=== PATIENT | female | born 1970 | race Caucasian/White ===

== ENCOUNTER 2022-02-01 21:33 | Emergency (ER) | payer BC ==
--- NOTE | 2022-02-01 22:30 | ER ---
Nurse's Notes [facility] Name: Sue Haley Age: 51 yrs Sex: Female : 1970 Arrival Date: 02/01/2022 Time: 21:36 Bed Waiting Private MD: Diagnosis: Presentation: 02/01 21:46 Chief complaint: Patient states: "nauseated for a month, but a really long time". harjinder Coronavirus screen: Vaccine status: Patient reports being unvaccinated. Ebola Screen: Patient negative for fever greater than or equal to 101.5 degrees Fahrenheit, and additional compatible Ebola Virus Disease symptoms Patient denies exposure to infectious person. Patient denies travel to an Ebola-affected area in the 21 days before illness onset. Initial Sepsis Screen: Does the patient meet any 2 criteria? No. Patient's initial sepsis screen is negative. Does the patient have a suspected source of infection? No. Patient's initial sepsis screen is negative. Risk Assessment: Do you want to hurt yourself or someone else? Patient reports no desire to harm self or others. Onset of symptoms is unknown. 21:46 Method Of Arrival: Ambulatory harjinder 21:46 Acuity: ELSY 4 harjinder Triage Assessment: 21:50 General: Appears in no apparent distress. comfortable, Behavior is calm, cooperative. harjinder Pain: Denies pain. GI: Reports nausea. 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 N/A - Post-menopause harjinder Historical: - Allergies: 21:49 Codeine; harjinder - Home Meds: 21:49 aspirin 325 mg Oral tab 1 tab once daily for Prevention of Transient Ischemic Attacks harjinder [Active]; atorvastatin 20 mg Oral tab 1 tab once daily for Prevention of Transient Ischemic Attacks [Active]; Celexa 40 mg Oral tab for Anxiety with Depression [Active]; clonazepam 0.5 mg Oral tab 1 tab 3 times per day for Panic Disorder [Active]; omeprazole 20 mg Oral cpDR 1 cap once daily [Active]; Plavix 75 mg Oral tab 1 tab once daily [Active]; - PMHx: 21:49 Depression; TIA; harjinder - Immunization history:: Client reports having NOT received the Covid vaccine. - Social history:: Smoking status: Reported history of juuling and/or vaping. Patient uses alcohol. Vital Signs: 21:46 BP 103 / 77; Pulse 102; Resp 18; Temp 98.4; Pulse Ox 99% on R/A; Weight 30.84 kg; harjinder Height 5 ft. 0 in. (152.40 cm); Pain 0/10; 21:50 BP 103 / 77; Pulse 102; Resp 18; Temp 98.4; Pulse Ox 98% on R/A; Pain 0/10; harjinder 21:46 Body Mass Index 13.28 (30.84 kg, 152.40 cm) harjinder ED Course: 21:36 Patient arrived in ED. kc5 21:49 Triage completed. harjinder 21:51 Arm band placed on right wrist. harjinder 22:06 Pieter Adames DO is Attending Physician. ms3 22:29 Patient's name was called from ER lobby. No response. Unable to locate patient. Will bb disposition as left without being seen by a provider. Administered Medications: No medications were administered Outcome: 22:30 Patient left the ED. bb Signatures: Addie Chan RN RN bb Pieter Adames DO DO ms3 Georgina Zapata kc5 Addie Gavin RN RN harjinder
[2022-02-01 23:50] VITALS: BP 103/77; TEMP 98.4
[2022-02-01 23:52] VITALS: O2SAT 98
--- NOTE | 2022-02-02 22:30 | EDPHYS ---
Physician Documentation [facility] Name: Sue Haley Age: 51 yrs Sex: Female : 1970 Arrival Date: 02/01/2022 Time: 21:36 Bed Waiting Private MD: ED Physician Pieter Adames HPI: 02/02 04:35 Patient left ED prior to being seen.. 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 N/A - Post-menopause harjinder Historical: - Allergies: 21:49 Codeine; harjinder - Home Meds: 21:49 aspirin 325 mg Oral tab 1 tab once daily for Prevention of Transient Ischemic Attacks harjinder [Active]; atorvastatin 20 mg Oral tab 1 tab once daily for Prevention of Transient Ischemic Attacks [Active]; Celexa 40 mg Oral tab for Anxiety with Depression [Active]; clonazepam 0.5 mg Oral tab 1 tab 3 times per day for Panic Disorder [Active]; omeprazole 20 mg Oral cpDR 1 cap once daily [Active]; Plavix 75 mg Oral tab 1 tab once daily [Active]; - PMHx: 21:49 Depression; TIA; harjinder - Immunization history:: Client reports having NOT received the Covid vaccine. - Social history:: Smoking status: Reported history of juuling and/or vaping. Patient uses alcohol. Vital Signs: 21:46 BP 103 / 77; Pulse 102; Resp 18; Temp 98.4; Pulse Ox 99% on R/A; Weight 30.84 kg; harjinder Height 5 ft. 0 in. (152.40 cm); Pain 0/10; 21:50 BP 103 / 77; Pulse 102; Resp 18; Temp 98.4; Pulse Ox 98% on R/A; Pain 0/10; harjinder 21:46 Body Mass Index 13.28 (30.84 kg, 152.40 cm) harjinder Administered Medications: No medications were administered Disposition Summary: 02/01/22 22:30 Eloped Disposition: before being seen by provider winston Reason: unknown bb Signatures: Addie Chan RN RN Pieter Rodriguez DO DO ms3 Addie Gavin RN RN bo
== END 2022-02-01 22:30 | disposition left against medical advice (07) ==
LOC: ER 21:33
DX: R11.0 Nausea (principal); Z53.21 Procedure and treatment not carried out due to patient leaving prior to being seen by health care provider
CPT/HCPCS: 99281

== ENCOUNTER 2024-06-25 19:55 | Emergency (ER) | payer BC ==
[2024-06-25] MEDS ORDERED: ONDANSETRON 4 MG/2 ML VIAL ONE (22:37)
[2024-06-25] MEDS ORDERED: FAMOTIDINE 20 MG/2 ML VIAL IV ONE (22:37)
[2024-06-25] MEDS ORDERED: NA CHLORIDE 0.9% 1,000 ML ONE (22:37)
[2024-06-25] MEDS ORDERED: MORPHINE 2 MG/ML SYR ONE (22:52)
[2024-06-25 23:06] LABS: Absolute Monocytes 0.6 K/uL (0.1-1.3); Absolute Neutrophil 4.4 K/uL (1.8-8.0); Basophils % 0.3 % (0-1.3); Eosinophils % 0.7 % (0-4.4); Hematocrit 46.3 % (36.0-45.0); Hemoglobin 15.8 g/dL (12.0-15.0); Lymphocytes % 27.6 % (15.3-44.8); MCHC 34.2 g/dL (32.0-36.0); MCV 93.7 fL (80-100); MPV 7.1 fL (7.6-11.3); Monocytes % 9.1 % (3.3-12.3); Neutrophils % 62.3 % (41.7-73.7); Nucleated Red Blood Cells % 0.1 % (0-0); Platelets 373 thou/uL (152-406); RBC Red Blood Cell Count 4.94 M/uL (3.86-4.86); Red Cell Distribution Width 13.3 % (12.1-15.2)
[2024-06-25 23:20] LABS: Albumin 4.2 g/dL (3.4-5.0); Albumin/Globulin Ratio 0.9 (1.1-1.8); Anion Gap 9.1 mEq/L (5.0-15.0); Bilirubin Total 0.4 mg/dL (0.2-1.0); Globulin 4.6 g/dL (2.3-3.5); Potassium 3.1 mEq/L (3.5-5.1); Protein, Total 8.8 g/dL (6.4-8.2)
[2024-06-25 23:54] LABS: Specific Gravity 1.023 (1.005-1.030); Sqamous Epithelial None Seen /HPF (None Seen); Urine Bacteria None Seen /HPF (<20); Urine Bilirubin NEGATIVE (Negative); Urine Blood Trace (Negative); Urine Clarity Clear (Clear); Urine Color Light-Yellow (Yellow); Urine Culture Reflex Order NOT NEEDED; Urine Glucose NEGATIVE (Negative); Urine Ketones 1+ (Negative); Urine Microscopic Reflex YN ORDER UMIC; Urine Mucus Slight /HPF (None Seen); Urine Nitrite NEGATIVE (Negative); Urine Protein TRACE (Negative); Urine RBC <5 /HPF (None Seen); Urine Urobilinogen Normal (Normal); Urine WBC <5 /HPF (<5)
--- NOTE | 2024-06-26 01:00 | EDPHYS ---
Physician Documentation [facility] Name: Sue Haley Age: 54 yrs Sex: Female : 1970 Arrival Date: 06/25/2024 Time: 19:55 Bed 8 Private MD: ED Physician Johann Loco HPI: 06/25 22:30 This 54 yrs old Female presents to ER via Ambulatory with complaints of Abdominal Pain, cp Diarrhea. 22:30 The patient complains of pain in the left flank. Onset: The symptoms/episode cp began/occurred 3 day(s) ago. 22:30 Associated signs and symptoms: Pertinent positives: diarrhea, Pertinent negatives: cp fever, hematuria, vomiting. The patient has experienced similar episodes in the past, today's symptoms are similar, to when the patient was apparently diagnosed with colitis. Historical: - Allergies: 20:22 No Known Allergies; tl4 - Home Meds: 20:22 Celexa 40 mg Oral tab for Anxiety with Depression [Active]; mirtazapine 15 mg Oral tl4 tablet 1 tab every day at bedtime [Active]; omeprazole 20 mg Oral cpDR 1 cap once daily [Active]; - PMHx: 20:22 Depression; Gastroesophageal reflux disease; PTSD; TIA; tl4 - PSHx: 20:23 perforated ulcer; tl4 - Immunization history:: Adult Immunizations unknown. - Infectious Disease History:: Denies. - Social history:: Smoking status: Patient reports the use of cigarette tobacco products, smokes one pack cigarettes per day. ROS: 22:35 Constitutional: Negative for body aches, chills, fever, poor PO intake, cp 22:35 Eyes: Negative for injury, pain, redness, and discharge, cp 22:35 ENT: Negative for drainage from ear(s), ear pain, sore throat, difficulty swallowing, difficulty handling secretions, 22:35 Cardiovascular: Negative for chest pain, palpitations, 22:35 Respiratory: Negative for cough, shortness of breath, wheezing, 22:35 Abdomen/GI: Positive for abdominal pain, diarrhea, Negative for vomiting, constipation, 22:35 Back: Positive for flank pain, on the left, 22:35 Skin: Negative for rash, 22:35 All other systems are negative, Exam: 22:40 Constitutional: The patient appears in no acute distress, alert, awake, cp non-diaphoretic, non-toxic, well developed, well nourished, uncomfortable, 22:40 Head/Face: Normocephalic, atraumatic. cp 22:40 Eyes: Periorbital structures: appear normal, Conjunctiva: normal, no exudate, no injection, Sclera: no appreciated abnormality, Lids and lashes: appear normal, bilaterally, 22:40 ENT: External ear(s): are unremarkable, Nose: is normal, Mouth: Lips: moist, Oral mucosa: pink and intact, moist, Posterior pharynx: Airway: no evidence of obstruction, patent, 22:40 Chest/axilla: Inspection: normal, 22:40 Cardiovascular: Rate: tachycardic, Rhythm: regular, Edema: is not appreciated, JVD: is not appreciated, 22:40 Respiratory: the patient does not display signs of respiratory distress, Respirations: normal, no use of accessory muscles, no retractions, labored breathing, is not present, Breath sounds: are clear throughout, no decreased breath sounds, no stridor, no wheezing, 22:40 Abdomen/GI: Inspection: abdomen appears normal, Bowel sounds: active, all quadrants, Palpation: soft, in all quadrants, moderate abdominal tenderness, in the posterior aspect of left lateral abdomen and anterior aspect of left lateral abdomen, rebound tenderness, is not appreciated, involuntary guarding, is not appreciated, 22:40 Skin: cellulitis, is not appreciated, no rash present. 22:40 Neuro: Orientation: to person, place \T\ time. Mentation: is normal, Motor: moves all fours, Vital Signs: 20:16 BP 187 / 115; Pulse 119; Resp 20; Temp 98.5(O); Pulse Ox 98% on R/A; Weight 38.56 kg; tl4 Height 5 ft. 0 in. ; Pain 8/10; 23:02 BP 165 / 112; Pulse 93; Pulse Ox 97% on R/A; Pain 8/10; tm6 23:31 Pain 2/10; tm6 08/17 00:30 BP 164 / 98; Pulse 95; Pulse Ox 96% on R/A; Pain 2/10; tm6 01:24 BP 154 / 110; Pulse 105; Resp 19; Temp 98.7; Pulse Ox 99% on R/A; Pain 0/10; tm6 08/16 20:16 Body Mass Index 16.60 (38.56 kg, 152.4 cm) tl4 06/25 20:16 Pain Scale: Adult tl4 23:02 Pain Scale: Adult tm6 23:31 Pain Scale: Adult tm6 06/26 00:30 Pain Scale: Adult tm6 01:24 Pain Scale: Adult tm6 MDM: 06/25 20:29 Patient medically screened. cp 06/26 00:58 Data reviewed: vital signs, nurses notes, lab test result(s), radiologic studies, CT cp scan, and as a result, I will discharge patient. 00:58 Differential diagnosis: nephrolithiasis, pyelonephritis, UTI, diverticulitis, colitis. cp I considered the following discharge prescriptions or medication management in the emergency department Medications were administered in the Emergency Department. See MAR. Counseling: I had a detailed discussion with the patient and/or guardian regarding the historical points, exam findings, and any diagnostic results supporting the discharge/admit diagnosis, lab results, radiology results, to return to the emergency department if symptoms worsen or persist or if there are any questions or concerns that arise at home. Response to treatment: the patient's symptoms have markedly improved after treatment, and as a result, I will discharge patient. Special discussion: Based on the patient's Hx, exam, and Dx evaluation, there is no indication for emergent surgery or inpatient Tx. It is understood by the patient/guardian that if the Sx's persist or worsen they need to return immediately for re-evaluation. 06/25 20:34 Order name: CBC with Diff; Complete Time: 00:55 cp 06/26 00:55 Interpretation: Normal except: RBC 4.94; HGB 15.8; HCT 46.3; MPV 7.1. cp 06/25 20:34 Order name: CMP; Complete Time: 00:55 cp 06/26 00:55 Interpretation: Normal except: NA 135; K 3.1; GLUC 132; GFR 85; TP 8.8; GLOB 4.6; A/G cp 0.9. 06/25 20:34 Order name: Lipase; Complete Time: 00:55 cp 06/26 00:56 Interpretation: LIP 198; Reviewed. cp 06/25 20:34 Order name: Urinalysis w/ reflexes; Complete Time: 00:55 cp 06/26 00:56 Interpretation: Normal except: UKET 1+; UBLD Trace; UPROT TRACE. cp 06/25 20:34 Order name: CT Abd/Pelvis - IV Contrast Only cp 06/25 20:34 Order name: IV Saline Lock; Complete Time: 22:59 cp 06/25 20:34 Order name: Labs collected and sent; Complete Time: 22:59 cp Administered Medications: 06/25 22:59 Drug: Ondansetron IVP 4 mg IVP once; over 2 minutes Route: IVP; Site: right antecubital;tm6 23:30 Follow up: Response: No adverse reaction tm6 23:00 Drug: NS 0.9% IV 1000 ml IV at 1 bolus Per protocol; 1000 mL bolus Route: IV; Rate: 1 tm6 bolus; Site: right antecubital; 23:30 Follow up: Response: No adverse reaction; IV Status: Completed infusion; IV Intake: tm6 1000ml 23:00 Drug: Famotidine IVP 20 mg IVP once; dilute with 10 mL 0.9% NaCl; give over 2 minutes tm6 Route: IVP; Site: right antecubital; 23:30 Follow up: Response: No adverse reaction tm6 23:00 Drug: morphine IVP or IV 4 mg IVP once over 4 mins Route: IVP; Infused Over: 4 mins; tm6 Site: right antecubital; 23:31 Follow up: Pain 2/10 Adult; Response: No adverse reaction; Pain is decreased tm6 06/26 01:24 Drug: Potassium PO Effervescent Tablet 50 mEq PO once; dissolve in 4 ounces of water or tm6 juice Route: PO; 01:24 Follow up: Response: Medication administered at discharge. tm6 01:24 Drug: Dicyclomine IM 20 mg IM once Route: IM; Site: right gluteus; tm6 01:24 Follow up: Response: Medication administered at discharge. tm6 01:24 Drug: Loperamide PO 2 mg PO once Route: PO; tm6 01:24 Follow up: Response: Medication Administered at Departure tm6 Disposition Summary: 06/26/24 00:59 Discharge Ordered Notes: Location: Home cp Problem: new cp Symptoms: have improved cp Condition: Stable cp Diagnosis - Diarrhea, unspecified cp - Abdominal pain, unspecified cp Followup: cp - With: Private Physician - When: 2 - 3 days - Reason: Recheck today's complaints Discharge Instructions: - Discharge Summary Sheet cp - Abdominal Pain, Adult cp - Food Choices to Help Relieve Diarrhea, Adult cp - Diarrhea, Adult cp Forms: - Medication Reconciliation Form cp - Antibiotic Education cp - Prescription Opioid Use cp - Patient Portal Instructions cp - Leadership Thank You Letter cp Prescriptions: - Lomotil 2.5-0.025 mg Oral Tablet - take 1 tablet ORAL route every 6 hours As needed; 20 tablet; Refills: 0, cp Product Selection Permitted Signatures: Dispatcher [employer] EDMS Chrsitian Mckeon PA PA cp Bashir Turpin RN RN tm6 Hair Cesar RN RN tl4 Corrections: (The following items were deleted from the chart) 06/25 20:23 20:22 PSHx: perforated ulcer (TIA); tl4 tl4 20:34 20:34 Abdomen Pelvis W Con+CT.RAD.BRZ ordered. EDMS EDMS
--- NOTE | 2024-06-26 01:00 | ER ---
Nurse's Notes [facility] Name: Sue Haley Age: 54 yrs Sex: Female : 1970 Arrival Date: 06/25/2024 Time: 19:55 Bed 8 Private MD: Diagnosis: Diarrhea, unspecified;Abdominal pain, unspecified Presentation: 06/25 20:16 Chief complaint: Patient states: Pt c/o left side abdominal pain, left flank pain, tl4 diarrhea, nausea, and chills x 3 days. Pt has history of colitis and this feels similar. Pt denies urinary sxs, vomiting. Coronavirus screen: diarrhea, nausea. Ebola Screen: No symptoms or risks identified at this time. Initial Sepsis Screen: Does the patient meet any 2 criteria? No. Patient's initial sepsis screen is negative. Does the patient have a suspected source of infection? No. Patient's initial sepsis screen is negative. Risk Assessment: Do you want to hurt yourself or someone else? Patient reports no desire to harm self or others. Onset of symptoms was June 22, 2024. 20:16 Method Of Arrival: Ambulatory tl4 20:16 Acuity: ELSY 3 tl4 Triage Assessment: 20:23 General: Appears uncomfortable, Behavior is calm, cooperative. Pain: Complains of pain tl4 in back and abdomen. EENT: No signs and/or symptoms were reported regarding the EENT system. Neuro: Level of Consciousness is awake, alert, obeys commands, Oriented to person, place, time, situation. Cardiovascular: Capillary refill < 3 seconds Patient's skin is warm and dry. Respiratory: Airway is patent Respiratory effort is even, unlabored, Respiratory pattern is regular, symmetrical. GI: Reports lower abdominal pain, upper abdominal pain, diarrhea, nausea. : No signs and/or symptoms were reported regarding the genitourinary system. Derm: No signs and/or symptoms reported regarding the dermatologic system. Musculoskeletal: No signs and/or symptoms reported regarding the musculoskeletal system. Historical: - Allergies: 20:22 No Known Allergies; tl4 - Home Meds: 20:22 Celexa 40 mg Oral tab for Anxiety with Depression [Active]; mirtazapine 15 mg Oral tl4 tablet 1 tab every day at bedtime [Active]; omeprazole 20 mg Oral cpDR 1 cap once daily [Active]; - PMHx: 20:22 Depression; Gastroesophageal reflux disease; PTSD; TIA; tl4 - PSHx: 20:23 perforated ulcer; tl4 - Immunization history:: Adult Immunizations unknown. - Infectious Disease History:: Denies. - Social history:: Smoking status: Patient reports the use of cigarette tobacco products, smokes one pack cigarettes per day. Screenin:00 [facility] ED Fall Risk Assessment (Adult) History of falling in the last 3 months, tm6 including since admission No falls in past 3 months (0 pts) Confusion or Disorientation No (0 pts) Intoxicated or Sedated No (0 pts) Impaired Gait No (0 pts) Mobility Assist Device Used No (0 pt) Altered Elimination No (0 pt) Score/Fall Risk Level 0 - 2 = Low Risk Oriented to surroundings, Maintained a safe environment, Educated pt \T\ family on fall prevention, incl call for assistance when getting out of bed. Abuse screen: Denies threats or abuse. Denies injuries from another. Nutritional screening: No deficits noted. Tuberculosis screening: No symptoms or risk factors identified. Assessment: 23:00 General: Appears in no apparent distress. Behavior is calm, cooperative. Pain: tm6 Complains of pain in left upper quadrant and left lower quadrant Pain does not radiate. Pain currently is 8 out of 10 on a pain scale. Quality of pain is described as sharp. Neuro: Level of Consciousness is awake, alert, obeys commands, Oriented to person, place, time, situation. Cardiovascular: Patient's skin is warm and dry. Respiratory: Airway is patent Respiratory effort is even, unlabored, Respiratory pattern is regular, symmetrical. GI: Abdomen is flat, non-distended, Bowel sounds present X 4 quads. Abd is soft and non tender X 4 quads. Reports lower abdominal pain, upper abdominal pain, diarrhea, nausea. : No signs and/or symptoms were reported regarding the genitourinary system. EENT: No signs and/or symptoms were reported regarding the EENT system. Derm: No signs and/or symptoms reported regarding the dermatologic system. Musculoskeletal: No signs and/or symptoms reported regarding the musculoskeletal system. 06/26 00:31 Reassessment: Patient appears in no apparent distress at this time. Patient and/or tm6 family updated on plan of care and expected duration. Pain level reassessed. Patient is alert, oriented x 3, equal unlabored respirations, skin warm/dry/pink. Vital Signs: 06/25 20:16 BP 187 / 115; Pulse 119; Resp 20; Temp 98.5(O); Pulse Ox 98% on R/A; Weight 38.56 kg; tl4 Height 5 ft. 0 in. ; Pain 8/10; 23:02 BP 165 / 112; Pulse 93; Pulse Ox 97% on R/A; Pain 8/10; tm6 23:31 Pain 2/10; tm6 06/26 00:30 BP 164 / 98; Pulse 95; Pulse Ox 96% on R/A; Pain 2/10; tm6 01:24 BP 154 / 110; Pulse 105; Resp 19; Temp 98.7; Pulse Ox 99% on R/A; Pain 0/10; tm6 06/25 20:16 Body Mass Index 16.60 (38.56 kg, 152.4 cm) tl4 06/25 20:16 Pain Scale: Adult tl4 23:02 Pain Scale: Adult tm6 23:31 Pain Scale: Adult tm6 06/26 00:30 Pain Scale: Adult tm6 01:24 Pain Scale: Adult tm6 ED Course: 06/25 19:58 Patient arrived in ED. jj6 20:10 Christian Mckeon PA is PHCP. cp 20:10 Johann Loco MD is Attending Physician. cp 20:22 Triage completed. tl4 20:24 Arm band placed on left wrist. tl4 22:35 Bashir Turpin, MORRO is Primary Nurse. tm6 22:59 Inserted saline lock: 22 gauge in right antecubital area, using aseptic technique. tm6 Blood collected. Flushed with 10 mL NS. 22:59 CBC with Diff Sent. tm6 22:59 CMP Sent. tm6 22:59 Lipase Sent. tm6 23:00 Patient has correct armband on for positive identification. Bed in low position. Call tm6 light in reach. Side rails up X 1. Provided Education on: use of call alvarez. Client placed on continuous cardiac and pulse oximetry monitoring. NIBP monitoring applied. Pulse ox on. NIBP on. Door closed. Noise minimized. Lights dimmed. Warm blanket given. Pillow given. 23:35 Urinalysis w/ reflexes Sent. tm6 23:40 CT Abd/Pelvis - IV Contrast Only In Process Unspecified. EDMS 06/26 01:25 No provider procedures requiring assistance completed. IV discontinued, intact, tm6 bleeding controlled, No redness/swelling at site. Pressure dressing applied. Administered Medications: 06/25 22:59 Drug: Ondansetron IVP 4 mg IVP once; over 2 minutes Route: IVP; Site: right antecubital;tm6 23:30 Follow up: Response: No adverse reaction tm6 23:00 Drug: NS 0.9% IV 1000 ml IV at 1 bolus Per protocol; 1000 mL bolus Route: IV; Rate: 1 tm6 bolus; Site: right antecubital; 23:30 Follow up: Response: No adverse reaction; IV Status: Completed infusion; IV Intake: tm6 1000ml 23:00 Drug: Famotidine IVP 20 mg IVP once; dilute with 10 mL 0.9% NaCl; give over 2 minutes tm6 Route: IVP; Site: right antecubital; 23:30 Follow up: Response: No adverse reaction tm6 23:00 Drug: morphine IVP or IV 4 mg IVP once over 4 mins Route: IVP; Infused Over: 4 mins; tm6 Site: right antecubital; 23:31 Follow up: Pain 2/10 Adult; Response: No adverse reaction; Pain is decreased tm6 06/26 01:24 Drug: Potassium PO Effervescent Tablet 50 mEq PO once; dissolve in 4 ounces of water or tm6 juice Route: PO; 01:24 Follow up: Response: Medication administered at discharge. tm6 01:24 Drug: Dicyclomine IM 20 mg IM once Route: IM; Site: right gluteus; tm6 01:24 Follow up: Response: Medication administered at discharge. tm6 01:24 Drug: Loperamide PO 2 mg PO once Route: PO; tm6 01:24 Follow up: Response: Medication Administered at Departure tm6 Medication: 06/25 23:00 VIS not applicable for this client. tm6 Intake: 23:30 IV: 1000ml; Total: 1000ml. tm6 Outcome: 06/26 00:59 Discharge ordered by . cp 01:25 Discharged to home ambulatory, with family, tm6 01:25 Condition: stable 01:25 Discharge instructions given to patient, family, Instructed on discharge instructions, follow up and referral plans. medication usage, Demonstrated understanding of instructions, follow-up care, medications, Prescriptions given X 1, 01:26 Patient left the ED. tm6 Signatures: Dispatcher [employer] EDMS Christian Mckeon PA PA cp Jeffries, Jennifer jj6 Bashir Turpin RN RN tm6 Hair Cesar RN RN tl4 Corrections: (The following items were deleted from the chart) 06/25 20:23 20:22 PSHx: perforated ulcer (TIA); tl4 tl4
[2024-06-26] MEDS ORDERED: POTASSIUM 25 MEQ EFFERV TAB ONE (01:12)
[2024-06-26] MEDS ORDERED: DICYCLOMINE HCL 20 MG/2 ML AMP IM ONE (01:12)
[2024-06-26] MEDS ORDERED: LOPERAMIDE HCL 2 MG CAPSULE ONE (01:12)
[2024-06-26 02:11] VITALS: BP 154/110; TEMP 98.7; O2SAT 99
--- NOTE | 2024-06-26 15:19 | RAD REPORT ---
EXAM DESCRIPTION: CT - Abdomen Pelvis W Contrast - 06/25/2024 11:39 pm DATE: 06/25/2024 8:34 PM CDT CLINICAL HISTORY: 54-year-old female with abdominal pain. ADDITIONAL INFORMATION: None. COMPARISON: CT of the abdomen and pelvis 05/27/2024 TECHNIQUE: Volumetric CT of the abdomen and pelvis acquired following the intravenous administration of contrast. Axial, coronal and sagittal images are provided. The study was performed using dose red uction techniques including automated exposure control and/or adjustment of the MA and/or KV accordin g to patient size, and/or iterative reconstruction techniques. FINDINGS: Lower thorax: Mild bibasilar subsegmental atelectasis and/or fibrosis. No consolidation or pleural effusion. Pulmonary emphysema. Partially visualized heart is normal in size. Liver: Mild diffuse hepatic hypoattenuation, most suggestive of diffuse steatosis Biliary tree: No intra- or extrahepatic bile duct dilation. Gallbladder: No calcified cholelithiasis or pericholecystic inflammation. All bladder is distended an d measures 4.3 cm in transverse dimension. Pancreas: No pancreatic lesion.. Spleen: No splenic lesion. Adrenals: No adrenal gland lesion. Kidneys and ureters: 5 mm nonobstructing right lower pole renal calculus. 1.8 cm left lower pole rita l cyst. No follow-up imaging is recommended. Bladder/reproductive organs: No urinary bladder lesion. Uterus in situ. Gastrointestinal tract: Lower esophagus/stomach: Mild circumferential esophagogastric mural thickening, which can be seen wit h esophagogastritis. Small bowel: 2.5 cm air-containing jejunal diverticulum. Colon: Sigmoid diverticulosis. No diverticulitis. Scattered fluid within portions of the colon which can be seen with diarrhea. Appendix: Normal caliber gas filled appendix. Peritoneum, mesentery and retroperitoneum: No free air, ascites or loculated fluid. Lymph nodes: No pathologic adenopathy based on size criteria. Vasculature: Aorta and branches: Atherosclerotic vascular calcifications, including aortobiiliac calcifications. A brenden has a normal diameter. IVC and veins: Subcentimeter calcified pelvic phleboliths. Bones: Very mild degenerative changes, including multilevel spondylosis. Soft tissues: Minimal subcutaneous tissue stranding which can be seen with edema. IMPRESSION: 1. Mild nonspecific circumferential esophagogastric mural thickening, which can be see n with esophagogastritis. 2. Colonic diverticulosis. 3. Nonobstructing right nephrolithiasis. 4. Mild diffuse hepatic steatosis. 5. Atherosclerotic vascular disease. 6. Additional incidental findings as discussed. Electronically signed by: Db Trujillo MD 06/26/2024 12:44 AM CDT RP Due to temporary technical issues with the PACS/Fluency reporting system, reports are being signed by the in house radiologists without review as a courtesy to insure prompt reporting. The interpreting radiologist is fully responsible for the content of the report.
--- OUTSIDE RECORDS SUMMARY | 2024-06-28 08:57 | XMS REPORT | Continuity of Care Document ---
Author Name Unknown Address [address] [facility] [address] [place] [address] [facility] thconnect Address [address] [facility] 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 Phone Walker_Heather Attending Clinician Unavailable Walker_Heather Admitting Clinician Unavailable Payers Payer Name Policy Type Policy Number Effective Date Expirati on Date Source [place] [employer] [place] [id number] 2021 00:00:00 Allergies, Adverse Reactions, Alerts Allergy Name Allergy Type Status Severity Reaction(s) Onset Date Inactive Date Treating Clinician Comments Source No Known Drug Allergie s DA Active U 03-24 00:00: 00 [facility] Vital Signs Vital Name Observation Time Observation Value Comments S ource Recent Weight Loss/Gain 2021-03-24 13:27:29 Y\S\10 lbs 02 Sat by Pulse Oximetry 2021-03-24 13:27:29 100 /min Body Mass Index 2021-03-24 13:27:29 16.0 Height 2021-03-24 13:27:29 152.4\S\60 Pulse Rate 2021-03-24 13:27:29 99 /min Respiratory Rate 2021-03-24 13:27:29 18 /min Temperature 2021-03-24 13:27:29 36.6\S\97.9 Weight 2021-03-24 13:27:29 15928.574\S\1312 Recent Weight Loss/Gain 2021-03-24 13:14:43 Y\S\10 lbs 02 Sat by Pulse Oximetry 2021-03-24 13:14:43 100 /min Body Mass Index 2021-03-24 13:14:43 16.0 Height 2021-03-24 13:14:43 152.4\S\60 Pulse Rate 2021-03-24 13:14:43 99 /min Respiratory Rate 2021-03-24 13:14:43 18 /min Temperature 2021-03-24 13:14:43 36.6\S\97.9 Weight 2021-03-24 13:14:43 83334.574\S\1312 Recent Weight Loss/Gain 2021-03-24 13:14:12 Y\S\10 lbs 02 Sat by Pulse Oximetry 2021-03-24 13:14:12 100 /min Body Mass Index 2021-03-24 13:14:12 16.0 Height 2021-03-24 13:14:12 152.4\S\60 Pulse Rate 2021-03-24 13:14:12 99 /min Respiratory Rate 2021-03-24 13:14:12 18 /min Temperature 2021-03-24 13:14:12 36.6\S\97.9 Weight 2021-03-24 13:14:12 02010.574\S\1312 Recent Weight Loss/Gain 2021-03-24 13:13:41 Y\S\10 lbs 02 Sat by Pulse Oximetry 2021-03-24 13:13:41 100 /min Body Mass Index 2021-03-24 13:13:41 16.0 Height 2021-03-24 13:13:41 152.4\S\60 Pulse Rate 2021-03-24 13:13:41 99 /min Respiratory Rate 2021-03-24 13:13:41 18 /min Temperature 2021-03-24 13:13:41 36.6\S\97.9 Weight 2021-03-24 13:13:41 82775.574\S\1312 02 Sat by Pulse Oximetry 2021-03-24 11:42:43 100 /min Body Mass Index 2021-03-24 11:42:43 16.0 Height 2021-03-24 11:42:43 152.4\S\60 Pulse Rate 2021-03-24 11:42:43 99 /min Respiratory Rate 2021-03-24 11:42:43 18 /min Temperature 2021-03-24 11:42:43 36.6\S\97.9 Weight 2021-03-24 11:42:43 80030.574\S\1312 02 Sat by Pulse Oximetry 2021-03-24 11:21:44 100 /min Body Mass Index 2021-03-24 11:21:44 16.0 Height 2021-03-24 11:21:44 152.4\S\60 Pulse Rate 2021-03-24 11:21:44 92 /min Respiratory Rate 2021-03-24 11:21:44 18 /min Temperature 2021-03-24 11:21:44 36.7\S\98.1 Weight 2021-03-24 11:21:44 31752.574\S\1312 02 Sat by Pulse Oximetry 2021-03-24 07:01:45 100 /min Body Mass Index 2021-03-24 07:01:45 16.0 Height 2021-03-24 07:01:45 152.4\S\60 Pulse Rate 2021-03-24 07:01:45 92 /min Respiratory Rate 2021-03-24 07:01:45 18 /min Temperature 2021-03-24 07:01:45 36.7\S\98.1 Weight 2021-03-24 07:01:45 13715.574\S\1312 02 Sat by Pulse Oximetry 2021-03-24 06:49:24 100 /min Body Mass Index 2021-03-24 06:49:24 16.0 Height 2021-03-24 06:49:24 152.4\S\60 Pulse Rate 2021-03-24 06:49:24 92 /min Respiratory Rate 2021-03-24 06:49:24 18 /min Temperature 2021-03-24 06:49:24 36.7\S\98.1 Weight 2021-03-24 06:49:24 54432.574\S\1312 02 Sat by Pulse Oximetry 2021-03-24 06:44:49 100 /min Body Mass Index 2021-03-24 06:44:49 16.0 Height 2021-03-24 06:44:49 152.4\S\60 Pulse Rate 2021-03-24 06:44:49 92 /min Respiratory Rate 2021-03-24 06:44:49 18 /min Temperature 2021-03-24 06:44:49 36.7\S\98.1 Weight 2021-03-24 06:44:49 29142.574\S\1312 02 Sat by Pulse Oximetry 2021-03-24 06:41:45 100 /min Body Mass Index 2021-03-24 06:41:45 16.0 Height 2021-03-24 06:41:45 152.4\S\60 Pulse Rate 2021-03-24 06:41:45 92 /min Respiratory Rate 2021-03-24 06:41:45 18 /min Temperature 2021-03-24 06:41:45 36.7\S\98.1 Weight 2021-03-24 06:41:45 26859.574\S\1312 02 Sat by Pulse Oximetry 2021-03-24 06:14:34 100 /min Body Mass Index 2021-03-24 06:14:34 16.0 Height 2021-03-24 06:14:34 152.4\S\60 Pulse Rate 2021-03-24 06:14:34 92 /min Respiratory Rate 2021-03-24 06:14:34 18 /min Temperature 2021-03-24 06:14:34 36.7\S\98.1 Weight 2021-03-24 06:14:34 23878.574\S\1312 02 Sat by Pulse Oximetry 2021-03-24 06:13:02 100 /min Body Mass Index 2021-03-24 06:13:02 16.0 Height 2021-03-24 06:13:02 152.4\S\60 Pulse Rate 2021-03-24 06:13:02 92 /min Respiratory Rate 2021-03-24 06:13:02 18 /min Temperature 2021-03-24 06:13:02 36.7\S\98.1 Weight 2021-03-24 06:13:02 69232.574\S\1312 WEIGHT 2021-03-24 06:07:00 37.976682 kg HEIGHT 2021-03-24 06:07:00 152.4 cm Encounters Start Date/Time End Date/Time Encounter Type Admission Type Attending Clinicians Care Facility Care Department Encounter ID Source 2021-03-24 05:56:00 Inpatient [facility] [id number] [facility] 2022-06-07 00:00:00 2022-06-07 00:00:00 Outpatient Walker_Heat her [facility] [id number] [facility] 2022-04-25 03:47:00 2022-04-25 03:47:00 Outpatient Walker_Heat her [facility] [id number] [facility] 2021-03-24 05:56:00 2021-03-24 05:56:00 Emergency [facility] [id number] 89 [facility] Results Test Description Test Time Test Comments Results Result Co mments Source COVID-19 Status: AsymptomaticComprehensive Metabolic [id number] 06:44:00* Test Item Value Reference Range Interpretation Comme nts SODIUM (test code = NA) 146.0 mmol/L 136.0-145.0 H Potassium,K (test code = K) 3.9 mmol/L 3.0-5.1 N Chloride (test code = CL) 114 mmol/L 98-107 H Carbon Dioxide (test code = CO2) 28 mmol/L 20-31 N Anion Gap (test code = GAP) 4 mmol/L 5-15 L Blood Urea Nitrogen (test co de = BUN) 6 mg/dL 9-23 L Creatinine (test code = CREATT) 0.84 mg/dL 0.55-1.02 N Creatinine Clr Calc Pharmacy (test code = CRCLPHA) 47.57 mL/min Estimated GFR ( [place] (test code = EGFRAA) > 60 mL/min/1.73m2 Estimated GFR (Non Afr [place] (test code = EGFRNAA) > 60 mL/min/1.73m2 BUN/Creatinine Ratio (test c ode = BCRATIO) 7 ratio 10-20 L Glucose (test code = GLU) 89 mg/dL 74-106 N Osmolality,Calculated (test code = OSMOC) 298.1 Calcium (test code = CA) 9.8 mg/dL 8.3-10.6 N Bilirubin,Total (test code = BILIT) 0.4 mg/dL 0.2-1.1 N Aspartate Amino Transferase (test code = AST) 28 U/L 0-34 N Alanine Aminotransferase (te st code = ALT) 14 U/L 10-49 N Total Protein (test code = TP) 8.1 g/dL 5.7-8.2 N Albumin Level (test code = ALB) 5.0 g/dL 3.2-4.8 H Globulin (test code = GLOB) 3.1 mg/dL 2.3-3.5 N Albumin/Globulin Ratio (test code = AGRATIO) 1.6 ratio 0.8-2.0 N Alkaline Phosphatase (test c ode = ALP) 80 U/L 46-116 N Ethanol [id number] 06:44:00* Test Item Value Reference Range Interpretation Comme nts Ethanol (test code = ETOH) 8 mg/dL Complete Blood Count Auto [id number] 06:44:00* Test Item Value Reference Range Interpretation Comme nts White Blood Count (test code = WBCT) 10.6 x10 3/uL 4.4-10.5 H Red Blood Count (test code = RBC) 5.26 x10 6/uL 3.75-5.20 H Hemoglobin (test code = HGBT) 16.0 g/dL 12.2-14.8 H Hematocrit (test code = HCTT) 49.6 % 36.5-44.4 H Mean Corpuscular Volume (delon t code = MCV) 94.30 fL 80.00-100.00 N Mean Corpuscular Hemoglobin (test code = MCH) 30.4 pg 27.0-32.5 N Mean Corpuscular HGB Conc (test code = MCHC) 32.30 g/dL 32.00-37.50 N RDW Coefficient of Variation (test code = RDWCV) 13.4 % 11.5-14.5 N Platelet Count (test code = PLTT) 439.0 x10 3/uL 140.0-440.0 N Mean Platelet Volume (test code = MPV) 9.1 fL Immature Granulocytes % (Aut o) (test code = IMMGRAN%) 0.3 % 0.0-5.0 N Neutrophils % (Auto) (test code = NE%) 75.0 % 36.0-70.0 H Lymphocytes % (Auto) (test code = LY%) 19.3 % 12.0-44.0 N Monocytes % (Auto) (test cod e = MO%) 4.4 % 0.0-11.0 N Eosinophils % (Auto) (test code = EO%) 0.5 % 0.0-7.0 N Basophils % (Auto) (test cod e = BA%) 0.5 % 0.0-2.0 N Immature Granulocytes # (Aut o) (test code = IMMGRAN#) 0.03 x10 3/uL Neutrophils # (Auto) (test code = NE#) 7.9 x10 3/uL 1.6-7.4 H Lymphocytes # (Auto) (test code = LY#) 2.04 x10 3/uL 0.50-4.60 N Monocytes # (Auto) (test cod e = MO#) 0.46 x10 3/uL 0.00-1.20 N Eosinophils # (Auto) (test code = EO#) 0.05 x10 3/uL 0.00-0.74 N Basophils # (Auto) (test cod e = BA#) 0.05 x10 3/uL 0.00-0.21 N nRBC Abs (test code = NRBCA) 0 nRBC Pct (test code = NRBCP) 0 % UA, Urinalysis w [id number] 06:39:00* Test Item Value Reference Range Interpretation Comme nts Color,Urine (test code = UCOL) Yellow Yellow Clarity,Urine (test code = UCLAR) Clear Clear Ph, Urine (test code = UPH) 6.0 5.0-8.0 N Specific [place],Urine (test code = USG) 1.005 1.005-1.030 N Blood,Urine (test code = UBLD) Small cells/uL Negative A Protein,Urine (test code = UPRO) Negative mg/dL Negative Glucose,Urine (UA) (test cod e = UGLU) Negative mg/dL Negative Ketones,Urine (test code = UKET) Negative mg/dL Negative Nitrate,Urine (test code = UNIT) Negative Negative Bilirubin,Urine (test code = UBIL) Negative mg/dL Negative Urobilinogen,Urine (test cod e = UURO) 0.2 mg/dL Negative Leukocyte Esterase,Urine (te st code = ULEU) Small cells/uL Negative A RBC,Urine (test code = URBC.XX) 5-10 /HPF None Seen A WBC,Urine (test code = UWBC.XX) 2-5 /HPF None Seen Squamous Epithelial Cell,Uri ne (test code = USQEPI.XX) 0-5 /HPF None Seen Drug Screen,[id number] 06:39:00* Test Item Value Reference Range Interpretation Comme nts PCP Phencyclidine Screen,Uri ne (test code = PCPU) Negative Negative Amphetamine Screen,Urine (te st code = AMPU) Negative Negative Methadone Screen,Urine (test code = METHU) Negative Negative Opiate Screen,Urine (test co de = UOPIS) Negative Negative Barbituates Screen,Urine (te st code = BARBU) Negative Negative Benzodiazepines Screen,Urine (test code = UBENZS) Positive Negative A Cocaine Screen,Urine (test c ode = UCOCS) Negative Negative Cannabinoid Screen,Urine (te st code = UTHCS) Positive Negative A Propoxyphene Screen, Urine ( test code = UPROP) Negative Negative
== END 2024-06-26 01:26 | disposition home or self-care (01) ==
LOC: ER 19:55
DX: R19.7 Diarrhea, unspecified (principal); R10.9 Unspecified abdominal pain
CPT/HCPCS: 85025; 81001; 36415; 83690; 80053; 74177; 96375; 96372; 96374; 99284; Q9967; J0500; J2270; J2405; J7030

== ENCOUNTER 2024-07-12 15:38 | Emergency (ER) | payer BC ==
--- OUTSIDE RECORDS SUMMARY | 2024-07-12 15:41 | XMS REPORT | Continuity of Care Document ---
Author Name Unknown Address [address] [facility] [address] [place] [address] [facility] thconnect Address [address] [facility] 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 Vital Signs Vital Name Observation Time Observation Value Comments S ource Recent Weight Loss/Gain 2021-03-24 13:27:29 Y\S\10 lbs 02 Sat by Pulse Oximetry 2021-03-24 13:27:29 100 /min Body Mass Index 2021-03-24 13:27:29 16.0 Height 2021-03-24 13:27:29 152.4\S\60 Pulse Rate 2021-03-24 13:27:29 99 /min Respiratory Rate 2021-03-24 13:27:29 18 /min Temperature 2021-03-24 13:27:29 36.6\S\97.9 Weight 2021-03-24 13:27:29 56447.574\S\1312 Recent Weight Loss/Gain 2021-03-24 13:14:43 Y\S\10 lbs 02 Sat by Pulse Oximetry 2021-03-24 13:14:43 100 /min Body Mass Index 2021-03-24 13:14:43 16.0 Height 2021-03-24 13:14:43 152.4\S\60 Pulse Rate 2021-03-24 13:14:43 99 /min Respiratory Rate 2021-03-24 13:14:43 18 /min Temperature 2021-03-24 13:14:43 36.6\S\97.9 Weight 2021-03-24 13:14:43 77312.574\S\1312 Recent Weight Loss/Gain 2021-03-24 13:14:12 Y\S\10 lbs 02 Sat by Pulse Oximetry 2021-03-24 13:14:12 100 /min Body Mass Index 2021-03-24 13:14:12 16.0 Height 2021-03-24 13:14:12 152.4\S\60 Pulse Rate 2021-03-24 13:14:12 99 /min Respiratory Rate 2021-03-24 13:14:12 18 /min Temperature 2021-03-24 13:14:12 36.6\S\97.9 Weight 2021-03-24 13:14:12 52849.574\S\1312 Recent Weight Loss/Gain 2021-03-24 13:13:41 Y\S\10 lbs 02 Sat by Pulse Oximetry 2021-03-24 13:13:41 100 /min Body Mass Index 2021-03-24 13:13:41 16.0 Height 2021-03-24 13:13:41 152.4\S\60 Pulse Rate 2021-03-24 13:13:41 99 /min Respiratory Rate 2021-03-24 13:13:41 18 /min Temperature 2021-03-24 13:13:41 36.6\S\97.9 Weight 2021-03-24 13:13:41 38948.574\S\1312 02 Sat by Pulse Oximetry 2021-03-24 11:42:43 100 /min Body Mass Index 2021-03-24 11:42:43 16.0 Height 2021-03-24 11:42:43 152.4\S\60 Pulse Rate 2021-03-24 11:42:43 99 /min Respiratory Rate 2021-03-24 11:42:43 18 /min Temperature 2021-03-24 11:42:43 36.6\S\97.9 Weight 2021-03-24 11:42:43 11874.574\S\1312 02 Sat by Pulse Oximetry 2021-03-24 11:21:44 100 /min Body Mass Index 2021-03-24 11:21:44 16.0 Height 2021-03-24 11:21:44 152.4\S\60 Pulse Rate 2021-03-24 11:21:44 92 /min Respiratory Rate 2021-03-24 11:21:44 18 /min Temperature 2021-03-24 11:21:44 36.7\S\98.1 Weight 2021-03-24 11:21:44 73319.574\S\1312 02 Sat by Pulse Oximetry 2021-03-24 07:01:45 100 /min Body Mass Index 2021-03-24 07:01:45 16.0 Height 2021-03-24 07:01:45 152.4\S\60 Pulse Rate 2021-03-24 07:01:45 92 /min Respiratory Rate 2021-03-24 07:01:45 18 /min Temperature 2021-03-24 07:01:45 36.7\S\98.1 Weight 2021-03-24 07:01:45 76969.574\S\1312 02 Sat by Pulse Oximetry 2021-03-24 06:49:24 100 /min Body Mass Index 2021-03-24 06:49:24 16.0 Height 2021-03-24 06:49:24 152.4\S\60 Pulse Rate 2021-03-24 06:49:24 92 /min Respiratory Rate 2021-03-24 06:49:24 18 /min Temperature 2021-03-24 06:49:24 36.7\S\98.1 Weight 2021-03-24 06:49:24 62415.574\S\1312 02 Sat by Pulse Oximetry 2021-03-24 06:44:49 100 /min Body Mass Index 2021-03-24 06:44:49 16.0 Height 2021-03-24 06:44:49 152.4\S\60 Pulse Rate 2021-03-24 06:44:49 92 /min Respiratory Rate 2021-03-24 06:44:49 18 /min Temperature 2021-03-24 06:44:49 36.7\S\98.1 Weight 2021-03-24 06:44:49 25723.574\S\1312 02 Sat by Pulse Oximetry 2021-03-24 06:41:45 100 /min Body Mass Index 2021-03-24 06:41:45 16.0 Height 2021-03-24 06:41:45 152.4\S\60 Pulse Rate 2021-03-24 06:41:45 92 /min Respiratory Rate 2021-03-24 06:41:45 18 /min Temperature 2021-03-24 06:41:45 36.7\S\98.1 Weight 2021-03-24 06:41:45 13408.574\S\1312 02 Sat by Pulse Oximetry 2021-03-24 06:14:34 100 /min Body Mass Index 2021-03-24 06:14:34 16.0 Height 2021-03-24 06:14:34 152.4\S\60 Pulse Rate 2021-03-24 06:14:34 92 /min Respiratory Rate 2021-03-24 06:14:34 18 /min Temperature 2021-03-24 06:14:34 36.7\S\98.1 Weight 2021-03-24 06:14:34 95555.574\S\1312 02 Sat by Pulse Oximetry 2021-03-24 06:13:02 100 /min Body Mass Index 2021-03-24 06:13:02 16.0 Height 2021-03-24 06:13:02 152.4\S\60 Pulse Rate 2021-03-24 06:13:02 92 /min Respiratory Rate 2021-03-24 06:13:02 18 /min Temperature 2021-03-24 06:13:02 36.7\S\98.1 Weight 2021-03-24 06:13:02 91698.574\S\1312 WEIGHT 2021-03-24 06:07:00 37.866149 kg HEIGHT 2021-03-24 06:07:00 152.4 cm Encounters Start Date/Time End Date/Time Encounter Type Admission Type Attending Clinicians Care Facility Care Department Encounter ID Source 2021-03-24 05:56:00 Inpatient [facility] [id number] 89 [facility] 2022-06-07 00:00:00 2022-06-07 00:00:00 Outpatient Walker_Heat her [facility] [id number] [facility] 2022-04-25 03:47:00 2022-04-25 03:47:00 Outpatient Walker_Heat her [facility] [id number] [facility] 2021-03-24 05:56:00 2021-03-24 05:56:00 Emergency [facility] [id number] 89 [facility] Results Test Description Test Time Test Comments Results Result Co mments Source COVID-19 Status: AsymptomaticComprehensive Metabolic [id number] 06:44:00* Test Item Value Reference Range Interpretation [...] = ALP) 80 U/L 46-116 N Ethanol [id number] 06:44:00* Test Item Value Reference Range Interpretation Comme nts Ethanol (test code = ETOH) 8 mg/dL Complete Blood Count Auto [id number] 06:44:00* Test Item Value Reference Range Interpretation [...] = NRBCP) 0 % UA, Urinalysis w [id number] 06:39:00* Test Item Value Reference Range Interpretation Comme nts Color,Urine (test code = UCOL) Yellow Yellow Clarity,Urine (test code = UCLAR) Clear Clear Ph, Urine (test code = UPH) 6.0 5.0-8.0 N Specific [place],Urine (test code = USG) 1.005 1.005-1.030 N [...] = USQEPI.XX) 0-5 /HPF None Seen Drug Screen,[id number] 06:39:00* Test Item Value Reference Range Interpretation [...]
[2024-07-12] MEDS ORDERED: MORPHINE 2 MG/ML SYR ONE ×2 (16:38→19:21)
[2024-07-12] MEDS ORDERED: ONDANSETRON 4 MG/2 ML VIAL ONE (16:38)
[2024-07-12] MEDS ORDERED: NA CHLORIDE 0.9% 0 ML ONE (16:38)
[2024-07-12 16:48] LABS: Absolute Lymphocytes (CBC) 1.3 K/uL (0.7-4.9); Absolute Monocytes 0.6 K/uL (0.1-1.3); Absolute Neutrophil 7.1 K/uL (1.8-8.0); Basophils % 0.3 % (0-1.3); Eosinophils % 0.4 % (0-4.4); Hematocrit 44.6 % (36.0-45.0); Hemoglobin 14.9 g/dL (12.0-15.0); Lymphocytes % 14.7 % (15.3-44.8); MCH 31.7 pg (27.0-35.0); MCHC 33.4 g/dL (32.0-36.0); MCV 94.8 fL (80-100); MPV 6.7 fL (7.6-11.3); Monocytes % 6.3 % (3.3-12.3); Neutrophils % 78.3 % (41.7-73.7); Nucleated Red Blood Cells % 0.1 % (0-0); Platelets 420 thou/uL (152-406); RBC Red Blood Cell Count 4.71 M/uL (3.86-4.86); Red Cell Distribution Width 14.2 % (12.1-15.2)
[2024-07-12 16:52] LABS: PT Prothrombin Time 11.9 SECONDS (9.4-12.5); PTT, Activated Partial Thromb 41.4 SECONDS (24.3-36.9); Protime INR 1.06
[2024-07-12 17:01] LABS: Albumin 3.7 g/dL (3.4-5.0); Albumin/Globulin Ratio 0.9 (1.1-1.8); Anion Gap 10.2 mEq/L (5.0-15.0); Bilirubin Total 0.4 mg/dL (0.2-1.0); Potassium 3.2 mEq/L (3.5-5.1); Protein, Total 7.7 g/dL (6.4-8.2)
[2024-07-12 17:53] LABS: Specific Gravity 1.014 (1.005-1.030); Sqamous Epithelial <5 /HPF (None Seen); Urine Bacteria None Seen /HPF (<20); Urine Bilirubin NEGATIVE (Negative); Urine Blood Trace (Negative); Urine Clarity Clear (Clear); Urine Color Light-Yellow (Yellow); Urine Crystals Unidentified Few /HPF (None Seen); Urine Culture Reflex Order NOT NEEDED; Urine Glucose NEGATIVE (Negative); Urine Ketones 1+ (Negative); Urine Microscopic Reflex YN ORDER UMIC; Urine Nitrite NEGATIVE (Negative); Urine Protein NEGATIVE (Negative); Urine RBC <5 /HPF (None Seen); Urine Urobilinogen Normal (Normal); Urine WBC <5 /HPF (<5); Urine pH 6.5 (5.0-7.0)
[2024-07-12] MEDS ORDERED: NA CHLORIDE 0.9% 1,000 ML ONE (18:03)
--- NOTE | 2024-07-12 18:21 | RAD REPORT ---
EXAM DESCRIPTION: CTAbdomen Angio - 07/12/2024 6:07 pm CLINICAL HISTORY: r/o ischemic colitis;Abd pain COMPARISON: Abdomen Pelvis W Contrast dated 06/25/2024 TECHNIQUE: CTA of the abdomen was performed with IV contrast . 3D maximum intensity pixel (MIP) [place] nstructions were created All CT scans are performed using dose optimization technique as appropriate and may include automated exposure control or mA/KV adjustment according to patient size. FINDINGS: NONVASCULAR: Lower chest: Mild circumferential thickened distal esophagus. Liver: No acute abnormality or suspicious lesions. Biliary: Nonspecific distended gallbladder. No pericholecystic inflammatory changes though the gallbl adder is only partially imaged. Stomach: Wall thickening present at the gastric antrum. Suspected surgical staple at the antrum. Duodenum: No significant focal abnormality. Pancreas: No significant abnormality. Spleen: No significant abnormality. Adrenal: No suspicious lesions. Kidney/ureter: No hydronephrosis. 5 mm stone in lower pole right kidney. Too small to characterize an d/or benign appearing renal lesions are noted. Retroperitoneum: No retroperitoneal adenopathy. Bowel: No significant focal abnormality. Peritoneum: No ascites or free air. Bones: No acute fracture. VASCULAR: Aortic atherosclerosis. No aneurysm. No dissection. The celiac trunk is widely patent. The SMA is widely patent. Both renal arteries are widely patent. Mild narrowing present at the visualized portions of the common iliac arteries. IMPRESSION: 1. No aortic aneurysm or aortic dissection. No hemodynamically significant stenosis invo lving the major branches of the abdominal aorta. 2. Moderate thickening at the gastric antrum could reflect gastritis. The distal esophagus is also mi ldly thickened. Endoscopy could further evaluate these findings.
[2024-07-12] MEDS ORDERED: CEFTRIAXONE 1000 MG/VIAL ONE (18:54)
[2024-07-12] MEDS ORDERED: METRONIDAZOLE 500mg IVPB 500 MG/100 ML BAG IV ONE (18:55)
[2024-07-12] MEDS ORDERED: POTASSIUM 25 MEQ EFFERV TAB ONE (18:55)
[2024-07-12] MEDS ORDERED: FAMOTIDINE 20 MG/2 ML VIAL IV ONE (18:55)
[2024-07-12] MEDS ORDERED: METOCLOPRAMIDE 10 MG/2mL INJ ONE (19:21)
--- NOTE | 2024-07-12 19:44 | EDPHYS ---
Physician Documentation [facility] Name: Sue Haley Age: 54 yrs Sex: Female : 1970 Arrival Date: 07/12/2024 Time: 15:38 Bed 19 Private MD: ED Physician Reinier Mendiola HPI: 07/12 16:16 This 54 yrs old Female presents to ER via Ambulatory with complaints of Abdominal Pain. sb4 16:16 Patient reports diffuse abdominal pain, nausea, vomiting, and diarrhea that began 4 sb4 days ago. She states that the symptoms are similar to when she was diagnosed with colitis back in May. States that she was seen at [facility] ED 2 days ago, had blood work and CT done. Was told she had low potassium but her CT scan was normal. She was discharged with antiemetics. She states that her symptoms have not improved, she is still having pain, nausea, vomiting, and diarrhea. She denies any blood in her stool or vomit. She does have a history of peptic ulcer disease and states she is compliant with her omeprazole. 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 - Infectious Disease History:: Denies. - Social history:: Smoking status: Patient reports the use of cigarette tobacco products, smokes one-half pack cigarettes per day, Reported history of juuling and/or vaping. ROS: 16:16 Constitutional: Negative for fever, chills, and weight loss, sb4 16:16 Abdomen/GI: Positive for abdominal pain, nausea, vomiting, and diarrhea, 16:16 All other systems are negative, Exam: 16:16 Head/Face: Normocephalic, atraumatic. Eyes: Extra-ocular motions intact. Periorbital sb4 areas with no swelling, redness, or edema. Respiratory: Lungs have equal breath sounds bilaterally, clear to auscultation and percussion. No rales, rhonchi or wheezes noted. No increased work of breathing, no retractions or nasal flaring. Skin: Warm, dry with normal turgor. Normal color with no rashes, no lesions, and no evidence of cellulitis. 16:16 Constitutional: The patient appears alert, awake, frail, 16:16 Cardiovascular: Rate: tachycardic, Rhythm: regular, 16:16 Abdomen/GI: Inspection: abdomen appears normal, Bowel sounds: normal, Palpation: soft, mild abdominal tenderness, in the right upper quadrant, left upper quadrant, right lower quadrant and left lower quadrant, Vital Signs: 16:01 BP 158 / 116; Pulse 120; Resp 18; Temp 98.4; Pulse Ox 98% ; Weight 36.29 kg; Height 5 db ft. 0 in. ; Pain 8/10; 16:56 BP 160 / 107; Pulse 103; Resp 17; Pulse Ox 99% on R/A; rs5 18:06 BP 174 / 102; Pulse 101; Resp 17; Pulse Ox 99% ; rs5 19:10 BP 181 / 111; Pulse 106; Resp 17; Pulse Ox 98% on R/A; pc2 20:20 Pulse 99; Resp 16; Pulse Ox 100% ; pc2 16:01 Body Mass Index 15.62 (36.29 kg, 152.4 cm) db 16:01 Pain Scale: Adult db MDM: 15:52 Patient medically screened. sb4 19:42 Data reviewed: vital signs, nurses notes, lab test result(s), radiologic studies, and sb4 as a result, I will discharge patient. Counseling: I had a detailed discussion with the patient and/or guardian regarding the historical points, exam findings, and any diagnostic results supporting the discharge/admit diagnosis, lab results, radiology results, the need for outpatient follow up, for definitive care, a manager card, to return to the emergency department if symptoms worsen or persist or if there are any questions or concerns that arise at home. 07/12 16:15 Order name: Blood Culture Adult (2) sb4 07/12 16:15 Order name: CBC with Diff; Complete Time: 16:55 sb4 07/12 16:15 Order name: CMP; Complete Time: 17:02 sb4 07/12 16:15 Order name: Lactate w/ 2H reflex if indic.; Complete Time: 17:04 sb4 07/12 16:15 Order name: Protime (+inr); Complete Time: 16:54 sb4 07/12 16:15 Order name: Ptt, Activated; Complete Time: 16:54 sb4 07/12 16:15 Order name: Urinalysis w/ reflexes; Complete Time: 17:53 sb4 07/12 16:15 Order name: CT Abdomen - Angio; Complete Time: 18:23 sb4 07/12 16:15 Order name: Cardiac monitoring; Complete Time: 16:47 sb4 07/12 16:15 Order name: IV Saline Lock - Large Bore; Complete Time: 16:47 sb4 07/12 16:15 Order name: Labs collected and sent; Complete Time: 16:47 sb4 07/12 16:15 Order name: O2 Per Protocol; Complete Time: 16:47 sb4 07/12 16:15 Order name: O2 Sat Monitoring; Complete Time: 16:47 sb4 07/12 16:15 Order name: Vital Signs; Complete Time: 16:47 sb4 07/12 18:31 Order name: PO challenge; Complete Time: 20:19 sb4 Administered Medications: 16:46 Drug: Ondansetron IVP 4 mg IVP once; over 2 minutes Route: IVP; Infused Over: 2 mins; tl4 Site: right antecubital; 17:01 Follow up: Response: No adverse reaction rs5 16:47 Drug: NS 0.9% IV 1000 ml IV at 1 bolus Per protocol; 1000 mL bolus Route: IV; Rate: 1 tl4 bolus; Site: right antecubital; Delivery: Primary tubing; 18:01 Follow up: IV Status: Completed infusion rs5 16:47 Drug: morphine IVP or IV 2 mg IVP once over 4 mins Route: IVP; Infused Over: 4 mins; tl4 Site: right antecubital; 17:05 Follow up: Response: No adverse reaction; Pain is decreased rs5 18:06 Drug: NS 0.9% IV 1000 ml IV at 1 bolus Per protocol; 1000 mL bolus Route: IV; Rate: 1 rs5 bolus; Site: left antecubital; 19:00 Follow up: Response: No adverse reaction; IV Status: Completed infusion; IV Intake: pc2 1000ml 18:30 Drug: Potassium PO Effervescent Tablet 50 mEq PO once; dissolve in 4 ounces of water or rs5 juice Route: PO; 19:00 Follow up: Response: No adverse reaction pc2 18:30 Drug: Rocephin IV 1 grams IV at calculated rate once; Given slow IV push per pharmacy rs5 instructions Route: IV; Rate: calculated rate; Site: right antecubital; 19:00 Follow up: Response: No adverse reaction; IV Status: Completed infusion; IV Intake: [id number] 18:30 Drug: metroNIDAZOLE IVPB 500 mg 100 ml IVPB at 200 ml/hr once over 30 mins Volume: 100 rs5 ml; Route: IVPB; Rate: 200 ml/hr; Infused Over: 30 mins; Site: right antecubital; 19:30 Follow up: Response: No adverse reaction; IV Status: Completed infusion; IV Intake: pc2 100ml 18:30 Drug: Famotidine IVP 20 mg IVP once; dilute with 10 mL 0.9% NaCl; give over 2 minutes rs5 Route: IVP; Site: right antecubital; 19:00 Follow up: Response: No adverse reaction pc2 19:35 Drug: morphine IVP or IV 2 mg IVP once over 4 mins Route: IVP; Infused Over: 4 mins; pc2 Site: right antecubital; 20:00 Follow up: Response: No adverse reaction pc2 19:35 Drug: metoCLOPramide IVP 10 mg IVP once; over 1 to 2 minutes Route: IVP; Site: right pc2 antecubital; 20:00 Follow up: Response: No adverse reaction pc2 Disposition: 07/13 13:28 Co-signature as Attending Physician, Reinier Mendiola MD I reviewed the patient's care rt provided by the Advanced Practice Provider and agree with the diagnosis and treatment plan. Disposition Summary: 07/12/24 19:44 Discharge Ordered Notes: Location: Home sb4 Problem: new sb4 Symptoms: have improved sb4 Condition: Stable sb4 Diagnosis - Acute gastritis without bleeding sb4 - Esophagitis, unspecified sb4 - Hypokalemia sb4 - Elevated blood-pressure reading, without diagnosis of hypertension sb4 Followup: sb4 - With: Kevin Morales MD - When: 1 week - Reason: Further diagnostic work-up, Recheck today's complaints, Re-evaluation by your physician Discharge Instructions: - Discharge Summary Sheet sb4 - Food Choices to Help Relieve Diarrhea, Adult sb4 - Gastritis, Adult, [id number] sb4 - How to Take Your Blood Pressure, [id number] sb4 Forms: - Antibiotic Education sb4 - Patient Portal Instructions sb4 - Leadership Thank You Letter sb4 Prescriptions: - promethazine 50 mg Rectal suppository - insert 0.5 suppository RECTAL route every 4 to 6 hours; 10 suppository; sb4 Refills: 0, Product Selection Permitted - Flagyl 500 mg Oral Tablet - take 1 tablet ORAL route every 12 hours for 7 days; 14 tablet; Refills: 0, sb4 Product Selection Permitted - Pepcid 20 mg Oral Tablet - take 1 tablet ORAL route every 12 hours for 5 days; 10 tablet; Refills: 0, sb4 Product Selection Permitted - Cipro 500 mg Oral Tablet - take 1 tablet ORAL route every 12 hours for 7 days; 14 tablet; Refills: 0, sb4 Product Selection Permitted - dicyclomine 20 mg Oral tablet - take 1 tablet ORAL route 3 times per day; 20 tablet; Refills: 0, Product sb4 Selection Permitted Signatures: Dispatcher [employer] Delores Bustillos, RN RN db Naya Aparicio PA-C PAEzequiel sb4 Reinier Mendiola MD MD rt Toño Bray RN RN rs5 Hair Cesar RN RN tl4 Kasia Valle, RN RN pc2 Corrections: (The following items were deleted from the chart) 07/12 16:48 16:16 LACTATE+C.LAB.BRZ ordered. EDMS EDMS
--- NOTE | 2024-07-12 19:44 | ER ---
Nurse's Notes [facility] Name: Sue Haley Age: 54 yrs Sex: Female : 1970 Arrival Date: 07/12/2024 Time: 15:38 Bed 19 Private MD: Diagnosis: Acute gastritis without bleeding;Esophagitis, unspecified;Hypokalemia;Elevated blood-pressure reading, without diagnosis of hypertension Presentation: 07/12 16:01 Chief complaint: Patient states: ABD PAIN STARTED FRIDAY SEEN AT [place] ON FRIDAY. db STATES RECENTLY DIAGNOSED WITH COLITIS IN MAY. YESTERDAY DIAGNOSED WITH LOW POTASSIUM AND POTASSIUM WAS TREATED . PAIN IS STILL PRESENT. Coronavirus screen: Client denies travel out of the [place] in the last 14 days. At this time, the client does not indicate any symptoms associated with coronavirus-19. Ebola Screen: Patient negative for fever greater than or equal to 101.5 degrees Fahrenheit, and additional compatible Ebola Virus Disease symptoms Patient denies exposure to infectious person. Patient denies travel to an Ebola-affected area in the 21 days before illness onset. No symptoms or risks identified at this time. Initial Sepsis Screen: Does the patient meet any 2 criteria? No. Patient's initial sepsis screen is negative. Does the patient have a suspected source of infection? No. Patient's initial sepsis screen is negative. Risk Assessment: Do you want to hurt yourself or someone else? Patient reports no desire to harm self or others. Onset of symptoms was July 12, 2024. 16:01 Method Of Arrival: Ambulatory db 16:01 Acuity: ELSY 3 db Triage Assessment: 16:03 General: Appears in no apparent distress. comfortable, slender, Behavior is calm, db cooperative. Pain: Complains of pain in abdomen. Neuro: Level of Consciousness is awake, alert, obeys commands, Oriented to person, place, time, situation. Respiratory: Airway is patent Respiratory effort is even, unlabored, Respiratory pattern is regular, symmetrical. GI: Abdomen is tender to palpation in left upper quadrant and left lower quadrant Reports lower abdominal pain, upper abdominal pain, nausea, vomiting. 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 - Infectious Disease History:: Denies. - Social history:: Smoking status: Patient reports the use of cigarette tobacco products, smokes one-half pack cigarettes per day, Reported history of juuling and/or vaping. Screenin:04 [facility] ED Fall Risk Assessment (Adult) History of falling in the last 3 months, rs5 including since admission No falls in past 3 months (0 pts) Confusion or Disorientation No (0 pts) Intoxicated or Sedated No (0 pts) Impaired Gait No (0 pts) Mobility Assist Device Used No (0 pt) Altered Elimination No (0 pt) Score/Fall Risk Level 0 - 2 = Low Risk Oriented to surroundings, Maintained a safe environment. Abuse screen: Denies threats or abuse. Nutritional screening: No deficits noted. Tuberculosis screening: No symptoms or risk factors identified. Assessment: 16:02 General: Appears in no apparent distress. uncomfortable, Behavior is calm, cooperative. rs5 Pain: Complains of pain in abdomen Pain currently is 8 out of 10 on a pain scale. Quality of pain is described as aching, Is continuous. Neuro: Level of Consciousness is awake, alert, obeys commands, Oriented to person, place, time, situation. Cardiovascular: Patient's skin is warm and dry. Respiratory: Airway is patent Respiratory effort is even, unlabored, Respiratory pattern is regular, symmetrical. GI: Abdomen is round non-distended, Bowel sounds present X 4 quads. : No signs and/or symptoms were reported regarding the genitourinary system. EENT: No signs and/or symptoms were reported regarding the EENT system. Derm: Skin is intact, Skin is pink, warm \T\ dry. Musculoskeletal: Range of motion: intact in all extremities. 16:59 Reassessment: Patient and/or family updated on plan of care and expected duration. Pain rs5 level reassessed. Patient is alert, oriented x 3, equal unlabored respirations, skin warm/dry/pink. Patient denies pain at this time. Patient states feeling better. 17:51 Reassessment:. Pain: Complains of pain in abdomen Pain currently is 8 out of 10 on a rs5 pain scale. Quality of pain is described as aching, Is continuous. GI: Reports nausea. 17:51 Reassessment: provider notified pt is experiencing nausea and pain. rs5 18:01 Reassessment: Patient and/or family updated on plan of care and expected duration. Pain rs5 level reassessed. Patient is alert, oriented x 3, equal unlabored respirations, skin warm/dry/pink. Patient states feeling better. Patient states symptoms have improved. 20:29 Reassessment: Patient appears in no apparent distress at this time. Patient and/or pc2 family updated on plan of care and expected duration. Pain level reassessed. Patient is alert, oriented x 3, equal unlabored respirations, skin warm/dry/pink. Patient states symptoms have improved. Vital Signs: 16:01 BP 158 / 116; Pulse 120; Resp 18; Temp 98.4; Pulse Ox 98% ; Weight 36.29 kg; Height 5 db ft. 0 in. ; Pain 8/10; 16:56 BP 160 / 107; Pulse 103; Resp 17; Pulse Ox 99% on R/A; rs5 18:06 BP 174 / 102; Pulse 101; Resp 17; Pulse Ox 99% ; rs5 19:10 BP 181 / 111; Pulse 106; Resp 17; Pulse Ox 98% on R/A; pc2 20:20 Pulse 99; Resp 16; Pulse Ox 100% ; pc2 16:01 Body Mass Index 15.62 (36.29 kg, 152.4 cm) db 16:01 Pain Scale: Adult db ED Course: 15:41 Patient arrived in ED. mr 15:48 Naya Aparicio [facility]C [facility] sb4 15:48 Reinier Mendiola MD is Attending Physician. sb4 16:03 Triage completed. db 16:03 Arm band placed on Patient placed in an exam room. db 16:17 Toño Bray, MORRO is Primary Nurse. rs5 16:40 No provider procedures requiring assistance completed. Initial lab(s) drawn, by me, tl4 sent to lab. First set of blood cultures drawn by me, Second set of blood cultures drawn by me. 16:47 Blood Culture Adult (2) Sent. tl4 16:47 CBC with Diff Sent. tl4 16:48 Protime (+inr) Sent. tl4 16:48 Ptt, Activated Sent. tl4 16:48 Protime (+inr) Sent. tl4 16:48 CMP Sent. tl4 16:48 CBC with Diff Sent. tl4 16:48 Blood Culture Adult (2) Sent. tl4 16:48 Inserted saline lock: 22 gauge in left antecubital area, using aseptic technique. Blood tl4 collected. Flushed with 10 mL NS. 16:50 Patient has correct armband on for positive identification. Bed in low position. Call tl4 light in reach. Side rails up X 1. Adult w/ patient. Provided Education on: call alvarez. Client placed on continuous cardiac and pulse oximetry monitoring. NIBP monitoring applied. nurse monitoring on. 18:09 CT Abdomen - Angio In Process Unspecified. EDMS 19:44 Kevin Morales MD is Referral Physician. sb4 20:30 IV discontinued, intact, bleeding controlled, No redness/swelling at site. Pressure pc2 dressing applied. Administered Medications: 16:46 Drug: Ondansetron IVP 4 mg IVP once; over 2 minutes Route: IVP; Infused Over: 2 mins; tl4 Site: right antecubital; 17:01 Follow up: Response: No adverse reaction rs5 16:47 Drug: NS 0.9% IV 1000 ml IV at 1 bolus Per protocol; 1000 mL bolus Route: IV; Rate: 1 tl4 bolus; Site: right antecubital; Delivery: Primary tubing; 18:01 Follow up: IV Status: Completed infusion rs5 16:47 Drug: morphine IVP or IV 2 mg IVP once over 4 mins Route: IVP; Infused Over: 4 mins; tl4 Site: right antecubital; 17:05 Follow up: Response: No adverse reaction; Pain is decreased rs5 18:06 Drug: NS 0.9% IV 1000 ml IV at 1 bolus Per protocol; 1000 mL bolus Route: IV; Rate: 1 rs5 bolus; Site: left antecubital; 19:00 Follow up: Response: No adverse reaction; IV Status: Completed infusion; IV Intake: pc2 1000ml 18:30 Drug: Potassium PO Effervescent Tablet 50 mEq PO once; dissolve in 4 ounces of water or rs5 juice Route: PO; 19:00 Follow up: Response: No adverse reaction pc2 18:30 Drug: Rocephin IV 1 grams IV at calculated rate once; Given slow IV push per pharmacy rs5 instructions Route: IV; Rate: calculated rate; Site: right antecubital; 19:00 Follow up: Response: No adverse reaction; IV Status: Completed infusion; IV Intake: [id number] 18:30 Drug: metroNIDAZOLE IVPB 500 mg 100 ml IVPB at 200 ml/hr once over 30 mins Volume: 100 rs5 ml; Route: IVPB; Rate: 200 ml/hr; Infused Over: 30 mins; Site: right antecubital; 19:30 Follow up: Response: No adverse reaction; IV Status: Completed infusion; IV Intake: pc2 100ml 18:30 Drug: Famotidine IVP 20 mg IVP once; dilute with 10 mL 0.9% NaCl; give over 2 minutes rs5 Route: IVP; Site: right antecubital; 19:00 Follow up: Response: No adverse reaction pc2 19:35 Drug: morphine IVP or IV 2 mg IVP once over 4 mins Route: IVP; Infused Over: 4 mins; pc2 Site: right antecubital; 20:00 Follow up: Response: No adverse reaction pc2 19:35 Drug: metoCLOPramide IVP 10 mg IVP once; over 1 to 2 minutes Route: IVP; Site: right pc2 antecubital; 20:00 Follow up: Response: No adverse reaction pc2 Medication: 16:57 VIS not applicable for this client. rs5 Intake: 19:00 IV: 1000ml; Total: 1000ml. pc2 19:00 IV: 10ml; Total: 1010ml. pc2 19:30 IV: 100ml; Total: 1110ml. pc2 Outcome: 19:44 Discharge ordered by . sb4 20:29 Discharged to home ambulatory, with family, pc2 20:29 Condition: stable 20:29 Discharge instructions given to patient, Instructed on discharge instructions, follow up and referral plans. medication usage, Demonstrated understanding of instructions, follow-up care, medications, Prescriptions given X 5 20:32 Patient left the ED. pc2 Signatures: Dispatcher [employer] EDMS Kecia Gardner, Reg Reg mr Delores Kligore, RN RN Naya Parrish PA-C PA-C sb4 Toño Bray RN RN rs5 Hair Cesar RN RN tl4 Kasia Valle, RN RN pc2 Corrections: (The following items were deleted from the chart) 16:48 16:47 LACTATE+C.LAB.BRZ drawn and sent. 4 ALEXEIND
[2024-07-12 21:01] VITALS: TEMP 98.4
[2024-07-12 21:04] VITALS: BP 181/111
[2024-07-12 21:05] VITALS: O2SAT 100
== END 2024-07-12 20:32 | disposition home or self-care (01) ==
LOC: ER 15:38
DX: K29.00 Acute gastritis without bleeding (principal); K20.90 Esophagitis, unspecified without bleeding; E87.6 Hypokalemia; R03.0 Elevated blood-pressure reading, without diagnosis of hypertension; F17.210 Nicotine dependence, cigarettes, uncomplicated
CPT/HCPCS: 96361; 96365; 96368; 96375; 99285

== ENCOUNTER 2024-09-16 16:58 | Emergency (ER) | payer BC ==
--- OUTSIDE RECORDS SUMMARY | 2024-09-16 17:01 | XMS REPORT | Continuity of Care Document ---
Author Name Unknown Address [address] [facility] [address] [place], [place] [id number] [place] [address] thconnect Address [address] [facility] [address] [place] [address] Care Team Providers Care Shoveler Name Role Phone Walker_Heather Attending Clinician Unavailable Walker_Heather Admitting Clinician Unavailable Payers Payer Name Policy Type Policy Number Effective Date Expirati on Date Source [place] [employer] [place] [id number] 2021 00:00:00 Problems Condition Name Condition Details Condition Category Status Onset Date Resolution Date Last Treatment Date Treating Clinician Comments Source Stomach cramps Stomach Cramps Problem Active 2023-11 00:00: 00 [facility] Essential hypertensi on Essential Hypertensi on Problem Active 07-15 00:00: 00 [facility] Chronic obstructiv e pulmonary disease Chronic Obstructiv e Pulmonary Disease Problem Active 07-15 00:00: 00 [facility] Gastric ulcer Gastric Ulcer Problem Active 07-15 00:00: 00 [facility] Gastric ulcer with perforatio n Gastric Ulcer with Perforatio n Problem Active 07-15 00:00: 00 [facility] Low back pain Low Back Pain Problem Active 07-15 00:00: 00 [facility] Fatigue Fatigue Problem Active 07-15 00:00: 00 [facility] Hyperchole sterolemia Hyperchole sterolemia Problem Active 07-15 00:00: 00 [facility] Anxiety Anxiety Problem Active 07-15 00:00: 00 [facility] Posttrauma tic stress disorder Posttrauma tic Stress Disorder Problem Active 07-15 00:00: 00 [facility] Depressive disorder Depressive Disorder Problem Active 07-15 00:00: 00 [facility] Migraine Migraine Problem Active 07-15 00:00: 00 [facility] Lesion of brain Lesion of Brain Problem Active 07-15 00:00: 00 [facility] Allergies, Adverse Reactions, Alerts Allergy Name Allergy Type Status Severity Reaction(s) Onset Date Inactive Date Treating Clinician Comments Source No Known Drug Allergie s DA Active U 03-24 00:00: 00 [facility] Social History Smoking Status Start Date Stop Date Source Heavy Tobacco Smoker [facility] Medications Ordered Medication Name Filled Medication Name Start Date Stop Date Current Medication? Ordering Clinician Indication Dosage Frequency Signature (SIG) Comments Components Source albuterol sulfate 2.5 mg/3 mL (0.083 %) solution for nebulizatio n albuterol sulfate 2.5 mg/3 mL (0.083 %) solution for nebulizatio n No albuterol sulfate 2.5 mg/3 mL (0.083 %) solution for nebulizati on [facility] albuterol sulfate HFA 90 mcg/actuati on aerosol inhaler Inhale 2 puffs every 4 hours by inhalation route as needed, for cough/wheez ing. albuterol sulfate HFA 90 mcg/actuati on aerosol inhaler Inhale 2 puffs every 4 hours by inhalation route as needed, for cough/wheez ing. No 2puff(s ) Q4H albuterol sulfate HFA 90 mcg/actuat ion aerosol inhaler Inhale 2 puffs every 4 hours by inhalation route as needed, for cough/whee zing. [facility] amlodipine 5 mg tablet Take 1 tablet every day by oral route for 90 days. amlodipine 5 mg tablet Take 1 tablet every day by oral route for 90 days. No 1 Q1D amlodipine 5 mg tablet Take 1 tablet every day by oral route for 90 days. [facility] citalopram 40 mg tablet citalopram 40 mg tablet No citalopram 40 mg tablet [facility] dicyclomine 20 mg tablet Take 1 tablet 4 times a day by oral route as needed, for abdominal cramping. dicyclomine 20 mg tablet Take 1 tablet 4 times a day by oral route as needed, for abdominal cramping. No 1 QID dicyclomin e 20 mg tablet Take 1 tablet 4 times a day by oral route as needed, for abdominal cramping. [facility] mirtazapine 30 mg tablet mirtazapine 30 mg tablet No mirtazapin e 30 mg tablet [facility] omeprazole 40 mg capsule,del ayed release Take 1 capsule every day by oral route for 90 days. omeprazole 40 mg capsule,del ayed release Take 1 capsule every day by oral route for 90 days. No 1capsul e(s) Q1D omeprazole 40 mg capsule,de layed release Take 1 capsule every day by oral route for 90 days. [facility] ondansetron 4 mg disintegrat ing tablet TAKE 1 TABLET BY MOUTH EVERY 6 HOURS NEEDED FOR NAUSEA/VOMI TING ondansetron 4 mg disintegrat ing tablet TAKE 1 TABLET BY MOUTH EVERY 6 HOURS NEEDED FOR NAUSEA/VOMI TING No ondansetro n 4 mg disintegra ting tablet TAKE 1 TABLET BY MOUTH EVERY 6 HOURS NEEDED FOR NAUSEA/VOM ITING [facility] tramadol 50 mg tablet Take 1 tablet every 8 hours by oral route as needed, for pain. tramadol 50 mg tablet Take 1 tablet every 8 hours by oral route as needed, for pain. No 1 Q8H tramadol 50 mg tablet Take 1 tablet every 8 hours by oral route as needed, for pain. [facility] Promethegan 50 mg rectal suppository Promethegan 50 mg rectal suppository No Promethega n 50 mg rectal suppositor y [facility] Vital Signs Vital Name Observation Time Observation Value Comments S ource BMI (Body Mass Index) 2024-08-19 00:00:00 15.6 kg/m2 [facility] BP Diastolic 2024-08-19 00:00:00 92 mm[Hg] [facility] Body Weight 2024-08-19 00:00:00 1232 [oz_av] [facility] Height 2024-08-19 00:00:00 59 [in_i] [facility] BP Systolic 2024-08-19 00:00:00 130 mm[Hg] [facility] BP Systolic 2024-07-15 00:00:00 142 mm[Hg] [facility] BP Diastolic 2024-07-15 00:00:00 92 mm[Hg] [facility] Height 2024-07-15 00:00:00 59 [in_i] [facility] Body Weight 2024-07-15 00:00:00 1296 [oz_av] [facility] BMI (Body Mass Index) 2024-07-15 00:00:00 16.4 kg/m2 [facility] Recent Weight Loss/Gain 2021-03-24 13:27:29 Y\S\10 lbs 02 Sat by Pulse Oximetry 2021-03-24 13:27:29 100 /min Body Mass Index 2021-03-24 13:27:29 16.0 Height 2021-03-24 13:27:29 152.4\S\60 Pulse Rate 2021-03-24 13:27:29 99 /min Respiratory Rate 2021-03-24 13:27:29 18 /min Temperature 2021-03-24 13:27:29 36.6\S\97.9 Weight 2021-03-24 13:27:29 00776.574\S\1312 Recent Weight Loss/Gain 2021-03-24 13:14:43 Y\S\10 lbs 02 Sat by Pulse Oximetry 2021-03-24 13:14:43 100 /min Body Mass Index 2021-03-24 13:14:43 16.0 Height 2021-03-24 13:14:43 152.4\S\60 Pulse Rate 2021-03-24 13:14:43 99 /min Respiratory Rate 2021-03-24 13:14:43 18 /min Temperature 2021-03-24 13:14:43 36.6\S\97.9 Weight 2021-03-24 13:14:43 72966.574\S\1312 Recent Weight Loss/Gain 2021-03-24 13:14:12 Y\S\10 lbs 02 Sat by Pulse Oximetry 2021-03-24 13:14:12 100 /min Body Mass Index 2021-03-24 13:14:12 16.0 Height 2021-03-24 13:14:12 152.4\S\60 Pulse Rate 2021-03-24 13:14:12 99 /min Respiratory Rate 2021-03-24 13:14:12 18 /min Temperature 2021-03-24 13:14:12 36.6\S\97.9 Weight 2021-03-24 13:14:12 27883.574\S\1312 Recent Weight Loss/Gain 2021-03-24 13:13:41 Y\S\10 lbs 02 Sat by Pulse Oximetry 2021-03-24 13:13:41 100 /min Body Mass Index 2021-03-24 13:13:41 16.0 Height 2021-03-24 13:13:41 152.4\S\60 Pulse Rate 2021-03-24 13:13:41 99 /min Respiratory Rate 2021-03-24 13:13:41 18 /min Temperature 2021-03-24 13:13:41 36.6\S\97.9 Weight 2021-03-24 13:13:41 16416.574\S\1312 02 Sat by Pulse Oximetry 2021-03-24 11:42:43 100 /min Body Mass Index 2021-03-24 11:42:43 16.0 Height 2021-03-24 11:42:43 152.4\S\60 Pulse Rate 2021-03-24 11:42:43 99 /min Respiratory Rate 2021-03-24 11:42:43 18 /min Temperature 2021-03-24 11:42:43 36.6\S\97.9 Weight 2021-03-24 11:42:43 34903.574\S\1312 02 Sat by Pulse Oximetry 2021-03-24 11:21:44 100 /min Body Mass Index 2021-03-24 11:21:44 16.0 Height 2021-03-24 11:21:44 152.4\S\60 Pulse Rate 2021-03-24 11:21:44 92 /min Respiratory Rate 2021-03-24 11:21:44 18 /min Temperature 2021-03-24 11:21:44 36.7\S\98.1 Weight 2021-03-24 11:21:44 27187.574\S\1312 02 Sat by Pulse Oximetry 2021-03-24 07:01:45 100 /min Body Mass Index 2021-03-24 07:01:45 16.0 Height 2021-03-24 07:01:45 152.4\S\60 Pulse Rate 2021-03-24 07:01:45 92 /min Respiratory Rate 2021-03-24 07:01:45 18 /min Temperature 2021-03-24 07:01:45 36.7\S\98.1 Weight 2021-03-24 07:01:45 57965.574\S\1312 02 Sat by Pulse Oximetry 2021-03-24 06:49:24 100 /min Body Mass Index 2021-03-24 06:49:24 16.0 Height 2021-03-24 06:49:24 152.4\S\60 Pulse Rate 2021-03-24 06:49:24 92 /min Respiratory Rate 2021-03-24 06:49:24 18 /min Temperature 2021-03-24 06:49:24 36.7\S\98.1 Weight 2021-03-24 06:49:24 32972.574\S\1312 02 Sat by Pulse Oximetry 2021-03-24 06:44:49 100 /min Body Mass Index 2021-03-24 06:44:49 16.0 Height 2021-03-24 06:44:49 152.4\S\60 Pulse Rate 2021-03-24 06:44:49 92 /min Respiratory Rate 2021-03-24 06:44:49 18 /min Temperature 2021-03-24 06:44:49 36.7\S\98.1 Weight 2021-03-24 06:44:49 82264.574\S\1312 02 Sat by Pulse Oximetry 2021-03-24 06:41:45 100 /min Body Mass Index 2021-03-24 06:41:45 16.0 Height 2021-03-24 06:41:45 152.4\S\60 Pulse Rate 2021-03-24 06:41:45 92 /min Respiratory Rate 2021-03-24 06:41:45 18 /min Temperature 2021-03-24 06:41:45 36.7\S\98.1 Weight 2021-03-24 06:41:45 91653.574\S\1312 02 Sat by Pulse Oximetry 2021-03-24 06:14:34 100 /min Body Mass Index 2021-03-24 06:14:34 16.0 Height 2021-03-24 06:14:34 152.4\S\60 Pulse Rate 2021-03-24 06:14:34 92 /min Respiratory Rate 2021-03-24 06:14:34 18 /min Temperature 2021-03-24 06:14:34 36.7\S\98.1 Weight 2021-03-24 06:14:34 07800.574\S\1312 02 Sat by Pulse Oximetry 2021-03-24 06:13:02 100 /min Body Mass Index 2021-03-24 06:13:02 16.0 Height 2021-03-24 06:13:02 152.4\S\60 Pulse Rate 2021-03-24 06:13:02 92 /min Respiratory Rate 2021-03-24 06:13:02 18 /min Temperature 2021-03-24 06:13:02 36.7\S\98.1 Weight 2021-03-24 06:13:02 38381.574\S\1312 WEIGHT 2021-03-24 06:07:00 37.809245 kg HEIGHT 2021-03-24 06:07:00 152.4 cm Encounters Start Date/Time End Date/Time Encounter Type Admission Type Attending Clinicians Care Facility Care Department Encounter ID Source 2021-03-24 05:56:00 Inpatient [facility] [id number] 89 [facility] 2024-08-19 00:00:00 2024-08-19 00:00:00 Grace GoncalvespreetgaldinoERNIE-EVAPORATOR SUPERVISOR-B C: [address] [place] [address] , Ph. [facility] [address] [facility] 2024-07-15 00:00:00 2024-07-15 00:00:00 Grace GoncalvespreetgaldinoERNIE-EVAPORATOR SUPERVISOR-B C: [address] [place] [address] , Ph. [facility] [address] [facility] 2022-06-07 00:00:00 2022-06-07 00:00:00 Outpatient Walker_Heat her [facility] [id number] [facility] 2022-04-25 03:47:00 2022-04-25 03:47:00 Outpatient Walker_Heat her [facility] [id number] [facility] 2021-03-24 05:56:00 2021-03-24 05:56:00 Emergency [facility] [id number] [facility] Results Test Description Test Time Test Comments Results Result Co mments Source COVID-19 Status: AsymptomaticComprehensive Metabolic [id number] 06:44:00* Test Item Value Reference Range Interpretation [...] = ALP) 80 U/L 46-116 N Ethanol [id number] 06:44:00* Test Item Value Reference Range Interpretation Comme nts Ethanol (test code = ETOH) 8 mg/dL Complete Blood Count Auto [id number] 06:44:00* Test Item Value Reference Range Interpretation [...] = NRBCP) 0 % UA, Urinalysis w [id number] 06:39:00* Test Item Value Reference Range Interpretation Comme nts Color,Urine (test code = UCOL) Yellow Yellow Clarity,Urine (test code = UCLAR) Clear Clear Ph, Urine (test code = UPH) 6.0 5.0-8.0 N Specific [place],Urine (test code = USG) 1.005 1.005-1.030 N [...] = USQEPI.XX) 0-5 /HPF None Seen Drug Screen,[id number] 06:39:00* Test Item Value Reference Range Interpretation [...]
[2024-09-16] MEDS ORDERED: MORPHINE 4 MG/ML SYR ONE (17:52)
[2024-09-16] MEDS ORDERED: ONDANSETRON 4 MG/2 ML VIAL ONE ×2 (17:52→20:13)
[2024-09-16] MEDS ORDERED: NA CHLORIDE 0.9% 1,000 ML ONE (17:53)
[2024-09-16] MEDS ORDERED: FAMOTIDINE 20 MG/2 ML VIAL IV ONE (17:53)
[2024-09-16 18:03] LABS: Absolute Basophils 0.1 K/uL (0-0.5); Absolute Lymphocytes (CBC) 0.9 K/uL (0.7-4.9); Absolute Monocytes 0.6 K/uL (0.1-1.3); Absolute Neutrophil 9.1 K/uL (1.8-8.0); Basophils % 0.6 % (0-1.3); Hematocrit 43.9 % (36.0-45.0); Hemoglobin 14.9 g/dL (12.0-15.0); Lymphocytes % 8.7 % (15.3-44.8); MCH 32.4 pg (27.0-35.0); MCHC 33.9 g/dL (32.0-36.0); MCV 95.5 fL (80-100); MPV 6.5 fL (7.6-11.3); Monocytes % 5.6 % (3.3-12.3); Neutrophils % 85.1 % (41.7-73.7); Platelets 585 thou/uL (152-406); Red Cell Distribution Width 16.4 % (12.1-15.2)
[2024-09-16 18:20] LABS: Albumin 3.9 g/dL (3.4-5.0); Albumin/Globulin Ratio 0.9 (1.1-1.8); Anion Gap 10.5 mEq/L (5.0-15.0); Bilirubin Total 0.6 mg/dL (0.2-1.0); Globulin 4.4 g/dL (2.3-3.5); Protein, Total 8.3 g/dL (6.4-8.2)
[2024-09-16 18:24] LABS: Potassium 3.5 mEq/L (3.5-5.1)
--- NOTE | 2024-09-16 19:56 | RAD REPORT ---
EXAMINATION: CT Abdomen Pelvis W Contrast CLINICAL INDICATION: Female, 54 years old. Abd pain;Nausea / vomiting TECHNIQUE: CT abdomen and pelvis was performed, after the administration of IV contrast, as per [facility] protocol. Axial, sagittal and coronal reconstructions were obtained. One or more of the following dose reduction techniques were used: Automated exposure control, adjustment of the mA and k V according to patient size, and iterative reconstruction. Unless otherwise specified, incidental findings do not require dedicated imaging follow-up. COMPARISON: 06/25/2024 FINDINGS: LOWER CHEST: The visualized lung bases are clear. LIVER: Normal in size and contour. No focal lesion. BILIARY SYSTEM: No suspicious abnormalities. SPLEEN: Normal size. No focal lesion. PANCREAS: No mass, ductal dilation, or shahla-pancreatic fluid. ADRENALS: Normal; no mass. KIDNEYS: Normal size and contour. No hydronephrosis. Right lower renal pole 4 mm calculus. Left lower pole 1.9 cm cyst. URINARY BLADDER: Unremarkable. GASTROINTESTINAL TRACT: Gastric wall thickening along the distal body and antrum. No evidence of free air, significant intra-abdominal free fluid, bowel obstruction or abscess. APPENDIX: Normal appendix. LYMPH NODES: No lymphadenopathy. MUSCULOSKELETAL: No acute or suspicious osseous abnormality. ADDITIONAL FINDINGS: None. IMPRESSION: Gastric wall thickening along the distal body and antrum, may suggest gastritis. Right lower renal pole nonobstructing 4 mm calculus.
[2024-09-16 20:08] LABS: Blood Morphology Comment NOT SEEN (NOT SEEN); Platelet Estimate INCR; White Blood Cell Scan OK (OK)
--- NOTE | 2024-09-16 20:09 | ER ---
Nurse's Notes [facility] Name: Sue Haley Age: 54 yrs Sex: Female : 1970 Arrival Date: 09/16/2024 Time: 16:58 Bed 16 Private MD: Diagnosis: Acute gastritis without bleeding;Nausea with vomiting, unspecified Presentation: 09/16 18:02 Chief complaint: Patient states: N/V/D x 2 days. Coronavirus screen: Vaccine status: ph Patient reports receiving the 2nd dose of the covid vaccine. Ebola Screen: No symptoms or risks identified at this time. Initial Sepsis Screen: Does the patient meet any 2 criteria? No. Patient's initial sepsis screen is negative. Does the patient have a suspected source of infection? No. Patient's initial sepsis screen is negative. Risk Assessment: Do you want to hurt yourself or someone else? Patient reports no desire to harm self or others. Onset of symptoms was September 16, 2024. 18:02 Method Of Arrival: Ambulatory 18:02 Acuity: ELSY 3 Triage Assessment: 18:03 General: Appears in no apparent distress. comfortable, slender, Behavior is calm, ph cooperative, appropriate for age, Denies fever. Pain: Complains of pain in back. Neuro: Level of Consciousness is awake, alert, obeys commands, Oriented to person, place, time, situation. Cardiovascular: Capillary refill < 3 seconds in bilateral fingers Patient's skin is warm and dry. Respiratory: Airway is patent Respiratory effort is even, unlabored, Respiratory pattern is regular, symmetrical. GI: Abdomen is flat, non-distended, Reports diarrhea, nausea, vomiting. Derm: Skin is pink, warm \T\ dry. Musculoskeletal: Circulation, motion, and sensation intact. Range of motion: intact in all extremities. Historical: - Allergies: 18:10 No Known Allergies; ph - PMHx: 18:10 Depression; Gastroesophageal reflux disease; PTSD; TIA; ph - PSHx: 18:10 perforated ulcer; ph - Immunization history:: Adult Immunizations unknown. - Infectious Disease History:: Denies. - Family history:: not pertinent. - Social history:: Smoking status: unknown. - Hospitalizations: : No recent hospitalization is reported. Screenin:10 [facility] ED Fall Risk Assessment (Adult) History of falling in the last 3 months, ph including since admission No falls in past 3 months (0 pts) Confusion or Disorientation No (0 pts) Intoxicated or Sedated No (0 pts) Impaired Gait No (0 pts) Mobility Assist Device Used No (0 pt) Altered Elimination No (0 pt) Score/Fall Risk Level 0 - 2 = Low Risk Oriented to surroundings, Maintained a safe environment, Hourly rounding (assess needs \T\ fall precautionary measures) done. Abuse screen: Denies threats or abuse. Denies injuries from another. Nutritional screening: No deficits noted. Tuberculosis screening: No symptoms or risk factors identified. Assessment: 18:09 General: SEE TRIAGE ASSESSMENT. ph Vital Signs: 18:02 BP 143 / 108; Pulse 18; Resp 18; Temp 97.8; Pulse Ox 99% on R/A; Weight 36.29 kg; ph Height 4 ft. 11 in. ; 19:20 BP 128 / 84; Pulse 88; Resp 17; Temp 98; Pulse Ox 99% on R/A; Pain 5/10; rg5 20:15 BP 131 / 86; Pulse 99; Resp 17; Pulse Ox 98% on R/A; Pain 5/10; rg5 18:02 Body Mass Index 16.16 (36.29 kg, 149.86 cm) ph 19:20 Pain Scale: Adult rg5 20:15 Pain Scale: Adult rg5 ED Course: 17:00 Patient arrived in ED. im 17:05 Ken Garcia MD is Attending Physician. rn 17:09 Arm band placed on Patient placed in an exam room, on a stretcher. ll1 17:22 Radiology exam delayed due to lab results not completed at this time. (BUN/Creatinine). nj 17:22 Radiology exam delayed due to IV insertion attempt and/or patient not having nj appropriate IV at this time. 17:32 Petra Juarez, RN is Primary Nurse. ph 18:03 Triage completed. ph 18:10 Patient has correct armband on for positive identification. Bed in low position. Call light in reach. Side rails up X 1. Pulse ox on. NIBP on. Door closed. Noise minimized. Warm blanket given. Pillow given. 18:10 Initial lab(s) drawn, by me, sent to lab. Inserted saline lock: 22 gauge in left ph forearm, using aseptic technique. Blood collected. Flushed with 10 mL NS. 18:46 CT Abd/Pelvis - IV Contrast Only In Process Unspecified. EDMS 19:10 No provider procedures requiring assistance completed. rg5 20:20 IV discontinued, bleeding controlled, No redness/swelling at site. Pressure dressing rg5 applied. Administered Medications: 18:02 Drug: Famotidine IVP 20 mg IVP once; dilute with 10 mL 0.9% NaCl; give over 2 minutes ph Route: IVP; Site: left forearm; 19:02 Follow up: Response: No adverse reaction ph 18:02 Drug: Ondansetron IVP 4 mg IVP once; over 2 minutes Route: IVP; Site: left forearm; ph 19:02 Follow up: Response: No adverse reaction ph 18:02 Drug: morphine IVP or IV 4 mg IVP once over 4 mins Route: IVP; Infused Over: 4 mins; ph Site: left forearm; 20:25 Follow up: Response: No adverse reaction; Pain is decreased rg5 18:02 Drug: NS 0.9% IV 1000 ml IV at 1 bolus Per protocol; to be given as a bolus over 60 ph minutes Route: IV; Rate: 1 bolus; Site: left forearm; 19:30 Follow up: IV Status: Completed infusion; IV Intake: 1000ml rg5 20:11 Drug: Ondansetron IVP 4 mg IVP once; over 2 minutes Route: IVP; Site: left antecubital; rg5 20:25 Follow up: Response: No adverse reaction rg5 20:11 Drug: traMADol PO 50 mg PO once Route: PO; rg5 20:25 Follow up: Response: No adverse reaction; Pain is decreased rg5 20:11 Drug: GI Cocktail without - (Maalox PO 30 ml, Lidocaine Mucous Membrane 2 % 15 rg5 ml) PO once Route: PO; 20:24 Follow up: Response: No adverse reaction rg5 Medication: 18:10 VIS not applicable for this client. ph Intake: 19:30 IV: 1000ml; Total: 1000ml. rg5 Outcome: 20:08 Discharge ordered by MD. ortega 20:20 Discharged to home ambulatory, rg5 20:20 Condition: stable 20:20 Discharge instructions given to patient, Instructed on discharge instructions, Demonstrated understanding of instructions, Prescriptions given X 2, 20:30 Patient left the ED. rg5 Signatures: Dispatcher [employer] EDMS Jose, Ken, MD MD rn Larry, Petra RN RN [facility], Shantell Garcia RN RN ll1 Yue Sanchez Rommel RN RN rg5
--- NOTE | 2024-09-16 20:09 | EDPHYS ---
Physician Documentation [facility] Name: Sue Haley Age: 54 yrs Sex: Female : 1970 Arrival Date: 09/16/2024 Time: 16:58 Bed 16 Private MD: ED Physician Ken Garcia HPI: 09/16 17:25 This 54 yrs old Female presents to ER via Unassigned with complaints of rn Nausea/Vomiting/Diarrhea, Back Pain. 17:25 The patient presents to the emergency department with nausea, vomiting, diarrhea. rn Onset: The symptoms/episode began/occurred 2 day(s) ago. Possible causes: unknown. The symptoms are aggravated by food , The symptoms are alleviated by nothing. Severity of symptoms: At their worst the symptoms were moderate in the emergency department the symptoms are unchanged. The patient has experienced similar episodes in the past. The patient has not recently seen a physician. Patient reports nausea/vomiting/diarrhea, no blood in emesis, also having mid back pain. Has history of gastritis and gastric ulcers with gastric ulcer perforation. Does not take blood thinners. No trauma. No chest pain.. Historical: - Allergies: 18:10 No Known Allergies; ph - PMHx: 18:10 Depression; Gastroesophageal reflux disease; PTSD; TIA; ph - PSHx: 18:10 perforated ulcer; ph - Immunization history:: Adult Immunizations unknown. - Infectious Disease History:: Denies. - Family history:: not pertinent. - Social history:: Smoking status: unknown. - Hospitalizations: : No recent hospitalization is reported. ROS: 17:25 Constitutional: Negative for fever, chills, and weight loss, Cardiovascular: Negative rn for chest pain, palpitations, and edema, Respiratory: Negative for shortness of breath, cough, wheezing, and pleuritic chest pain, Abdomen/GI: Positive for nausea/vomiting/diarrhea Back: Positive for mid back pain : Negative for injury, bleeding, discharge, and swelling, MS/Extremity: Negative for injury and deformity, Skin: Negative for injury, rash, and discoloration, Neuro: Negative for headache, numbness, tingling, and seizure, Exam: 17:25 Constitutional: This is a well developed, well nourished patient who is awake, alert, rn and in no acute distress. Holding emesis bag with brown contents. Nonbloody Cardiovascular: Regular rate and rhythm. No pulse deficits. Respiratory: No increased work of breathing, no retractions or nasal flaring. Abdomen/GI: Soft, mild epigastric tenderness. No rebound or guarding Back: No spinal tenderness. No costovertebral tenderness. Neuro: Awake and alert, GCS 15 Vital Signs: 18:02 BP 143 / 108; Pulse 18; Resp 18; Temp 97.8; Pulse Ox 99% on R/A; Weight 36.29 kg; ph Height 4 ft. 11 in. ; 19:20 BP 128 / 84; Pulse 88; Resp 17; Temp 98; Pulse Ox 99% on R/A; Pain 5/10; rg5 20:15 BP 131 / 86; Pulse 99; Resp 17; Pulse Ox 98% on R/A; Pain 5/10; rg5 18:02 Body Mass Index 16.16 (36.29 kg, 149.86 cm) ph 19:20 Pain Scale: Adult rg5 20:15 Pain Scale: Adult rg5 MDM: 17:05 Medical Screening Exam initiated rn 20:06 Differential diagnosis: Nonspecific abd pain, gastritis, pancreatitis, appendicitis, rn viral gastroenteritis, gastroenteritis. Data reviewed: vital signs, nurses notes, lab test result(s), radiologic studies, CT scan, and as a result, I will discharge patient. Counseling: I had a detailed discussion with the patient and/or guardian regarding the historical points, exam findings, and any diagnostic results supporting the discharge/admit diagnosis, lab results, radiology results, the need for outpatient follow up, to return to the emergency department if symptoms worsen or persist or if there are any questions or concerns that arise at home. Response to treatment: the patient's symptoms have markedly improved after treatment, and as a result, I will discharge patient. Special discussion: I discussed with the patient/guardian in detail that at this point there is no indication for admission to the hospital. It is understood, however, that if the symptoms persist or worsen the patient needs to return immediately for re-evaluation. Based on the history and exam findings, there is no indication for further emergent testing or inpatient evaluation. I discussed with the patient/guardian the need to see the aeronautical engineering teacher for further evaluation of the symptoms. ED course: Patient markedly improved, no longer vomiting, normal H\T\H and CT shows gastritis. Patient feels much better, no indication for emergent admission at this time. Will discharge home with continuation of her antacid medication, dietary changes and as needed Zofran. Patient has appointment with her GI for scope. 09/16 17:18 Order name: CBC with Diff; Complete Time: 20:10 rn 09/16 17:18 Order name: CMP; Complete Time: 18:36 rn 09/16 17:18 Order name: Lipase; Complete Time: 18:36 rn 09/16 20:09 Order name: CBC Smear Scan; Complete Time: 20:10 EDMS 09/16 17:18 Order name: CT Abd/Pelvis - IV Contrast Only; Complete Time: 20:01 rn 09/16 17:18 Order name: IV Saline Lock; Complete Time: 18:02 rn 09/16 17:18 Order name: Labs collected and sent; Complete Time: 18:02 rn Administered Medications: 18:02 Drug: Famotidine IVP 20 mg IVP once; dilute with 10 mL 0.9% NaCl; give over 2 minutes ph Route: IVP; Site: left forearm; 19:02 Follow up: Response: No adverse reaction ph 18:02 Drug: Ondansetron IVP 4 mg IVP once; over 2 minutes Route: IVP; Site: left forearm; ph 19:02 Follow up: Response: No adverse reaction ph 18:02 Drug: morphine IVP or IV 4 mg IVP once over 4 mins Route: IVP; Infused Over: 4 mins; ph Site: left forearm; 20:25 Follow up: Response: No adverse reaction; Pain is decreased rg5 18:02 Drug: NS 0.9% IV 1000 ml IV at 1 bolus Per protocol; to be given as a bolus over 60 ph minutes Route: IV; Rate: 1 bolus; Site: left forearm; 19:30 Follow up: IV Status: Completed infusion; IV Intake: 1000ml rg5 20:11 Drug: Ondansetron IVP 4 mg IVP once; over 2 minutes Route: IVP; Site: left antecubital; rg5 20:25 Follow up: Response: No adverse reaction rg5 20:11 Drug: traMADol PO 50 mg PO once Route: PO; rg5 20:25 Follow up: Response: No adverse reaction; Pain is decreased rg5 20:11 Drug: GI Cocktail without - (Maalox PO 30 ml, Lidocaine Mucous Membrane 2 % 15 rg5 ml) PO once Route: PO; 20:24 Follow up: Response: No adverse reaction rg5 Disposition Summary: 09/16/24 20:08 Discharge Ordered Notes: Location: Home rn Problem: new rn Symptoms: have improved rn Condition: Stable rn Diagnosis - Acute gastritis without bleeding rn - Nausea with vomiting, unspecified rn Followup: rn - With: Private Physician - When: As needed - Reason: Recheck today's complaints, Re-evaluation by your physician Discharge Instructions: - Discharge Summary Sheet rn - Gastritis, Adult rn - Nausea and Vomiting, Adult rn Forms: - Medication Reconciliation Form rn - Antibiotic director internal audit - Prescription Opioid Use rn - Patient Portal Instructions rn - Leadership Thank You Letter rn Prescriptions: - ondansetron 4 mg Oral Tablet,disintegrating - take 1 tablet ORAL route every 8 hours As needed; 14 tablet; Refills: 0, rn Product Selection Permitted - Tramadol 50 mg Oral Tablet - take 1 tablet ORAL route every 8 hours as needed; 12 tablet; Refills: 0, rn Product Selection Permitted Signatures: Dispatcher [employer] EDMS Ken Garcia MD MD rn Hall, Patricia, RN RN ph Gallardo, Rommel, RN RN rg5 Corrections: (The following items were deleted from the chart) 17:26 17:25 Constitutional: Negative for fever, chills, and weight loss, Cardiovascular: rn Negative for chest pain, palpitations, and edema, Respiratory: Negative for shortness of breath, cough, wheezing, and pleuritic chest pain, Abdomen/GI: Positive for nausea/vomiting/diarrhea Back: Positive for mid back pain MS/Extremity: Negative for injury and deformity, Skin: Negative for injury, rash, and discoloration, Neuro: Negative for headache, numbness, tingling, and seizure, rn
[2024-09-16] MEDS ORDERED: MAGNES/ALUMIN/SIMET 30ML UCUP ONE (20:14)
[2024-09-16] MEDS ORDERED: LIDOCAINE VISCOUS 2% 10ML ORAL SOLN ONE (20:14)
[2024-09-16] MEDS ORDERED: TRAMADOL HCL 50 MG TAB ONE (20:14)
[2024-09-16 21:13] VITALS: TEMP 98
[2024-09-16 21:14] VITALS: BP 131/86; O2SAT 98
== END 2024-09-16 20:30 | disposition home or self-care (01) ==
LOC: ER 16:58
DX: K29.00 Acute gastritis without bleeding (principal)
CPT/HCPCS: 85025; 36415; 83690; 80053; 74177; 99284; Q9967; J2405 ×2; J7030

== ENCOUNTER 2024-09-17 22:28 | Emergency (ER) | payer BC ==
--- OUTSIDE RECORDS SUMMARY | 2024-09-17 22:32 | XMS REPORT | Continuity of Care Document ---
Author Name Unknown Address [address] [facility] [address] [place], [place] [id number] [place] [address] thconnect Address [address] [facility] [address] [place] [address] Care Team Providers Care Marketing Operations Assistant Name Role Phone Walker_Heather Attending Clinician Unavailable Walker_Heather Admitting Clinician Unavailable Payers Payer Name Policy Type Policy Number Effective Date Expirati on Date Source [place] [employer] [place] [id number] 2021 00:00:00 Problems Condition Name Condition Details Condition Category Status Onset Date Resolution Date Last Treatment Date Treating Clinician Comments Source Stomach cramps Stomach Cramps Problem Active 2023-11 00:00: 00 [facility] Essential hypertensi on Essential Hypertensi on Problem Active 07-15 00:00: 00 [facility] Chronic obstructiv e pulmonary disease Chronic Obstructiv e Pulmonary Disease Problem Active 07-15 00:00: 00 [facility] Gastric ulcer Gastric Ulcer Problem Active 07-15 00:00: 00 [facility] Gastric ulcer with perforatio n Gastric Ulcer with Perforatio n Problem Active 07-15 00:00: 00 [facility] Low back pain Low Back Pain Problem Active 07-15 00:00: 00 [facility] Fatigue Fatigue Problem Active 07-15 00:00: 00 [facility] Hyperchole sterolemia Hyperchole sterolemia Problem Active 07-15 00:00: 00 [facility] Anxiety Anxiety Problem Active 07-15 00:00: 00 [facility] Posttrauma tic stress disorder Posttrauma tic Stress Disorder Problem Active 07-15 00:00: 00 [facility] Depressive disorder Depressive Disorder Problem Active 07-15 00:00: 00 [facility] Migraine Migraine Problem Active 07-15 00:00: 00 [facility] Lesion of brain Lesion of Brain Problem Active 07-15 00:00: 00 [facility] Allergies, Adverse Reactions, Alerts Allergy Name Allergy Type Status Severity Reaction(s) Onset Date Inactive Date Treating Clinician Comments Source No Known Drug Allergie s DA Active U 03-24 00:00: 00 [facility] Social History Smoking Status Start Date Stop Date Source Heavy Tobacco Smoker [facility] Medications Ordered Medication Name Filled Medication Name Start Date Stop Date Current Medication? Ordering Clinician Indication Dosage Frequency Signature (SIG) Comments Components Source albuterol sulfate 2.5 mg/3 mL (0.083 %) solution for nebulizatio n albuterol sulfate 2.5 mg/3 mL (0.083 %) solution for nebulizatio n No albuterol sulfate 2.5 mg/3 mL (0.083 %) solution for nebulizati on [facility] albuterol sulfate HFA 90 mcg/actuati on aerosol [...] inhalation route as needed, for cough/whee zing. [facility] amlodipine 5 mg tablet Take 1 tablet every day by oral route for 90 days. amlodipine 5 mg tablet Take 1 tablet every day by oral route for 90 days. No 1 Q1D amlodipine 5 mg tablet Take 1 tablet every day by oral route for 90 days. [facility] citalopram 40 mg tablet citalopram 40 mg tablet No citalopram 40 mg tablet [facility] dicyclomine 20 mg tablet Take 1 tablet 4 times a day by oral route as needed, for abdominal cramping. dicyclomine 20 mg tablet Take 1 tablet 4 times a day by oral route as needed, for abdominal cramping. No 1 QID dicyclomin e 20 mg tablet Take 1 tablet 4 times a day by oral route as needed, for abdominal cramping. [facility] mirtazapine 30 mg tablet mirtazapine 30 mg tablet No mirtazapin e 30 mg tablet [facility] omeprazole 40 mg capsule,del ayed release Take 1 capsule every day by oral route for 90 days. omeprazole 40 mg capsule,del ayed release Take 1 capsule every day by oral route for 90 days. No 1capsul e(s) Q1D omeprazole 40 mg capsule,de layed release Take 1 capsule every day by oral route for 90 days. [facility] ondansetron 4 mg disintegrat ing tablet TAKE 1 TABLET BY MOUTH EVERY 6 HOURS NEEDED FOR NAUSEA/VOMI TING ondansetron 4 mg disintegrat ing tablet TAKE 1 TABLET BY MOUTH EVERY 6 HOURS NEEDED FOR NAUSEA/VOMI TING No ondansetro n 4 mg disintegra ting tablet TAKE 1 TABLET BY MOUTH EVERY 6 HOURS NEEDED FOR NAUSEA/VOM ITING [facility] tramadol 50 mg tablet Take 1 tablet every 8 hours by oral route as needed, for pain. tramadol 50 mg tablet Take 1 tablet every 8 hours by oral route as needed, for pain. No 1 Q8H tramadol 50 mg tablet Take 1 tablet every 8 hours by oral route as needed, for pain. [facility] Promethegan 50 mg rectal suppository Promethegan 50 mg rectal suppository No Promethega n 50 mg rectal suppositor y [facility] Vital Signs Vital Name Observation Time Observation Value Comments S ource BMI (Body Mass Index) 2024-08-19 00:00:00 15.6 kg/m2 [facility] BP Diastolic 2024-08-19 00:00:00 92 mm[Hg] [facility] Body Weight 2024-08-19 00:00:00 1232 [oz_av] [facility] Height 2024-08-19 00:00:00 59 [in_i] [facility] BP Systolic 2024-08-19 00:00:00 130 mm[Hg] [facility] BP Systolic 2024-07-15 00:00:00 142 mm[Hg] [facility] BP Diastolic 2024-07-15 00:00:00 92 mm[Hg] [facility] Height 2024-07-15 00:00:00 59 [in_i] [facility] Body Weight 2024-07-15 00:00:00 1296 [oz_av] [facility] BMI (Body Mass Index) 2024-07-15 00:00:00 16.4 kg/m2 [facility] Recent Weight Loss/Gain 2021-03-24 13:27:29 Y\S\10 lbs 02 Sat by Pulse Oximetry 2021-03-24 13:27:29 100 /min Body Mass Index 2021-03-24 13:27:29 16.0 Height 2021-03-24 13:27:29 152.4\S\60 Pulse Rate 2021-03-24 13:27:29 99 /min Respiratory Rate 2021-03-24 13:27:29 18 /min Temperature 2021-03-24 13:27:29 36.6\S\97.9 Weight 2021-03-24 13:27:29 52693.574\S\1312 Recent Weight Loss/Gain 2021-03-24 13:14:43 Y\S\10 lbs 02 Sat by Pulse Oximetry 2021-03-24 13:14:43 100 /min Body Mass Index 2021-03-24 13:14:43 16.0 Height 2021-03-24 13:14:43 152.4\S\60 Pulse Rate 2021-03-24 13:14:43 99 /min Respiratory Rate 2021-03-24 13:14:43 18 /min Temperature 2021-03-24 13:14:43 36.6\S\97.9 Weight 2021-03-24 13:14:43 57307.574\S\1312 Recent Weight Loss/Gain 2021-03-24 13:14:12 Y\S\10 lbs 02 Sat by Pulse Oximetry 2021-03-24 13:14:12 100 /min Body Mass Index 2021-03-24 13:14:12 16.0 Height 2021-03-24 13:14:12 152.4\S\60 Pulse Rate 2021-03-24 13:14:12 99 /min Respiratory Rate 2021-03-24 13:14:12 18 /min Temperature 2021-03-24 13:14:12 36.6\S\97.9 Weight 2021-03-24 13:14:12 11768.574\S\1312 Recent Weight Loss/Gain 2021-03-24 13:13:41 Y\S\10 lbs 02 Sat by Pulse Oximetry 2021-03-24 13:13:41 100 /min Body Mass Index 2021-03-24 13:13:41 16.0 Height 2021-03-24 13:13:41 152.4\S\60 Pulse Rate 2021-03-24 13:13:41 99 /min Respiratory Rate 2021-03-24 13:13:41 18 /min Temperature 2021-03-24 13:13:41 36.6\S\97.9 Weight 2021-03-24 13:13:41 98530.574\S\1312 02 Sat by Pulse Oximetry 2021-03-24 11:42:43 100 /min Body Mass Index 2021-03-24 11:42:43 16.0 Height 2021-03-24 11:42:43 152.4\S\60 Pulse Rate 2021-03-24 11:42:43 99 /min Respiratory Rate 2021-03-24 11:42:43 18 /min Temperature 2021-03-24 11:42:43 36.6\S\97.9 Weight 2021-03-24 11:42:43 96265.574\S\1312 02 Sat by Pulse Oximetry 2021-03-24 11:21:44 100 /min Body Mass Index 2021-03-24 11:21:44 16.0 Height 2021-03-24 11:21:44 152.4\S\60 Pulse Rate 2021-03-24 11:21:44 92 /min Respiratory Rate 2021-03-24 11:21:44 18 /min Temperature 2021-03-24 11:21:44 36.7\S\98.1 Weight 2021-03-24 11:21:44 76692.574\S\1312 02 Sat by Pulse Oximetry 2021-03-24 07:01:45 100 /min Body Mass Index 2021-03-24 07:01:45 16.0 Height 2021-03-24 07:01:45 152.4\S\60 Pulse Rate 2021-03-24 07:01:45 92 /min Respiratory Rate 2021-03-24 07:01:45 18 /min Temperature 2021-03-24 07:01:45 36.7\S\98.1 Weight 2021-03-24 07:01:45 98150.574\S\1312 02 Sat by Pulse Oximetry 2021-03-24 06:49:24 100 /min Body Mass Index 2021-03-24 06:49:24 16.0 Height 2021-03-24 06:49:24 152.4\S\60 Pulse Rate 2021-03-24 06:49:24 92 /min Respiratory Rate 2021-03-24 06:49:24 18 /min Temperature 2021-03-24 06:49:24 36.7\S\98.1 Weight 2021-03-24 06:49:24 41385.574\S\1312 02 Sat by Pulse Oximetry 2021-03-24 06:44:49 100 /min Body Mass Index 2021-03-24 06:44:49 16.0 Height 2021-03-24 06:44:49 152.4\S\60 Pulse Rate 2021-03-24 06:44:49 92 /min Respiratory Rate 2021-03-24 06:44:49 18 /min Temperature 2021-03-24 06:44:49 36.7\S\98.1 Weight 2021-03-24 06:44:49 17506.574\S\1312 02 Sat by Pulse Oximetry 2021-03-24 06:41:45 100 /min Body Mass Index 2021-03-24 06:41:45 16.0 Height 2021-03-24 06:41:45 152.4\S\60 Pulse Rate 2021-03-24 06:41:45 92 /min Respiratory Rate 2021-03-24 06:41:45 18 /min Temperature 2021-03-24 06:41:45 36.7\S\98.1 Weight 2021-03-24 06:41:45 93163.574\S\1312 02 Sat by Pulse Oximetry 2021-03-24 06:14:34 100 /min Body Mass Index 2021-03-24 06:14:34 16.0 Height 2021-03-24 06:14:34 152.4\S\60 Pulse Rate 2021-03-24 06:14:34 92 /min Respiratory Rate 2021-03-24 06:14:34 18 /min Temperature 2021-03-24 06:14:34 36.7\S\98.1 Weight 2021-03-24 06:14:34 99121.574\S\1312 02 Sat by Pulse Oximetry 2021-03-24 06:13:02 100 /min Body Mass Index 2021-03-24 06:13:02 16.0 Height 2021-03-24 06:13:02 152.4\S\60 Pulse Rate 2021-03-24 06:13:02 92 /min Respiratory Rate 2021-03-24 06:13:02 18 /min Temperature 2021-03-24 06:13:02 36.7\S\98.1 Weight 2021-03-24 06:13:02 51319.574\S\1312 WEIGHT 2021-03-24 06:07:00 37.339753 kg HEIGHT 2021-03-24 06:07:00 152.4 cm Encounters Start Date/Time End Date/Time Encounter Type Admission Type Attending Clinicians Care Facility Care Department Encounter ID Source 2021-03-24 05:56:00 Inpatient [facility] [id number] [address] [facility] 2024-08-19 00:00:00 2024-08-19 00:00:00 Grace GoncalvespreetgaldinoERNIE-PLUSH FINISHER-B C: [address] [place] [address] , Ph. [facility] [address] [facility] 2024-07-15 00:00:00 2024-07-15 00:00:00 Grace GoncalvespreetgaldinoERNIE-PLUSH FINISHER-B C: [address] [place] [address] , Ph. [facility] 0905 [facility] 2022-06-07 00:00:00 2022-06-07 00:00:00 Outpatient Walker_Heat her [facility] [id number] [facility] 2022-04-25 03:47:00 2022-04-25 03:47:00 Outpatient Walker_Heat her [facility] [id number] [facility] 2021-03-24 05:56:00 2021-03-24 05:56:00 Emergency [facility] [id number] [address] [facility] Results Test Description Test Time Test Comments Results Result Co mments Source COVID-19 Status: AsymptomaticComprehensive Metabolic [id number] 06:44:00* Test Item Value Reference Range Interpretation [...] = ALP) 80 U/L 46-116 N Ethanol [id number] 06:44:00* Test Item Value Reference Range Interpretation Comme nts Ethanol (test code = ETOH) 8 mg/dL Complete Blood Count Auto [id number] 06:44:00* Test Item Value Reference Range Interpretation [...] Pct (test code = NRBCP) 0 % Drug Screen,[id number] 06:39:00* Test Item Value Reference Range Interpretation [...] ( test code = UPROP) Negative Negative UA, Urinalysis w [id number] 06:39:00* Test Item Value Reference Range Interpretation Comme nts Color,Urine (test code = UCOL) Yellow Yellow Clarity,Urine (test code = UCLAR) Clear Clear Ph, Urine (test code = UPH) 6.0 5.0-8.0 N Specific [place],Urine (test code = USG) 1.005 1.005-1.030 N [...]
[2024-09-17] MEDS ORDERED: ONDANSETRON 4 MG/2 ML VIAL ONE (23:17)
[2024-09-17] MEDS ORDERED: PANTOPRAZOLE 40 MG INJ ONE (23:18)
[2024-09-17 23:20] LABS: Absolute Basophils 0.1 K/uL (0-0.5); Absolute Lymphocytes (CBC) 1.8 K/uL (0.7-4.9); Absolute Monocytes 0.9 K/uL (0.1-1.3); Absolute Neutrophil 13.4 K/uL (1.8-8.0); Basophils % 0.3 % (0-1.3); Eosinophils % 0.1 % (0-4.4); Hematocrit 33.6 % (36.0-45.0); Hemoglobin 11.5 g/dL (12.0-15.0); MCH 33.2 pg (27.0-35.0); MCHC 34.2 g/dL (32.0-36.0); MCV 96.9 fL (80-100); MPV 6.6 fL (7.6-11.3); Monocytes % 5.4 % (3.3-12.3); Neutrophils % 83.2 % (41.7-73.7); Platelets 522 thou/uL (152-406); RBC Red Blood Cell Count 3.46 M/uL (3.86-4.86); Red Cell Distribution Width 16.3 % (12.1-15.2)
[2024-09-17 23:26] LABS: PT Prothrombin Time 12.7 SECONDS (9.4-12.5); PTT, Activated Partial Thromb 31.3 SECONDS (24.3-36.9); Protime INR 1.14
[2024-09-17 23:41] LABS: Albumin 3.2 g/dL (3.4-5.0); Albumin/Globulin Ratio 0.8 (1.1-1.8); Bilirubin Direct 0.2 mg/dL (0-0.2); Bilirubin Indirect, Calculated 0.5 mg/dL (0.2-0.8); Bilirubin Total 0.7 mg/dL (0.2-1.0); Magnesium 2.3 mg/dL (1.6-2.4); Protein, Total 7.2 g/dL (6.4-8.2); Troponin High Sensitivity 11.6 pg/mL (<58.9)
--- NOTE | 2024-09-17 23:59 | RAD REPORT ---
CLINICAL HISTORY: Vomiting. COMPARISON: None. TECHNIQUE: XR CHEST 1 VIEW 09/17/2024 10:58 PM [facility] ST[facility]ER FINDINGS: Cardiac silhouette is normal in size. Lungs are clear without consolidation, atelectasis, mass or ugo ma. There is no pleural effusion. There is no pneumothorax. There are no acute osseous findings. IMPRESSION: Clear lungs. Electronically signed by: Diallo Dowd MD 09/17/2024 11:54 PM [facility] ST[facility]ER RP Due to temporary technical issues with the PACS/[employer] reporting system, reports are being bishnu d by the in-house radiologist without review as a courtesy to ensure prompt reporting the interpreting radiologist is fully responsible for the content of the report. Transcribed Date/Time: 09/17/2024 11:59 PM
--- NOTE | 2024-09-18 01:32 | ER ---
Nurse's Notes [facility] Name: Sue Haley Age: 54 yrs Sex: Female : 1970 Arrival Date: 09/17/2024 Time: 22:28 Bed 5 Private MD: Diagnosis: Anemia, unspecified;GI Bleed/ Gastrointestinal hemorrhage, unspecified Presentation: 09/17 22:37 Chief complaint: Patient states: nausea and vomiting red secretions. ha1 22:37 Coronavirus screen: Vaccine status: Patient reports being unvaccinated. Ebola Screen: ha1 No symptoms or risks identified at this time. Initial Sepsis Screen: Does the patient meet any 2 criteria? No. Patient's initial sepsis screen is negative. Does the patient have a suspected source of infection? No. Patient's initial sepsis screen is negative. Risk Assessment: Do you want to hurt yourself or someone else? Patient reports no desire to harm self or others. Onset of symptoms was September 10, 2024. 22:37 Method Of Arrival: Wheelchair ha1 22:37 Acuity: ELSY 3 ha1 Triage Assessment: 22:37 General: Appears uncomfortable, Behavior is calm, cooperative. Pain: Complains of pain ha1 in epigastric area Pain does not radiate. Pain currently is 5 out of 10 on a pain scale. Quality of pain is described as burning. Neuro: Level of Consciousness is awake, alert, obeys commands, Oriented to person, place, time, situation. Cardiovascular: Patient's skin is warm and dry. Respiratory: Airway is patent Trachea midline Respiratory effort is even, unlabored, Respiratory pattern is regular, symmetrical. GI: Abdomen is flat, non-distended, Bowel sounds present X 4 quads. Reports epigastric pain, nausea, vomiting. : No signs and/or symptoms were reported regarding the genitourinary system. Derm: Skin is pale. Musculoskeletal: Circulation, motion, and sensation intact. Range of motion: intact in all extremities. Historical: - Allergies: 23:00 No Known Allergies; ha1 - Home Meds: 23:00 Celexa 40 mg Oral tab for Anxiety with Depression [Active]; mirtazapine 15 mg Oral ha1 tablet 1 tab every day at bedtime [Active]; omeprazole 20 mg Oral cpDR 1 cap once daily [Active]; - PMHx: 23:00 Depression; Gastroesophageal reflux disease; PTSD; TIA; ha1 - PSHx: 23:00 perforated ulcer; ha1 - Immunization history:: Adult Immunizations up to date. - Infectious Disease History:: Denies. - Social history:: Smoking status: Patient reports the use of cigarette tobacco products, smokes one-half pack cigarettes per day. Screenin:02 [facility] [place] ED Fall Risk Assessment (Adult) History of falling in the last 3 months, ha1 including since admission No falls in past 3 months (0 pts) Confusion or Disorientation No (0 pts) Intoxicated or Sedated No (0 pts) Impaired Gait No (0 pts) Mobility Assist Device Used Yes (1 pt) Altered Elimination No (0 pt) Score/Fall Risk Level 3 or more points = High Risk Oriented to surroundings, Maintained a safe environment, Educated pt \T\ family on fall prevention, incl call for assistance when getting out of bed, Hourly rounding (assess needs \T\ fall precautionary measures) done. Abuse screen: Denies threats or abuse. Denies injuries from another. Nutritional screening: Had unintentional weight loss of 10 pounds or more. Tuberculosis screening: No symptoms or risk factors identified. Assessment: 09/18 00:45 Reassessment: Patient and/or family updated on plan of care and expected duration. Pain ha1 level reassessed. Patient is alert, oriented x 3, equal unlabored respirations, skin warm/dry/pink. 02:30 Reassessment: Patient and/or family updated on plan of care and expected duration. Pain ha1 level reassessed. Patient is alert, oriented x 3, equal unlabored respirations, skin warm/dry/pink. 02:55 Reassessment: nurse to nurse report given to MORRO Wilson. ha1 03:50 Reassessment: Patient and/or family updated on plan of care and expected duration. Pain ha1 level reassessed. Patient is alert, oriented x 3, equal unlabored respirations, skin warm/dry/pink. 04:25 Reassessment: Patient and/or family updated on plan of care and expected duration. Pain ha1 level reassessed. Patient is alert, oriented x 3, equal unlabored respirations, skin warm/dry/pink. BLOOD TRANSFUSION CONTINUE UPON TRANSFER. Vital Signs: 09/17 22:37 BP 96 / 76; Pulse 124; Resp 17 S; Temp 97(T); Pulse Ox 99% on R/A; Weight 34.02 kg; ha1 Height 4 ft. 11 in. ; 09/18 01:29 BP 111 / 80; Pulse 124; Resp 17 S; Pulse Ox 99% on R/A; ha1 02:11 BP 122 / 85; Pulse 100; Resp 17 S; Pulse Ox 99% on R/A; ha1 03:40 BP 111 / 78; Pulse 98; Resp 17 S; Pulse Ox 99% on R/A; ha1 04:25 BP 121 / 77; Pulse 100; Resp 17 S; Pulse Ox 99% on R/A; ha1 09/17 22:37 Body Mass Index 15.15 (34.02 kg, 149.86 cm) [facility] ED Course: 09/17 22:31 Patient arrived in ED. [id number] 22:31 Christian Mckeon PA is PHCP. cp 22:31 Johann Loco MD is Attending Physician. cp 22:37 Patient has correct armband on for positive identification. Placed in gown. Bed in low ha1 position. Call light in reach. Side rails up X2. Adult w/ patient. 22:37 Provided Education on: plan of care . ha1 22:37 Arm band placed on right wrist. ha1 22:50 Inserted saline lock: 22 gauge in right antecubital area, using aseptic technique. 1 Blood collected. 23:00 Triage completed. ha1 23:04 Basic Metabolic Panel Sent. ha1 23:04 CBC with Diff Sent. ha1 23:04 LFT's Sent. ha1 23:04 Magnesium Sent. ha1 23:04 PT-INR Sent. ha1 23:04 Troponin HS Sent. ha1 23:04 Lipase Sent. ha1 23:04 Ptt, Activated Sent. ha1 23:23 Troponin HS Sent. vk 23:23 PT-INR Sent. vk 23:23 Magnesium Sent. vk 23:23 LFT's Sent. vk 23:23 CBC with Diff Sent. vk 23:23 Basic Metabolic Panel Sent. vk 23:23 Lipase Sent. vk 23:23 Ptt, Activated Sent. vk 23:24 EKG done, by ED staff. vk 23:28 XRAY Chest (1 view) In Process Unspecified. EDMS 09/18 00:46 CT Abd/Pelvis - IV Contrast Only In Process Unspecified. EDMS 02:37 Park Rodriguez, RN is Primary Nurse. ha1 03:33 Inserted saline lock: 22 gauge in right forearm, using aseptic technique. Flushed with bm8 10 mL NS. 03:46 Johann Loco MD is Attending Physician. ec2 04:25 No provider procedures requiring assistance completed. ha1 04:25 Patient transferred, IV remains in place. ha1 Administered Medications: 09/17 23:20 Drug: Ondansetron IVP 4 mg IVP once; over 2 minutes Route: IVP; Site: right antecubital;ha1 09/18 00:00 Follow up: Response: No adverse reaction; Marked relief of symptoms ha1 09/17 23:22 Drug: Pantoprazole IVP 40 mg IVP once Route: IVP; Site: right antecubital; ha1 09/18 00:00 Follow up: Response: No adverse reaction ha1 01:00 Drug: NS 0.9% IV 1000 ml IV at 1000 ml once; to be given as a bolus over 60 minutes ha1 Route: IV; Rate: 1000 ml; Site: right antecubital; 03:00 Follow up: Response: No adverse reaction ha1 03:20 Follow up: Response: No adverse reaction; COMPLETED INFUSSION 1000 ML ha1 01:32 Drug: fentaNYL (PF) IVP 25 mcg IVP once Route: IVP; Site: left antecubital; ha1 02:00 Follow up: Response: No adverse reaction; Marked relief of symptoms; Pain is decreased; ha1 RASS: Alert and Calm (0) 01:40 Drug: Rocephin IV 1 grams IV at calculated rate once; Given slow IV push per pharmacy ha1 instructions Route: IV; Rate: calculated rate; Site: left antecubital; 02:00 Follow up: Response: No adverse reaction ha1 01:45 Drug: Promethazine IM 25 mg IM once Route: IM; Site: right ventrogluteal; ha1 02:00 Follow up: Response: No adverse reaction; Marked relief of symptoms ha1 02:05 Drug: Pantoprazole IV 8 mg/hr IV at 25 ml/hr continuous; (Standard dilution is 80 mg in ha1 250 mL NS) Route: IV; Rate: 25 ml/hr; Site: left antecubital; 04:00 Follow up: Response: No adverse reaction; INFUSSION CONTINUED UPON TRANSFER ha1 07:11 Follow up: Response: No adverse reaction ha1 03:40 Drug: NS 0.9% IV 1000 ml IV at 1000 ml once; to be given as a bolus over 60 minutes ha1 Route: IV; Rate: 1000 ml; Site: right forearm; 04:30 Follow up: Response: No adverse reaction; IV Status: Completed infusion; IV Intake: ha1 1000ml 04:00 Drug: Potassium Chloride IV 20 mEq IV at calculated rate once; administer over 1-2 ha1 hours Route: IV; Rate: calculated rate; Site: right antecubital; 04:00 Follow up: Response: No adverse reaction; IV Status: Completed infusion; IV Intake: ha1 100ml Medication: 04:25 VIS not applicable for this client. ha1 Intake: 04:00 IV: 100ml; Total: 100ml. ha1 04:30 IV: 1000ml; Total: 1100ml. ha1 Outcome: 01:31 ER care complete, transfer ordered by . ec2 04:25 Transferred by ground EMS to [facility], Transfer form completed. ha1 X-rays sent w/ patient. 04:25 Condition: stable ha1 04:25 Instructed on the need for transfer, Demonstrated understanding of instructions, 04:31 Patient left the ED. ha1 Signatures: Dispatcher [employer] EDMS Christian Mckeon PA PA cp Jeffries, Jennifer [id number] Park Rodriguez, RN RN ha1 Johann Loco MD MD ec2 Ambar Tucker Brad RN RN [id number] Corrections: (The following items were deleted from the chart) 02:18 02:12 Antibody Screen drawn and sent. berhane LINDAWV
--- NOTE | 2024-09-18 01:32 | EDPHYS ---
Physician Documentation [facility] Name: Sue Haley Age: 54 yrs Sex: Female : 1970 Arrival Date: 09/17/2024 Time: 22:28 Bed 5 Private MD: ED Physician Johann Loco HPI: 09/17 23:00 This 54 yrs old Female presents to ER via Wheelchair with complaints of Nausea/Vomiting.cp 23:00 The patient presents to the emergency department with nausea, that is severe, vomiting, cp that is continuous, for past 2 days, abdominal pain, of the epigastric area. Onset: The symptoms/episode began/occurred 1 week(s) ago. Possible causes: pmhx significant for gastritis. Associated signs and symptoms: Pertinent positives: abdominal pain, anorexia, Pertinent negatives: fever. Severity of symptoms: in the emergency department the symptoms are unchanged despite home interventions. The patient has been recently seen at the [facility] Emergency Department, yesterday, for similar complaints labs were performed, CT scan was performed, was given a prescription for an antiemetic. Historical: - Allergies: 23:00 No Known Allergies; ha1 - Home Meds: 23:00 Celexa 40 mg Oral tab for Anxiety with Depression [Active]; mirtazapine 15 mg Oral ha1 tablet 1 tab every day at bedtime [Active]; omeprazole 20 mg Oral cpDR 1 cap once daily [Active]; - PMHx: 23:00 Depression; Gastroesophageal reflux disease; PTSD; TIA; ha1 - PSHx: 23:00 perforated ulcer; ha1 - Immunization history:: Adult Immunizations up to date. - Infectious Disease History:: Denies. - Social history:: Smoking status: Patient reports the use of cigarette tobacco products, smokes one-half pack cigarettes per day. ROS: 23:05 Constitutional: Positive for poor PO intake, Negative for body aches, chills, fever, cp 23:05 Eyes: Negative for injury, pain, redness, and discharge, cp 23:05 Cardiovascular: Negative for chest pain, 23:05 Respiratory: Negative for cough, shortness of breath, wheezing, 23:05 Abdomen/GI: Positive for abdominal pain, nausea and vomiting, Negative for diarrhea, constipation, black/tarry stool, rectal bleeding, 23:05 Neuro: Negative for altered mental status, dizziness, syncope, Exam: 23:10 Constitutional: The patient appears in no acute distress, alert, awake, cp non-diaphoretic, non-toxic, well developed, well nourished, 23:10 Head/Face: Normocephalic, atraumatic. cp 23:10 Eyes: Periorbital structures: appear normal, Conjunctiva: normal, no exudate, no injection, Sclera: no appreciated abnormality, Lids and lashes: appear normal, bilaterally, 23:10 ENT: External ear(s): are unremarkable, Nose: is normal, Mouth: Lips: dry, Oral mucosa: dry, Posterior pharynx: Airway: no evidence of obstruction, patent, 23:10 Chest/axilla: Inspection: normal, 23:10 Cardiovascular: Rate: tachycardic, Rhythm: regular, Edema: is not appreciated, JVD: is not appreciated, 23:10 Respiratory: the patient does not display signs of respiratory distress, Respirations: normal, no use of accessory muscles, no retractions, labored breathing, is not present, Breath sounds: are clear throughout, no decreased breath sounds, no stridor, no wheezing, 23:10 Abdomen/GI: Inspection: abdomen appears normal, Bowel sounds: active, all quadrants, Palpation: soft, in all quadrants, moderate abdominal tenderness, in the epigastric area, right upper quadrant and left upper quadrant, 23:10 Back: pain, is absent, ROM is normal, 23:10 Neuro: Orientation: to person, place \T\ time. Mentation: is normal, 23:27 ECG was reviewed by the Attending Physician. cp Vital Signs: 22:37 BP 96 / 76; Pulse 124; Resp 17 S; Temp 97(T); Pulse Ox 99% on R/A; Weight 34.02 kg; ha1 Height 4 ft. 11 in. ; 09/18 01:29 BP 111 / 80; Pulse 124; Resp 17 S; Pulse Ox 99% on R/A; ha1 02:11 BP 122 / 85; Pulse 100; Resp 17 S; Pulse Ox 99% on R/A; ha1 03:40 BP 111 / 78; Pulse 98; Resp 17 S; Pulse Ox 99% on R/A; ha1 04:25 BP 121 / 77; Pulse 100; Resp 17 S; Pulse Ox 99% on R/A; ha1 09/17 22:37 Body Mass Index 15.15 (34.02 kg, 149.86 cm) ha1 MDM: 09/17 22:37 Medical Screening Exam initiated cp 11 01:06 Data reviewed: vital signs. ec2 01:06 ED course: Patient signed out to me with pending CT abdomen pelvis. Lab work shows ec2 slight hypokalemia 3.0, leukocytosis 16. LFTs are nonactionable. Plans to follow-up CT abdomen pelvis and likely transfer given hematemesis and concern for GI bleed. History of ulcers.. 01:28 ED course: CT abdomen pelvis shows mucosal thickening, likely gastritis. Given that the ec2 patient is having hematemesis that we witnessed here in the emergency department, I will transfer the patient for GI evaluation. Patient already on Protonix drip.. 02:19 ED course: Discussed case with ict support technicians at [facility] except patient ec2 for transfer. Will transfer for ICU capability as well as GI capabilities. Patient updated with plan of care and agreeable.. 02:55 ED course: Sepsis reassessment complete.. ec2 09/18 01:30 Order name: Type And Screen ec2 09/17 22:58 Order name: Basic Metabolic Panel; Complete Time: 23:58 cp 09/17 23:58 Interpretation: Normal except: K 3.0; CO2 36; GLUC 197; BUN 26; GFR 73. cp 09/17 22:58 Order name: CBC with Diff; Complete Time: 23:58 cp 09/17 23:59 Interpretation: Normal except: WBC 16.00; RBC 3.46; HGB 11.5; HCT 33.6; PLT 522; RDW cp 16.3; MPV 6.6; JALEN% 83.2; LYM% 11.0; NEUT A 13.4. 09/17 22:58 Order name: LFT's; Complete Time: 23:58 cp 09/17 22:58 Order name: Magnesium; Complete Time: 23:58 cp 09/17 22:58 Order name: PT-INR; Complete Time: 23:58 cp 09/17 22:58 Order name: Troponin HS; Complete Time: 23:58 cp 09/17 22:58 Order name: Ptt, Activated; Complete Time: 23:58 cp 09/17 22:58 Order name: Lipase; Complete Time: 23:58 09/18 00:03 Order name: Lactate w/ 2H reflex if indic.; Complete Time: 01:35 09/18 00:03 Order name: Blood Culture Adult (2) 09/18 02:19 Order name: Packed RBC Leukored EDOH 09/18 03:32 Order name: Ghost Lactate-NO COLLECT Timer; Complete Time: 03:46 EDOH 09/17 22:58 Order name: XRAY Chest (1 view) 09/18 00:05 Interpretation: Report review. 09/18 00:03 Order name: CT Abd/Pelvis - IV Contrast Only 09/17 22:58 Order name: EKG; Complete Time: 22:59 09/17 22:58 Order name: Cardiac monitoring; Complete Time: 23:23 09/17 22:58 Order name: EKG - Nurse/Tech; Complete Time: 23:23 09/17 22:58 Order name: IV Saline Lock; Complete Time: 23:03 09/17 22:58 Order name: Labs collected and sent; Complete Time: 23:03 09/17 22:58 Order name: O2 Per Protocol; Complete Time: 23:04 09/17 22:58 Order name: O2 Sat Monitoring; Complete Time: 23:04 09/18 01:30 Order name: Consent for Blood Transfusion; Complete Time: 04:03 ec2 EC/08 23:27 Rate is 118 beats/min. Rhythm is regular. NM interval is normal. QRS interval is cp normal. QT interval is normal. Interpreted by me. Reviewed by me. Administered Medications: 23:20 Drug: Ondansetron IVP 4 mg IVP once; over 2 minutes Route: IVP; Site: right antecubital;1 09/18 00:00 Follow up: Response: No adverse reaction; Marked relief of symptoms [facility] 09/17 23:22 Drug: Pantoprazole IVP 40 mg IVP once Route: IVP; Site: right antecubital; ha1 09/18 00:00 Follow up: Response: No adverse reaction 1 01:00 Drug: NS 0.9% IV 1000 ml IV at 1000 ml once; to be given as a bolus over 60 minutes [facility] Route: IV; Rate: 1000 ml; Site: right antecubital; 03:00 Follow up: Response: No adverse reaction ha1 03:20 Follow up: Response: No adverse reaction; COMPLETED INFUSSION 1000 ML ha1 01:32 Drug: fentaNYL (PF) IVP 25 mcg IVP once Route: IVP; Site: left antecubital; ha1 02:00 Follow up: Response: No adverse reaction; Marked relief of symptoms; Pain is decreased; ha1 RASS: Alert and Calm (0) 01:40 Drug: Rocephin IV 1 grams IV at calculated rate once; Given slow IV push per pharmacy ha1 instructions Route: IV; Rate: calculated rate; Site: left antecubital; 02:00 Follow up: Response: No adverse reaction ha1 01:45 Drug: Promethazine IM 25 mg IM once Route: IM; Site: right ventrogluteal; ha1 02:00 Follow up: Response: No adverse reaction; Marked relief of symptoms ha1 02:05 Drug: Pantoprazole IV 8 mg/hr IV at 25 ml/hr continuous; (Standard dilution is 80 mg in ha1 250 mL NS) Route: IV; Rate: 25 ml/hr; Site: left antecubital; 04:00 Follow up: Response: No adverse reaction; INFUSSION CONTINUED UPON TRANSFER ha1 07:11 Follow up: Response: No adverse reaction ha1 03:40 Drug: NS 0.9% IV 1000 ml IV at 1000 ml once; to be given as a bolus over 60 minutes ha1 Route: IV; Rate: 1000 ml; Site: right forearm; 04:30 Follow up: Response: No adverse reaction; IV Status: Completed infusion; IV Intake: ha1 1000ml 04:00 Drug: Potassium Chloride IV 20 mEq IV at calculated rate once; administer over 1-2 ha1 hours Route: IV; Rate: calculated rate; Site: right antecubital; 04:00 Follow up: Response: No adverse reaction; IV Status: Completed infusion; IV Intake: ha1 100ml Disposition: 01:31 I reviewed the patient's care provided by Advanced Practice Provider \T\ agree w/ the ec2 diagnosis \T\ care plan. I personally saw the pt \T\ performed a substantive portion of the visit, incldng all aspects of the (History/Exam/Medical Decision Making). Disposition Summary: 09/18/24 01:31 Transfer Ordered Notes: Transfer Location: Other Acute Care Facility ec2 Reason: Higher level of care ec2 Condition: Stable ec2 Problem: new ec2 Symptoms: are unchanged ec2 Accepting Physician: brittany mae(09/18/24 04:31) ha1 Diagnosis - Anemia, unspecified ec2 - GI Bleed/ Gastrointestinal hemorrhage, unspecified ec2 Forms: - Medication Reconciliation Form ec2 - SBAR form ec2 Critical care time excluding procedures: 01:35 Critical care time: Bedside Care: 30 minutes, Consultation: 5 minutes, Family ec2 Intervention: 5 minutes. Total time: 40 minutes Signatures: Dispatcher [employer] EDMS Christian Mckeon PA PA cp Ayala, Heidy, RN RN ha1 Johann Loco MD MD ec2 Corrections: (The following items were deleted from the chart) 01:35 01:31 transferring doc ec2 ec2 02:18 01:31 PACKED RBC LEUKORED+BB.LAB.BRZ ordered. EDMS EDMS 02:18 01:33 ABO/RH typing ordered. EDMS EDMS 02:18 01:33 Antibody Screen ordered. EDMS EDMS 04:31 01:35 transferring doc ec2 ha1
[2024-09-18] MEDS ORDERED: FENTANYL CITR 100 MCG/2 ML ONE (01:33)
[2024-09-18] MEDS ORDERED: PANTOPRAZOLE 40 MG INJ ONE (01:35)
[2024-09-18] MEDS ORDERED: CEFTRIAXONE 1000 MG/VIAL ONE (01:35)
[2024-09-18] MEDS ORDERED: NA CHLORIDE 0.9% 1,000 ML ONE ×2 (01:36→03:16)
[2024-09-18] MEDS ORDERED: PROMETHAZINE INJ 25 MG/ML AMP ONE (01:36)
[2024-09-18] MEDS ORDERED: NA CHLORIDE 0.9% 250 ML ONE ×2 (01:36→03:16)
[2024-09-18] MEDS ORDERED: KCL 20 MEQ/100 mL IVPB 100 ML IV ONE (02:03)
--- NOTE | 2024-09-18 02:41 | RAD REPORT ---
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 COMPARISON: CT Abdomen Pelvis 09/16/2024. PROCEDURE: Contrast-enhanced images of the abdomen and pelvis were performed from the lung bases to the ischial tuberosities after the administration of IV contrast. In addition multiplanar reformats in the coronal and sagittal plane were obtained and reviewed. An individualized dose optimization technique, Automated Exposure Control, was utilized for the perfo rmed procedure. FINDINGS: Lung bases: The lung bases hyperinflation/centrilobular emphysematous changes. Liver: The liver demonstrated presence of decreased attenuation corresponding to mild fatty infiltrat ion. Gallbladder: The gallbladder demonstrate to be normal. Adrenal glands: The adrenal glands demonstrate to be normal. Pancreas: The pancreas demonstrated to be somewhat decreased in size. Spleen: The spleen demonstrate to be within normal limits. Kidneys: The kidneys demonstrate normal uptake of contrast media. There is 3.7 mm lower pole calcul us on image 24. There is a lower pole left renal cyst measuring 1.7 cm in image 26 GI: Grossly the stomach demonstrate to be fluid-filled distended. There is abnormal mucosal thickenin g and enhancement of the antrum pyloric region of the stomach suggesting the possibility of gastritis/peptic ulcer disease. The unopacified stomach small bowel and large bowel demonstrate to be within normal limits. No evidence for bowel dilatation and/or free air. The appendix was partially visualized with no gross abnormalities. The left-sided colon demonstrate to be decompressed with no g ross abnormalities. : The urinary bladder demonstrate to be unremarkable. Genitalia: The uterus demonstrate to be within normal limits. There are normal adnexal structures. Abdominal aorta: The aorta demonstrated presence of minimal atherosclerotic disease extending into th e aortic bifurcation and iliac arteries. Retroperitoneum: There is no retroperitoneal lymphadenopathy. There is no evidence for ascites and/or abnormal fluid collections. Bones: The bony structures demonstrate to be within normal limits. No evidence for compression deform ity and/or significant skeletal lesions. Soft tissues: The soft tissues demonstrate to be unremarkable. IMPRESSION: Abnormal mucosal thickening and enhancement of the antrum pyloric region of the stomach suggesting th e possibility of gastritis/peptic ulcer disease. No definitive evidence for perforation and/or ulceration. Mild fatty infiltration of the liver. 3.7 mm nonobstructing lower pole right renal calculus. Lytic the Left Bosniak I benign renal cyst measuring 1.7 cm. No follow-up imaging is recommended. SALMA 2018 Dec; 264-273, Management of the Incidental Renal Mass on CT, Radiographics 2020; 814-848, Yuri sniak Classification of Cystic Renal Masses, Version 2019. Electronically signed by: Db Ochoa MD 09/18/2024 01:[address] [facility] Due to temporary technical issues with the PACS/[employer] reporting system, reports are being bishnu d by the in-house radiologist without review as a courtesy to ensure prompt reporting the interpreting radiologist is fully responsible for the content of the report. Transcribed Date/Time: 09/18/2024 2:41 AM
[2024-09-18 04:41] VITALS: TEMP 97; O2SAT 99
[2024-09-18 04:52] VITALS: BP 122/85
--- NOTE | 2024-09-19 12:42 | EKG ---
Test Date: 2024-09-17 Test Time: 23:20:24 Business Analysis Consultant: IMANI MEASUREMENT RESULTS: Intervals: Rate: 118 MI: 114 QRSD: 98 QT: 332 QTc: 465 Hollister: P: 85 MI: 114 QRS: 83 T: 52 INTERPRETIVE STATEMENTS: Sinus tachycardia Biatrial enlargement Marked ST abnormality, possible inferior subendocardial injury Abnormal ECG Compared to ECG 04/23/2016 19:10:36 ST (T wave) deviation now present Sinus rhythm no longer present Electronically Signed On 09-19-24 12:39:19 HOG SCALDER by Jaya Rodgers
== END 2024-09-18 04:31 ==
LOC: ER 22:28
PROC: 30233N1 Transfusion of Nonautologous Red Blood Cells into Peripheral Vein, Percutaneous Approach (ICD-10-PCS; principal; 2024-09-18)
DX: D64.9 Anemia, unspecified (principal); F17.210 Nicotine dependence, cigarettes, uncomplicated
CPT/HCPCS: 93005; 87040 ×2; 85025; 80048; 36415; 86900; 83735; 86850; 85610; 86901; 80076; 83605; 85730; 86920; 84484; 83690; 74177; 71045; 96372; 99285; 36430; Q9967; J2550; J3480; J2470 ×2; J3010; J2405; P9016; J7050 ×2; J7030 ×2; J0696

== ENCOUNTER 2024-12-14 12:46 | Emergency (ER) | payer BC ==
[2024-12-14] MEDS ORDERED: DIPHENHYDRAMINE 25 MG TAB/CAP ONE (13:00)
[2024-12-14] MEDS ORDERED: ACETAMINOPHEN 500 MG TAB ONE (13:24)
--- NOTE | 2024-12-14 13:43 | ER ---
Nurse's Notes [facility] Name: Sue Haley Age: 54 yrs Sex: Female : 1970 Arrival Date: 12/14/2024 Time: 12:46 Bed DIS2 Private MD: Diagnosis: Generalized anxiety disorder Presentation: 12/14 12:50 Chief complaint: Patient states: Anxiety and scared, weaning off Valium. Coronavirus ll1 screen: Client denies travel out of the [place] in the last 14 days. At this time, the client does not indicate any symptoms associated with coronavirus-19. Ebola Screen: Patient denies travel to an Ebola-affected area in the 21 days before illness onset. 12:50 Method Of Arrival: EMS ll1 13:49 Initial Sepsis Screen: Does the patient meet any 2 criteria? No. Patient's initial ll1 sepsis screen is negative. Does the patient have a suspected source of infection? No. Patient's initial sepsis screen is negative. Risk Assessment: Do you want to hurt yourself or someone else? Patient reports no desire to harm self or others. Onset of symptoms was December 14, 2024. 13:49 Acuity: ELSY 4 ll1 Triage Assessment: 13:50 General: Appears in no apparent distress. Behavior is calm, cooperative, appropriate ll1 for age. Pain: Denies pain. 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 - Infectious Disease History:: Denies. - Social history:: Smoking status: Patient/guardian denies using tobacco. Screenin:49 Clinical [place] Withdrawal Assessment for Alcohol, revised (CIWA-Ar):. [facility] ED ll1 Fall Risk Assessment (Adult) History of falling in the last 3 months, including since admission No falls in past 3 months (0 pts) Confusion or Disorientation No (0 pts) Intoxicated or Sedated No (0 pts) Impaired Gait No (0 pts) Mobility Assist Device Used No (0 pt) Altered Elimination No (0 pt) Score/Fall Risk Level 0 - 2 = Low Risk Maintained a safe environment, Hourly rounding (assess needs \T\ fall precautionary measures) done. Abuse screen: Denies threats or abuse. Nutritional screening: No deficits noted. Tuberculosis screening: No symptoms or risk factors identified. Assessment: 13:27 Reassessment: No changes from previously documented assessment. Patient and/or family ll1 updated on plan of care and expected duration. Pain level reassessed. Patient is alert, oriented x 3, equal unlabored respirations, skin warm/dry/pink. 13:49 Reassessment: No changes from previously documented assessment. Patient and/or family ll1 updated on plan of care and expected duration. Pain level reassessed. Patient is alert, oriented x 3, equal unlabored respirations, skin warm/dry/pink. Patient states feeling better. Vital Signs: 12:50 BP 121 / 81; Pulse 85; Resp 16; Temp 98; Pulse Ox 99% ; Weight 29.94 kg; Pain 0/10; ll1 13:48 BP 123 / 77; Pulse 81; Resp 16; Pulse Ox 99% ; Pain 0/10; ll1 12:50 Pain Scale: Adult ll1 13:48 Pain Scale: Adult ll1 ED Course: 12:50 Patient arrived in ED. ll1 12:50 Patient has correct armband on for positive identification. Provided Education on: Er ll1 procedures and process. 12:52 Pieter Adames DO is Attending Physician. ms3 12:58 Arm band placed on Patient placed in a hallway bed, in a wheelchair. ll1 13:04 Shantell Manley RN is Primary Nurse. ll1 13:42 Duncan Marcial DO is Referral Physician. ms3 13:42 Jerrell Mcdaniel MD is Referral Physician. ms3 13:50 Triage completed. ll1 13:50 No provider procedures requiring assistance completed. Patient did not have IV access ll1 during this emergency room visit. Administered Medications: 13:04 Drug: diphenhydrAMINE PO 50 mg PO once Route: PO; ll1 13:49 Follow up: Response: No adverse reaction; Anxiety decreased; RASS: Alert and Calm (0) ll1 13:25 Drug: Acetaminophen PO 1000 mg PO once Route: PO; ll1 13:49 Follow up: Response: No adverse reaction; Pain is decreased ll1 Medication: 13:51 VIS not applicable for this client. ll1 Outcome: 13:42 Discharge ordered by MD. ms3 13:50 Discharged to home ambulatory, ll1 13:50 Condition: stable 13:50 Discharge instructions given to patient, Instructed on discharge instructions, follow up and referral plans. medication usage, Demonstrated understanding of instructions, follow-up care, medications, Prescriptions given X 1, 13:51 Patient left the ED. ll1 Signatures: Shantell Manley RN RN ll1 Pieter Adames, DO ms3
--- NOTE | 2024-12-14 13:43 | EDPHYS ---
Physician Documentation [facility] Name: Sue Haley Age: 54 yrs Sex: Female : 1970 Arrival Date: 12/14/2024 Time: 12:46 Bed DIS2 Private MD: ED Physician Pieter Adames HPI: 12/14 13:43 This 54 yrs old Female presents to ER via EMS with complaints of Anxiety. ms3 13:43 54 year old female with a past medical history of gastric ulcers and significant ms3 anxiety presents via [facility] for anxiety. She was previously on Valium, and her dosage is being tapered. She reports severe anxiety and a feeling of having a "mental break" since Friday. She describes an incident on Friday where she does not recall events and was admitted to [facility] in [place] until Friday night. After discharge, she was instructed to taper her Valium intake gradually, but she missed two doses yesterday. She took 5 mg of Valium at 9:30 this morning, which is her last dose. Her anxiety was severe this morning. She has not experienced chest pain but is very concerned about various situations, including her 's well-being.. 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 - Infectious Disease History:: Denies. - Social history:: Smoking status: Patient/guardian denies using tobacco. ROS: 13:43 Constitutional: Negative for fever, and chills. Cardiovascular: Negative for chest ms3 pain, and palpitations. Respiratory: Negative for shortness of breath, cough, wheezing, and pleuritic chest pain, Abdomen/GI: Negative for abdominal pain, nausea, vomiting, diarrhea, and constipation, MS/Extremity: Negative for injury and deformity, 13:43 Psych: Positive for anxiety, Exam: 13:43 Constitutional: This is a well developed, well nourished patient who is awake, alert, ms3 and in no acute distress. Cardiovascular: Regular rate and rhythm with a normal S1 and S2. No gallops, murmurs, or rubs. Normal PMI, no JVD. No pulse deficits. Respiratory: Lungs have equal breath sounds bilaterally, clear to auscultation and percussion. No rales, rhonchi or wheezes noted. No increased work of breathing, no retractions or nasal flaring. Abdomen/GI: Soft, non-tender, with normal bowel sounds. No distension or tympany. No guarding or rebound. No evidence of tenderness throughout. Skin: Warm, dry with normal turgor. Normal color with no rashes, no lesions, and no evidence of cellulitis. MS/ Extremity: Pulses equal, no cyanosis. Neurovascular intact. Full, normal range of motion. Vital Signs: 12:50 BP 121 / 81; Pulse 85; Resp 16; Temp 98; Pulse Ox 99% ; Weight 29.94 kg; Pain 0/10; ll1 13:48 BP 123 / 77; Pulse 81; Resp 16; Pulse Ox 99% ; Pain 0/10; ll1 12:50 Pain Scale: Adult ll1 13:48 Pain Scale: Adult ll1 MDM: 12:53 Medical Screening Exam initiated ms3 13:43 Differential diagnosis: drug withdrawal. acute psychotic break, anxiety. Data reviewed: ms3 vital signs, nurses notes, and as a result, I will discharge patient. I considered the following discharge prescriptions or medication management in the emergency department Medications were administered in the Emergency Department. See MAR. Counseling: I had a detailed discussion with the patient and/or guardian regarding the historical points, exam findings, and any diagnostic results supporting the discharge/admit diagnosis, the need for outpatient follow up, to return to the emergency department if symptoms worsen or persist or if there are any questions or concerns that arise at home. Special discussion: I discussed with the patient/guardian in detail that at this point there is no indication for admission to the hospital. It is understood, however, that if the symptoms persist or worsen the patient needs to return immediately for re-evaluation. ED course: On reevaluation patient symptoms improved, patient is alert, no apparent distress, nontoxic-appearing, speaking full sentences. Patient given prescription for hydralazine. Patient to follow-up with primary care physician 2 to 3 days. Patient understands and agrees with plan. All questions were answered. Return precautions discussed include worsening symptoms, or any other concerns.. Administered Medications: 13:04 Drug: diphenhydrAMINE PO 50 mg PO once Route: PO; ll1 13:49 Follow up: Response: No adverse reaction; Anxiety decreased; RASS: Alert and Calm (0) ll1 13:25 Drug: Acetaminophen PO 1000 mg PO once Route: PO; ll1 13:49 Follow up: Response: No adverse reaction; Pain is decreased ll1 Disposition Summary: 12/14/24 13:42 Discharge Ordered Notes: Location: Home ms3 Condition: Stable ms3 Diagnosis - Generalized anxiety disorder ms3 Followup: ms3 - With: Duncan Marcial DO - When: 2 - 3 days - Reason: Recheck today's complaints Followup: ms3 - With: Jerrell Mcdaniel MD - When: 2 - 3 days - Reason: Recheck today's complaints Discharge Instructions: - Discharge Summary Sheet ms3 - Generalized Anxiety Disorder, Adult ms3 Forms: - Medication Reconciliation Form ms3 - Antibiotic Education ms3 - Prescription Opioid Use ms3 - Patient Portal Instructions ms3 - Leadership Thank You Letter ms3 Prescriptions: - Hydroxyzine HCl 50 mg Oral Tablet - take 1 tablet ORAL route every 8 hours As needed; 20 tablet; Refills: 0, ms3 Product Selection Permitted Signatures: Shantell Manley RN RN ll1 Pieter Adames DO DO ms3
[2024-12-14 14:02] VITALS: TEMP 98; O2SAT 99
[2024-12-14 14:10] VITALS: BP 123/77
== END 2024-12-14 13:51 | disposition home or self-care (01) ==
LOC: ER 12:46
DX: F41.1 Generalized anxiety disorder (principal)

== ENCOUNTER 2025-02-28 21:48 | Inpatient (IN) | payer BC ==
[2025-02-28] MEDS ORDERED: CEFTRIAXONE 1000 MG/VIAL ONE (22:43)
[2025-02-28] MEDS ORDERED: NA CHLORIDE 0.9% 2,000 ML ONE (22:43)
[2025-02-28 23:23] LABS: Absolute Basophils 0.1 K/uL (0-0.5); Absolute Lymphocytes (CBC) 1.2 K/uL (0.7-4.9); Absolute Monocytes 1.1 K/uL (0.1-1.3); Absolute Neutrophil 12.1 K/uL (1.8-8.0); Basophils % 0.4 % (0-1.3); Eosinophils % 0.1 % (0-4.4); Hematocrit 47.8 % (36.0-45.0); Hemoglobin 15.6 g/dL (12.0-15.0); Lymphocytes % 8.3 % (15.3-44.8); MCH 30.6 pg (27.0-35.0); MCHC 32.6 g/dL (32.0-36.0); MPV 7.4 fL (7.6-11.3); Monocytes % 7.6 % (3.3-12.3); Neutrophils % 83.6 % (41.7-73.7); Nucleated RBC Absolute Count 0.1 (0-0); Nucleated Red Blood Cells % 0.6 % (0-0); Platelets 550 thou/uL (152-406); RBC Red Blood Cell Count 5.09 M/uL (3.86-4.86); Red Cell Distribution Width 16.1 % (12.1-15.2)
[2025-02-28 23:26] LABS: PTT, Activated Partial Thromb 35.4 SECONDS (27.2-37.4); Protime INR 1.06
[2025-02-28 23:28] LABS: Barbiturates NEGATIVE (NEGATIVE); Benzodiazepines NEGATIVE (NEGATIVE); Cocaine NEGATIVE (NEGATIVE); METHAMPHETAM NEGATIVE (NEGATIVE); Methadone NEGATIVE (NEGATIVE); Opiates NEGATIVE (NEGATIVE); Phencyclidine NEGATIVE (NEGATIVE); Specific Gravity 1.021 (1.005-1.030); Sqamous Epithelial None Seen /HPF (None Seen); THC Cannibis POSITIVE (NEGATIVE); Transitional Epithelial <5 /HPF (None Seen); Urine Bacteria None Seen /HPF (<20); Urine Bilirubin NEGATIVE (Negative); Urine Blood 3+ (OVER) (Negative); Urine Clarity Turbid (Clear); Urine Color Light-Yellow (Yellow); Urine Culture Reflex Order NOT NEEDED; Urine Glucose NEGATIVE (Negative); Urine Ketones 2+ (Negative); Urine Microscopic Reflex YN ORDER UMIC; Urine Mucus Slight /HPF (None Seen); Urine Nitrite NEGATIVE (Negative); Urine Protein 1+ (Negative); Urine RBC >50 /HPF (None Seen); Urine Urobilinogen Normal (Normal); Urine WBC <5 /HPF (<5)
[2025-02-28 23:38] LABS: ALT/SGPT 17 U/L (13-56); AST/SGOT 17 U/L (15-37); Albumin 4.6 g/dL (3.4-5.0); Albumin/Globulin Ratio 0.9 (1.1-1.8); Alkaline Phosphatase 83 U/L (45-117); Anion Gap 8.7 mEq/L (5.0-15.0); BUN Blood Urea Nitrogen 40 mg/dL (7-18); Bicarbonate 27 mEq/L (21-32); Bilirubin Direct 0.2 mg/dL (0-0.2); Bilirubin Indirect, Calculated 0.7 mg/dL (0.2-0.8); Bilirubin Total 0.9 mg/dL (0.2-1.0); Globulin 5.4 g/dL (2.3-3.5); Glomerular Filtration Rate 77 ml/min (=/>90); Glucose Level 104 mg/dL (74-106); Potassium 3.7 mEq/L (3.5-5.1); Sodium Level 143 mEq/L (136-145)
[2025-03-01 00:02] LABS: C-Reactive Protein < 2.90 mg/L (<3.00)
--- NOTE | 2025-03-01 01:56 | ER ---
Nurse's Notes [facility] Name: Sue Haley Age: 54 yrs Sex: Female : 1970 Arrival Date: 02/28/2025 Time: 21:48 Bed 3 Private MD: Diagnosis: Toxic encephalopathy;Moderate dehydration, hemoconcentration, altered mental status, acute hypoactive delirium;Cannabis use disorder Presentation: 02/28 22:02 Chief complaint: Spouse and/or significant other states: patient has been unresponsive cp4 and not talking for the last 3 days. States she has also lost a lot of weight. states last time she did this she was withdrawing from xanax. States she has been out of xanax for a week now. Coronavirus screen: Client denies travel out of the [place] in the last 14 days. Client presents with at least one sign or symptom that may indicate coronavirus-19. Ebola Screen: Patient negative for fever greater than or equal to 101.5 degrees Fahrenheit, and additional compatible Ebola Virus Disease symptoms Patient denies exposure to infectious person. Patient denies travel to an Ebola-affected area in the 21 days before illness onset. No symptoms or risks identified at this time. Initial Sepsis Screen: Does the patient meet any 2 criteria? HR > 90 bpm. No. Patient's initial sepsis screen is negative. Does the patient have a suspected source of infection? No. Patient's initial sepsis screen is negative. Risk Assessment: Do you want to hurt yourself or someone else? Unable to obtain. Onset of symptoms was February 25, 2025. 22:02 Method Of Arrival: Wheelchair cp4 22:02 Acuity: ELSY 3 cp4 Triage Assessment: 22:06 General: Appears in no apparent distress. uncomfortable, Behavior is calm, cooperative. cp4 Pain: Denies pain. Neuro:. 22:07 Neuro: Level of Consciousness is awake, alert, Oriented to none. cp4 Historical: - Allergies: 22:06 Codeine; cp4 - PMHx: 22:06 Depression; Gastroesophageal reflux disease; PTSD; TIA; cp4 - PSHx: 22:06 perforated ulcer; cp4 - Immunization history:: Adult Immunizations up to date. - Infectious Disease History:: Denies. - Social history:: Smoking status: Patient denies any tobacco usage or history of. - Family history:: not pertinent. Screenin:39 [facility] ED Fall Risk Assessment (Adult) History of falling in the last 3 months, kd3 including since admission No falls in past 3 months (0 pts) Confusion or Disorientation Yes (5 pts) Intoxicated or Sedated No (0 pts) Impaired Gait Yes (1 pt) Mobility Assist Device Used No (0 pt) Altered Elimination No (0 pt) Score/Fall Risk Level 3 or more points = High Risk Maintained a safe environment. Abuse screen: Denies threats or abuse. Denies injuries from another. Nutritional screening: No deficits noted. Tuberculosis screening: No symptoms or risk factors identified. Assessment: 22:39 General: Appears ill, slender, Behavior is drowsy. Neuro: Level of Consciousness is kd3 lethargic, Oriented to person. Respiratory: Airway is patent Trachea midline Respiratory effort is even, unlabored, Respiratory pattern is regular, symmetrical. 03/01 02:29 General: Pt became increasingly agitated and was trying to stand up out of the bed. PT kd3 evaluated at the bedside by this RN. Pt's breath sounds revealed coarse crackles. PT's O2 was 82 on room air. Pt placed on O2 5 L N/C. Provider came to the bedside. PT moved to room 3. RT called for BIPAP and ABG. . 03:04 Cardiovascular: Rhythm is sinus tachycardia. kd3 03:59 General: Report called to ICU. . kd3 Vital Signs: 02/28 22:02 BP 160 / 126; Pulse 122; Resp 18; Temp 97.7; Pulse Ox 99% ; Weight 27.22 kg; Height 5 cp4 ft. 0 in. ; Pain 0/10; 22:39 BP 160 / 126; Pulse 123; Resp 20; Pulse Ox 98% on R/A; kd3 23:54 BP 157 / 116; Pulse 118; Resp 19; Pulse Ox 97% on R/A; kd3 03/01 00:41 BP 182 / 115; Pulse 115; Resp 18; Pulse Ox 94% on R/A; kd3 02:05 BP 180 / 117; Pulse 125; Resp 25; Pulse Ox 92% on 4 lpm NC; oe 03:50 BP 159 / 113; Pulse 108; Resp 20; Pulse Ox 95% on BiPAP; kd3 02/28 22:02 Body Mass Index 11.72 (27.22 kg, 152.4 cm) cp4 02/28 22:02 Pain Scale: Adult cp4 Mireille Coma Score: 20:59 Eye Response: spontaneous(4). Motor Response: withdraws from pain(4). Verbal Response: sp4 incomprehensible(2). Total: 10. ED Course: 02/28 21:51 Patient arrived in ED. jj6 21:58 Gustavo Hebert MD is Attending Physician. sp4 22:06 Triage completed. cp4 22:06 Arm band placed on right wrist. Patient placed in waiting room. cp4 22:25 Karla Lainez, RN is Primary Nurse. kd3 22:38 Acetaminophen Sent. kd3 22:38 Basic Metabolic Panel Sent. kd3 22:38 CBC with Diff Sent. kd3 22:38 Hepatic Function Sent. kd3 22:38 PT-INR Sent. kd3 22:38 Ptt, Activated Sent. kd3 22:38 Salicylate Sent. kd3 22:38 Urinalysis w/ reflexes Sent. kd3 22:39 Urine Drug Screen Sent. kd3 22:40 Patient has correct armband on for positive identification. kd3 22:40 Inserted saline lock: 22 gauge in right upper arm, using aseptic technique. Blood kd3 collected. Flushed with 10 mL NS. 22:57 CRP Sent. oe 22:57 Lactate w/ 2H reflex if indic. Sent. oe 23:03 CT Head Brain wo Cont In Process Unspecified. EDMS 23:03 CT Chest Abdomen Pelvis W/O Contrast In Process Unspecified. EDMS 03/01 01:55 Parvin Cobb MD is Hospitalizing Provider. sp4 03:04 No provider procedures requiring assistance completed. kd3 04:39 Provided Education on: ICU admit . kd3 04:39 Patient admitted, IV remains in place. kd3 Administered Medications: 02/28 23:17 Drug: NS 0.9% IV 1000 ml IV at 100 ml/hr Per protocol; to be given as a bolus over 60 kd3 minutes Route: IV; Rate: 100 ml/hr; Site: right upper arm; 23:17 Drug: Rocephin - Rocephin (cefTRIAXone) IVPB 1 grams IVPB once over 30 mins; (mix in 50 kd3 mL NS) Route: IVPB; Infused Over: 30 mins; Site: right upper arm; 23:18 Drug: NS 0.9% IV 1000 ml IV at 1 bolus Per protocol; to be given as a bolus over 60 kd3 minutes Route: IV; Rate: 1 bolus; Site: right upper arm; 03/01 02:11 Drug: Ativan IVP 1 mg IVP once Route: IVP; Site: right forearm; kd3 02:27 Drug: Albumin IVPB 25 grams 100 ml IVPB once; (Note: Albumin 25% concentration) Volume: kd3 100 ml; Route: IVPB; Site: left antecubital; 03:41 Drug: Metoprolol IVP 2.5 mg IVP once Route: IVP; Site: right upper arm; kd3 Medication: 02/28 22:40 VIS not applicable for this client. kd3 Outcome: 03/01 01:55 Decision to Hospitalize by Provider. sp4 04:38 Admitted to ICU accompanied by nurse, via stretcher, with oxygen, kd3 04:38 Condition: stable 04:38 Discharge instructions given to patient, family, Instructed on the need for admit, Demonstrated understanding of instructions, 04:39 Patient left the ED. kd3 Signatures: Dispatcher [employer] EDMS Lance Cueva Jennifer [email or web address] Karla Lainez RN RN kd3 Gustavo Hebert MD MD sp4 Estephania Perez cp4
--- NOTE | 2025-03-01 01:57 | EDPHYS ---
Physician Documentation [facility] Name: Sue Haley Age: 54 yrs Sex: Female : 1970 Arrival Date: 02/28/2025 Time: 21:48 Bed 3 Private MD: ED Physician Gustavo Hebert HPI: 02/28 21:58 This 54 yrs old Female presents to ER via Unassigned with complaints of sp4 Altered Mental Status, Unresponsive. 03/01 20:56 Patient's states that for the past several days patient has been feeling sp4 unwell. Patient has problems with weight loss. She has been losing weight and smoking cannabis just to get some appetite. Also patient reportedly takes Xanax and she has ran out of her Xanax 2 weeks ago.. Patient is not talking today. Patient also has infected appearing eyes. Historical: - Allergies: 02/28 22:06 Codeine; cp4 - PMHx: 22:06 Depression; Gastroesophageal reflux disease; PTSD; TIA; cp4 - PSHx: 22:06 perforated ulcer; cp4 - Immunization history:: Adult Immunizations up to date. - Infectious Disease History:: Denies. - Social history:: Smoking status: Patient denies any tobacco usage or history of. - Family history:: not pertinent. ROS: 03/01 20:59 Constitutional: Negative for fever, chills, positive for decreased responsiveness, sp4 bilateral eye discharge, weight loss All other systems are negative, Exam: 20:59 Constitutional: Cachectic appearing female, malnourished appearing, signs of sp4 significant weight loss, nonverbal at this time, moderate to severe physical deconditioning, tachycardic, toxic appearing, hypertensive, bilateral eye discharge left more than the right. Appears unkempt with poor personal hygiene. Head/Face: Normocephalic, atraumatic. Eyes: Pupils equal round and reactive to light, Lids and lashes normal. Conjunctiva and sclera are not injected. Cornea within normal limits. Periorbital areas with no swelling, redness, or edema. Patient has bilateral purulent eye discharge left more than the right without signs of significant conjunctivitis. ENT: Nares patent. No nasal discharge, no septal abnormalities noted. Tympanic membranes are normal and external auditory canals are clear. Oropharynx with no redness, swelling, or masses, exudates, or evidence of obstruction, uvula midline. Dry mucous membranes, poor dentition Neck: Trachea midline, no thyromegaly or masses palpated, and no cervical lymphadenopathy. Supple, full range of motion without nuchal rigidity, or vertebral point tenderness. Chest/axilla: Normal chest wall appearance and motion. Nontender with no deformity. No lesions are appreciated. Cardiovascular: Regular rate and rhythm with a normal S1 and S2. No gallops, murmurs, or rubs. Normal PMI, no JVD. No pulse deficits. Respiratory: Lungs have equal breath sounds bilaterally, clear to auscultation and percussion. No rales, rhonchi or wheezes noted. No increased work of breathing, no retractions or nasal flaring. Abdomen/GI: Soft, with normal bowel sounds. No distension or tympany. No guarding or rebound. No evidence of tenderness throughout. Back: No spinal tenderness. No costovertebral tenderness. Skin: Warm, dry with normal turgor. Normal color with no rashes, no lesions, and no evidence of cellulitis. MS/ Extremity: Pulses equal, no cyanosis. Neurovascular intact. Full, normal range of motion. Neuro: Awake nonverbal at this time, cachectic female, not able to cooperate for physical exam, patient is able to move all 4 extremities, response to pain stimuli, additional exam is limited, grossly no lateralizing weakness found 20:59 ECG was reviewed by the Attending Physician. EKG at 2233 100. Would rated right axis, left ventricular hypertrophy, Vital Signs: 02/28 22:02 BP 160 / 126; Pulse 122; Resp 18; Temp 97.7; Pulse Ox 99% ; Weight 27.22 kg; Height 5 cp4 ft. 0 in. ; Pain 0/10; 22:39 BP 160 / 126; Pulse 123; Resp 20; Pulse Ox 98% on R/A; kd3 23:54 BP 157 / 116; Pulse 118; Resp 19; Pulse Ox 97% on R/A; kd3 03/01 00:41 BP 182 / 115; Pulse 115; Resp 18; Pulse Ox 94% on R/A; kd3 02:05 BP 180 / 117; Pulse 125; Resp 25; Pulse Ox 92% on 4 lpm NC; oe 03:50 BP 159 / 113; Pulse 108; Resp 20; Pulse Ox 95% on BiPAP; kd3 02/28 22:02 Body Mass Index 11.72 (27.22 kg, 152.4 cm) cp4 02/28 22:02 Pain Scale: Adult cp4 [place] Coma Score: 20:59 Eye Response: spontaneous(4). Motor Response: withdraws from pain(4). Verbal Response: sp4 incomprehensible(2). Total: 10. MDM: 01:43 ED course: CLINICAL HISTORY: DECLINING STATE. TECHNIQUE: Noncontrast CT through the sp4 head was performed. Axial, coronal, and sagittal reconstructions were created and sent to PACS. This exam was performed according to our departmental dose-optimization program which includes use of Automated Exposure Control, adjustment of the mA and/or kV according to patient size and/or use of iterative reconstruction technique. COMPARISON: None. FINDINGS: The brain parenchyma appears unremarkable. There is no intra-axial or extra-axial bleed seen. There is no mass or mass effect. The ventricles are unremarkable. The orbital contents appear unremarkable. The visualized paranasal sinuses and mastoid air cells are patent. No acute fracture is identified. IMPRESSION: No acute intracranial abnormality identified. . ED course: CLINICAL HISTORY: Abdominal distention. COMPARISON: XR Chest 12/09/2024, CTAbdomen Pelvis 07/09/2024. TECHNIQUE: CT CHESTABDOMEN PELVIS WITHOUT IV CONTRAST on 02/28/2025 10:08 PM CDT This exam was performed according to our departmental dose-optimization program, which includes automated exposure control, adjustment of the mA and/or kV according to patient size and/or use of iterative reconstruction technique. FINDINGS: Chest: The heart is normal in size. There is no pericardial effusion. Intrathoracic lymph nodes are not enlarged. There is no pleural effusion, pleural thickening or pneumothorax. Central airways are patent. There is moderate diffuse centrilobular emphysema. Abdomen: The liver is normal in appearance. There is no biliary dilatation. Gallbladder is normal in appearance. The pancreas and spleen are normal in appearance. Adrenal glands are normal. Lower pole left renal cyst measures 1.6 cm and was present previously. There is a 3 mm lower pole right renal calculus. There is no hydronephrosis. Abdominal aorta is moderately calcified without aneurysm. There is no free air. There is no retroperitoneal adenopathy. Pelvis: There is no bowel obstruction. Urinary bladder is unremarkable. There is no free fluid. Appendix is normal. Skeleton: There are no acute osseous findings. No suspicious bony lesions. IMPRESSION: No acute inflammatory process. Minimal right nephrolithiasis without hydronephrosis. . 01:53 Medical Screening Exam initiated sp4 21:04 Differential Diagnosis: electrolyte abnormality, alcohol intoxication, hypoglycemia, sp4 intracranial bleed, overdose, pneumonia, seizure, sepsis, UTI, volume depletion. Data reviewed: vital signs, nurses notes, lab test result(s), EKG, radiologic studies, CT scan. 21:05 Consideration of Admission/Observation Patient was admitted/placed on observation. sp4 Escalation of care including admission/observation considered. Management of patient was discussed with the following: Hospitalist: Reza VOSS . 21:06 ED course: Patient manifested with agitation, and oxygen desaturation. She had to be sp4 given lorazepam IV and started on BiPAP.. 02/28 22:06 Order name: Acetaminophen; Complete Time: : 4 02/28 22:06 Order name: Basic Metabolic Panel; Complete Time: 4 02/28 22:06 Order name: CBC with Diff; Complete Time: : sp4 02/28 22:06 Order name: ETOH Level; Complete Time: : sp4 02/28 22:06 Order name: Hepatic Function; Complete Time: 4 02/28 22:06 Order name: PT-INR; Complete Time: sp4 02/28 22:06 Order name: Ptt, Activated; Complete Time: : 4 02/28 22:06 Order name: Salicylate; Complete Time: : 4 02/28 22:06 Order name: Urinalysis w/ reflexes; Complete Time: : sp4 02/28 22:06 Order name: Urine Drug Screen; Complete Time: : 4 02/28 22:07 Order name: Blood Culture Adult (2) sp4 02/28 22:09 Order name: TSH; Complete Time: : 4 02/28 22:09 Order name: T4 Free; Complete Time: : 4 02/28 22:09 Order name: Lactate w/ 2H reflex if indic.; Complete Time: : 4 02/28 22:09 Order name: CRP; Complete Time: 01:41 sp4 03/01 02:13 Order name: ABG; Complete Time: 04:14 sp4 03/01 03:28 Order name: CBC with Automated Diff EDMS 03/01 03:28 Order name: CBC with Automated Diff EDMS 03/01 03:28 Order name: Comprehensive Metabolic Panel EDMS 03/01 03:28 Order name: Comprehensive Metabolic Panel EDMS 02/28 22:08 Order name: CT Head Brain wo Cont; Complete Time: 04:14 sp4 02/28 22:08 Order name: CT Chest Abdomen Pelvis W/O Contrast; Complete Time: 04:14 sp4 03/01 02:13 Order name: BIPAP sp4 02/28 22:06 Order name: EKG; Complete Time: 22:07 sp4 02/28 22:06 Order name: EKG - Nurse/Tech; Complete Time: 22:38 sp4 02/28 22:06 Order name: IV Saline Lock; Complete Time: 22:38 sp4 02/28 22:06 Order name: Labs collected and sent; Complete Time: 22:38 sp4 02/28 22:06 Order name: Suicide Screening ([place]); Complete Time: 23:02 sp4 EC/21 22:33 Rate is 120 beats/min. Rhythm is regular, Sinus tachycardia. Right axis deviation sp4 noted. SC interval is normal. QRS interval is normal. QT interval is normal. No Q waves. T waves are Normal. ST Segment is depressed in leads V5, V6, 1-2mm. Interpreted by me. Reviewed by me. Administered Medications: 23:17 Drug: NS 0.9% IV 1000 ml IV at 100 ml/hr Per protocol; to be given as a bolus over 60 kd3 minutes Route: IV; Rate: 100 ml/hr; Site: right upper arm; 23:17 Drug: Rocephin - Rocephin (cefTRIAXone) IVPB 1 grams IVPB once over 30 mins; (mix in 50 kd3 mL NS) Route: IVPB; Infused Over: 30 mins; Site: right upper arm; 23:18 Drug: NS 0.9% IV 1000 ml IV at 1 bolus Per protocol; to be given as a bolus over 60 kd3 minutes Route: IV; Rate: 1 bolus; Site: right upper arm; 03/01 02:11 Drug: Ativan IVP 1 mg IVP once Route: IVP; Site: right forearm; kd3 02:27 Drug: Albumin IVPB 25 grams 100 ml IVPB once; (Note: Albumin 25% concentration) Volume: kd3 100 ml; Route: IVPB; Site: left antecubital; 03:41 Drug: Metoprolol IVP 2.5 mg IVP once Route: IVP; Site: right upper arm; kd3 Disposition: 21:05 Chart complete. sp4 21:06 Critical Care:. sp4 Disposition Summary: 03/01/25 01:55 Hospitalization Ordered Notes: Hospitalization Status: Inpatient Admission sp4 Provider: Parvin Cobb sp4 Condition: Fair sp4 Problem: new sp4 Symptoms: have improved sp4 Bed/Room Type: Standard sp4 Location: Intensive Care Unit(03/01/25 03:49) vk Room Assignment: 4-(03/01/25 03:49) vk Diagnosis - Toxic encephalopathy sp4 - Moderate dehydration, hemoconcentration, altered mental status, acute hypoactive sp4 delirium - Cannabis use disorder sp4 Forms: - Medication Reconciliation Form sp4 - SBAR form sp4 - Leadership Thank You Letter sp4 Critical care time excluding procedures: 21:06 Critical care time: Bedside Care: 36 minutes, Consultation: 12 minutes, Family sp4 Intervention: 12 minutes. Total time: 60 minutes Signatures: Dispatcher [employer] Karla Smith RN RN kd3 Gustavo Hebert MD MD sp4 Estephania Perez Vivian vk Corrections: (The following items were deleted from the chart) 02/28 22:10 22:10 THYROID STIMULAT HORMONE+C.LAB.BRZ ordered. EDMS EDMS 22:10 22:10 T4 FREE+C.LAB.BRZ ordered. EDMS EDMS 22:10 22:10 LACTATE+C.LAB.BRZ ordered. EDMS EDMS 22:10 22:10 C-REACTIVE PROTEIN+C.LAB.BRZ ordered. EDMS EDMS 03/01 03:49 01:55 Telemetry/MedSurg (Inpatient) sp4 vk 03:49 01:55 sp4 vk
[2025-03-01] MEDS ORDERED: LORazepam 2 MG/ML VIAL ONE (02:01)
[2025-03-01] MEDS ORDERED: ALBUMIN HUMAN 25% 100 ML IV ONE (02:18)
--- NOTE | 2025-03-01 02:41 | RAD REPORT ---
CLINICAL HISTORY: DECLINING STATE. TECHNIQUE: Noncontrast CT through the head was performed. Axial, coronal, and sagittal reconstructions were crea nadiya and sent to PACS. This exam was performed according to our departmental dose-optimization program which includes use of Automated Exposure Control, adjustment of the mA and/or kV according to patient size and/or use of iterative reconstruction technique. COMPARISON: None. FINDINGS: The brain parenchyma appears unremarkable. There is no intra-axial or extra-axial bleed seen. There i s no mass or mass effect. The ventricles are unremarkable. The orbital contents appear unremarkable. The visualized paranasal sinuses and mastoid air cells are patent. No acute fracture is identified. IMPRESSION: No acute intracranial abnormality identified. Electronically signed by: Corazon Horner MD 02/28/2025 11:37 PM CDT RP Due to temporary technical issues with the PACS/[employer] reporting system, reports are being bishnu d by the in-house radiologist without review as a courtesy to ensure prompt reporting the interpreting radiologist is fully responsible for the content of the report. Transcribed Date/Time: 03/01/2025 2:41 AM
--- NOTE | 2025-03-01 02:42 | RAD REPORT ---
CLINICAL HISTORY: Abdominal distention. COMPARISON: XR Chest 12/09/2024, CT Abdomen Pelvis 07/09/2024. TECHNIQUE: CT CHEST ABDOMEN PELVIS WITHOUT IV CONTRAST on 02/28/2025 10:08 PM CDT This exam was performed according to our departmental dose-optimization program, which includes autom ated exposure control, adjustment of the mA and/or kV according to patient size and/or use of iterative reconstruction technique. FINDINGS: Chest: The heart is normal in size. There is no pericardial effusion. Intrathoracic lymph nodes are n ot enlarged. There is no pleural effusion, pleural thickening or pneumothorax. Central airways are patent. There i s moderate diffuse centrilobular emphysema. Abdomen: The liver is normal in appearance. There is no biliary dilatation. Gallbladder is normal in appearance. The pancreas and spleen are normal in appearance. Adrenal glands are normal. Lower pole left renal cyst measures 1.6 cm and was present previously. There is a 3 mm lower pole right renal ca lculus. There is no hydronephrosis. Abdominal aorta is moderately calcified without aneurysm. There is no free air. There is no retroperi toneal adenopathy. Pelvis: There is no bowel obstruction. Urinary bladder is unremarkable. There is no free fluid. Appen ollie is normal. Skeleton: There are no acute osseous findings. No suspicious bony lesions. IMPRESSION: No acute inflammatory process. Minimal right nephrolithiasis without hydronephrosis. Left Bosniak I/Bosniak II benign renal cyst. No follow-up imaging is recommended. JACR 2018 Dec; 264- 273, Management of the Incidental Renal Mass on CT, [employer] 2020; 814-848, Bosniak Classification of Cystic Renal Masses, Version 2019. Electronically signed by: Diallo Dowd MD 02/28/2025 11:55 PM CDT RP Due to temporary technical issues with the PACS/[employer] reporting system, reports are being bishnu d by the in-house radiologist without review as a courtesy to ensure prompt reporting the interpreting radiologist is fully responsible for the content of the report. Transcribed Date/Time: 03/01/2025 2:42 AM
[2025-03-01 03:18] LABS: Arterial Blood Carboxyhemoglob 0.6 % (0-1.5); Blood Gas Oxyhemoglobin 68.8 % (94-97); Blood Gas THB 14.3 g/dl (12-18)
[2025-03-01] MEDS ORDERED: ONDANSETRON 4 MG/2 ML VIAL IV PRN (03:25)
[2025-03-01] MEDS ORDERED: ROCURONIUM 50 MG/5 ML VIAL IV ONE (03:25)
[2025-03-01] MEDS ORDERED: SUCCINYLCHOLINE 20 MG/ML (10 ML) IV ONE (03:25)
--- NOTE | 2025-03-01 03:27 | P.HP ---
Patient History Date of Service: 03/01/25 Reason for admission: Acute metabolic encephalopathy History of Present Illness: 54-year-old female with a past medical history of COPD, hypertension, gastric ulcer presenting with confusion for the last 3 days. Her is at bedside and narrates the story. He states her speech and cognition has increasingly become impaired. He states that she smokes marijuana to increase her appetite. She has been losing weight because she has not been eating. She recently gained some weight from 65 pounds to 80 pounds. In addition he states there was some brain imaging that showed demyelination. He denies any fevers and chills. He states she has been voiding and having appropriate bowel movements. In addition she has stopped taking Xanax about a week ago. She is seen resting in the ED on CPAP. Allergies codeine Allergy (Verified 05/22/16 12:22) Unknown Home Medications: Atorvastatin Calcium [Lipitor*] 10 mg PO DAILY 05/22/16 Citalopram [Celexa*] 40 mg PO DAILY 05/22/16 Clopidogrel Bisulfate [Plavix*] 75 mg PO DAILY 05/22/16 Propranolol [Inderal*] 10 mg PO DAILY 05/22/16 Review of Systems is unable to be obtained Physical Examination - Vital Signs Pulse: 86 Pulse Ox (%): 94 - Physical Exam General: Cachectic, Confused, Other (On BiPAP) HEENT: Normocephalic, Other (Temporal wasting) Neck: Supple Respiratory: Clear to auscultation bilaterally Capillary refill: <2 Seconds Gastrointestinal: Normal bowel sounds Musculoskeletal: No clubbing Integumentary: No rashes Neurological: Normal strength at 5/5 x4 extr Lymphatics: No axilla or inguinal lymphadenopathy - Studies Laboratory Data (last 24 hrs) 02/28/25 02/28/25 02/28/25 22:25 22:25 22:25 WBC 14.50 H Hgb 15.6 H Hct 47.8 H Plt Count 550 H PT 12.0 INR 1.06 APTT 35.4 Sodium 143 Potassium 3.7 BUN 40 H Creatinine 0.89 Glucose 104 Total Bilirubin 0.9 AST 17 ALT 17 Alkaline Phosphatase 83 Assessment and Plan - Plan Acute metabolic encephalopathy COPD exacerbation Acute respiratory failure Leukocytosis Dehydration COPD Marijuana use Severe protein calorie malnutrition Admit to floor Blood cultures pending Continue BiPAP, DuoNebs, Rocephin, IV steroids Head CT reviewed Obtain procalcitonin and CRP Continue IV fluids Consult dietitian She has been using marijuana for an appetite stimulant Consider pulmonology consult in the a.m. Consider brain MRI DVT prophylaxis with Lovenox - Advance Directives Does patient have a Living Will: No Does patient have a Durable POA for Healthcare: No
[2025-03-01] MEDS ORDERED: METOPROLOL TARTRATE 5 MG/5 ML INJ IV ONE (03:36)
[2025-03-01] MEDS: NA CHLORIDE 0.9% 1,000 ML IV SCH (04:49)
[2025-03-01] MEDS: LABETALOL 20 MG/4ML SYRINGE IV PRN (05:05)
[2025-03-01] MEDS: ALBUTEROL 2.5 MG/3 ML NEB SOL NEB SCH (07:46)
[2025-03-01] MEDS: IPRATROPIUM BROM 0.5MG/2.5ML NEB SCH (07:46)
[2025-03-01 08:02] LABS: Absolute Lymphocytes (CBC) 0.5 K/uL (0.7-4.9); Absolute Monocytes 1.6 K/uL (0.1-1.3); Absolute Neutrophil 21.1 K/uL (1.8-8.0); Basophils % 0.2 % (0-1.3); Eosinophils % 0.1 % (0-4.4); Hematocrit 37.7 % (36.0-45.0); Hemoglobin 12.6 g/dL (12.0-15.0); Lymphocytes % 2.2 % (15.3-44.8); MCH 31.7 pg (27.0-35.0); MCHC 33.4 g/dL (32.0-36.0); MCV 94.8 fL (80-100); MPV 7.2 fL (7.6-11.3); Monocytes % 6.7 % (3.3-12.3); Neutrophils % 90.8 % (41.7-73.7); Platelets 413 thou/uL (152-406); RBC Red Blood Cell Count 3.98 M/uL (3.86-4.86); Red Cell Distribution Width 16.2 % (12.1-15.2)
[2025-03-01 08:21] LABS: Anion Gap 10.2 mEq/L (5.0-15.0); Potassium 3.2 mEq/L (3.5-5.1)
[2025-03-01 08:47] LABS: Blood Morphology Comment NOT SEEN (NOT SEEN); Platelet Estimate ADEQ; White Blood Cell Scan OK (OK)
[2025-03-01] MEDS: HYDRALAZINE HCL 20 MG/ML VIAL IV PRN (08:56)
[2025-03-01] MEDS: CEFTRIAXONE 1,000 MG in NA CHLORIDE 0.9% 50 ML IVPB SCH (08:56)
[2025-03-01] MEDS: CLOPIDOGREL 75 MG TABLET PO SCH (08:57)
[2025-03-01] MEDS: ATORVASTATIN 10 MG TAB PO SCH (08:57)
[2025-03-01] MEDS: METHYLPREDNISOLONE 40 MG INJ IV SCH (08:57)
[2025-03-01] MEDS: PROPRANOLOL HCL 10 MG TAB PO SCH (08:57)
[2025-03-01] MEDS ORDERED: PROPRANOLOL HCL 10 MG TAB PO SCH (09:00)
[2025-03-01] MEDS: HALOPERIDOL LACT 5 MG/ML INJ IV ONE (09:25)
[2025-03-01] MEDS: LORazepam 2 MG/ML VIAL IV ONE (09:27)
[2025-03-01] MEDS: FUROSEMIDE 20 MG/ 2ML VIAL IV ONE (10:02)
--- NOTE | 2025-03-01 10:53 | RAD REPORT ---
Procedure: Chest Single View HISTORY: Shortness of breath COMPARISON: 2023 FINDINGS: The lungs appear clear of acute infiltrate. Lungs are markedly hyperaerated. No significant pleural effusion noted. The heart is normal size. IMPRESSION: COPD without visualization of an acute abnormality
[2025-03-01] MEDS: DEXMEDETOMIDINE HCL 200 MCG in NA CHLORIDE 0.9% 98 ML IV SCH (11:12)
[2025-03-01 11:46] LABS: Arterial Blood Carboxyhemoglob 0.8 % (0-1.5); Blood Gas Oxyhemoglobin 95.4 % (94-97); Blood Gas THB 14.5 g/dl (12-18)
[2025-03-01] MEDS: ENSURE ENLIVE 237 ML CAN PO SCH (12:00)
--- NOTE | 2025-03-01 12:17 | P.PN ---
Subjective Date of Service: 03/01/25 Chief Complaint: Acute metabolic encephalopathy Subjective: Confused, agitated, currently on BiPAP. Objective: General appearance: Alert, confused and agitated CVS: Normal S1 and S2 Lungs: No wheeze but lung sounds congested Abdomen: Soft, bowel sounds present, no tenderness Extremities: No lower extremity edema Physical Examination - Vital Signs Temperature: 98.3 F Blood Pressure: 165/128 Pulse: 130 Respirations: 32 Pulse Ox (%): 97 - Studies Laboratory Data (last 24 hrs) 02/28/25 02/28/25 02/28/25 22:25 22:25 22:25 WBC 14.50 H Hgb 15.6 H Hct 47.8 H Plt Count 550 H PT 12.0 INR 1.06 APTT 35.4 Sodium 143 Potassium 3.7 BUN 40 H Creatinine 0.89 Glucose 104 Total Bilirubin 0.9 AST 17 ALT 17 Alkaline Phosphatase 83 Assessment And Plan - Plan 1. Acute metabolic encephalopathy: CT head negative, monitor closely. 2. COPD exacerbation: Continue nebs, steroids, antibiotics, increasing WBC count today probably from steroids. - Will give her a dose of Lasix, stop fluids 3. Acute hypoxic and hypercapnic respiratory failure: Continue BiPAP, pulmonary consult requested. 4. Marijuana use: She has some agitation, she may be withdrawing from some drugs, monitor closely. 5. Severe protein calorie malnutrition 6. Leukocytosis: CT head negative, CT chest abdomen pelvis negative as well, monitor closely, on antibiotics to cover for COPD. 7. Mild hypernatremia: Monitor closely 8. Hypokalemia: Replace and monitor. 9. Microscopic hematuria: Follow-up with PCP with repeat urinalysis. Plan discussed with the patient's and nursing staff at bedside. Critically ill patient, total time spent today greater than 40 minutes of critical care time.
--- NOTE | 2025-03-01 12:32 | P.CNS ---
Date of Consult: 03/01/25 Reason for Consult: COPD exacerbation Chief Complaint: COPD exacerbation altered mental status History of Present Illness: Patient is 54 years of age at the bedside has been having altered mental status for the past 3 days worsening dyspnea there is a history of significant depression loss of appetite patient uses marijuana to eat and has been using excessive doses of Xanax as per she had a similar episode about 3 months ago patient is clearly altered disoriented Allergies codeine Allergy (Verified 05/22/16 12:22) Unknown Home Medications: Atorvastatin Calcium [Lipitor*] 10 mg PO DAILY 05/22/16 Citalopram [Celexa*] 40 mg PO DAILY 05/22/16 Clopidogrel Bisulfate [Plavix*] 75 mg PO DAILY 05/22/16 Propranolol [Inderal*] 10 mg PO DAILY 05/22/16 - Past Medical/Surgical History -: COPD -: Xanax abuse -: Depression -: Cachexia - Social History Smoking Status: Current every day smoker Alcohol use: No CD- Drugs: Yes Caffeine use: Yes Place of Residence: Home Review of Systems is unable to be obtained Physical Examination Temp Pulse Resp BP Pulse Ox 98.3 F 130 H 32 H 165/128 H 97 03/01/25 12:16 03/01/25 12:16 03/01/25 12:16 03/01/25 12:16 03/01/25 12:16 General: Alert, Moderate distress Respiratory: Clear to auscultation bilaterally, Diminished Cardiovascular: No edema, Normal pulses, Regular rate/rhythm Gastrointestinal: Normal bowel sounds, Soft and benign Musculoskeletal: No clubbing, No contractures Laboratory Data (last 24 hrs) 02/28/25 02/28/25 02/28/25 22:25 22:25 22:25 WBC 14.50 H Hgb 15.6 H Hct 47.8 H Plt Count 550 H PT 12.0 INR 1.06 APTT 35.4 Sodium 143 Potassium 3.7 BUN 40 H Creatinine 0.89 Glucose 104 Total Bilirubin 0.9 AST 17 ALT 17 Alkaline Phosphatase 83 - Problems (1) COPD exacerbation Current Visit: Yes Status: Acute Plan: Patient is 54 years of age with a history of COPD uses nebulizers at home according to the using Xanax illegally purchased history of Xanax abuse history of depression smokes marijuana to stimulate her appetite came in with altered mental status blood gases satisfactory white count is elevated urinalysis is positive for for benzodiazepines patient's blood pressure is significantly elevated chest x-ray shows COPD changes will admit use nasal cannula oxygen Precedex resume her home medications add long-acting benzodiazepines IV thiamine no significant abnormalities identified on CT scan of the chest head and the abdomen possible that patient is septic treated broad- spectrum antibiotics patient is hypernatremic started on half-normal saline add a clonidine patch
[2025-03-01] MEDS: D5 0.45 NS 1,000 ML with POTASSIUM CL 10 MEQ IV SCH (13:00)
[2025-03-01] MEDS: POTASSIUM CL 40 MEQ in NA CHLORIDE 0.9% 500 ML IV SCH (13:01)
[2025-03-01] MEDS: THIAMINE 200 MG/2 ML INJ IVP SCH (13:01)
[2025-03-01] MEDS: LORazepam 2 MG/ML VIAL IV PRN ×2 (13:11→23:12)
[2025-03-01] MEDS: propofoL 1,000 MG/100 ML VIAL IV ONE (13:54)
--- NOTE | 2025-03-01 14:44 | RAD REPORT ---
EXAMINATION: ONE VIEW CHEST XR CLINICAL INDICATION: ETT Placement TECHNIQUE: Frontal chest projection is submitted. Examination is limited by patient positioning and t echnique. COMPARISON: No prior exam. FINDINGS: ET tube tip appears above the laney. Enteric tube tip is in the stomach. Lungs appear hyperexpanded but clear. The heart is normal in size.
--- NOTE | 2025-03-01 14:45 | RAD REPORT ---
EXAM: XR of the abdomen HISTORY: Abdominal pain OGT Placement COMPARISON: None FINDINGS: Tip of the enteric tube is likely within the stomach. Side-port is also within the stomach.
[2025-03-01] MEDS: propofoL 1,000 MG/100 ML VIAL IV SCH (14:55)
[2025-03-01] MEDS ORDERED: propofoL 1,000 MG/100 ML VIAL IV SCH (15:00)
[2025-03-01] MEDS: CLONIDINE 0.1 MG/PATCH TD SCH (16:17)
[2025-03-01] MEDS: ENOXAPARIN 30 MG/0.3 ML SQ SCH (17:57)
[2025-03-01] MEDS: VITAL AF 1,000 ML BOT RTH SCH (20:00)
[2025-03-01] MEDS: FENTANYL CITR 100 MCG/2 ML IV PRN (22:05)
[2025-03-02] MEDS: MIDAZOLAM HCL 2 MG/2 ML INJ IV PRN (01:06)
[2025-03-02] MEDS: HALOPERIDOL LACT 5 MG/ML INJ IV PRN (02:11)
[2025-03-02 07:50] LABS: Absolute Lymphocytes (CBC) 0.7 K/uL (0.7-4.9); Absolute Monocytes 0.5 K/uL (0.1-1.3); Absolute Neutrophil 12.7 K/uL (1.8-8.0); Basophils % 0.3 % (0-1.3); Eosinophils % 0.3 % (0-4.4); Hematocrit 37.6 % (36.0-45.0); Hemoglobin 12.4 g/dL (12.0-15.0); MCH 31.4 pg (27.0-35.0); MCHC 33.1 g/dL (32.0-36.0); MCV 95.1 fL (80-100); MPV 7.6 fL (7.6-11.3); Monocytes % 3.8 % (3.3-12.3); Neutrophils % 90.6 % (41.7-73.7); Nucleated Red Blood Cells % 0.1 % (0-0); Platelets 308 thou/uL (152-406); RBC Red Blood Cell Count 3.96 M/uL (3.86-4.86); Red Cell Distribution Width 16.6 % (12.1-15.2)
[2025-03-02] MEDS ORDERED: LORazepam 2 MG/ML VIAL IV PRN (08:02)
[2025-03-02] MEDS: AZITHROMYCIN 250 MG TAB PO SCH (08:03)
[2025-03-02] MEDS: DEXMEDETOMIDINE HCL 200 MCG in NA CHLORIDE 0.9% 98 ML IV SCH (08:04)
[2025-03-02 08:07] LABS: AST/SGOT 18 U/L (15-37); Albumin/Globulin Ratio 0.8 (1.1-1.8); Alkaline Phosphatase 47 U/L (45-117); Anion Gap 6.6 mEq/L (5.0-15.0); BUN Blood Urea Nitrogen 25 mg/dL (7-18); Bicarbonate 26 mEq/L (21-32); Bilirubin Total 0.4 mg/dL (0.2-1.0); Globulin 3.7 g/dL (2.3-3.5); Glomerular Filtration Rate 104 ml/min (=/>90); Glucose Level 191 mg/dL (74-106); Magnesium 2.3 mg/dL (1.6-2.4); Phosphorus 2.6 mg/dL (2.5-4.9); Potassium 3.6 mEq/L (3.5-5.1); Protein, Total 6.7 g/dL (6.4-8.2); Sodium Level 149 mEq/L (136-145)
[2025-03-02 08:08] LABS: ALT/SGPT < 14 U/L (13-56)
[2025-03-02] MEDS: POTASSIUM 25 MEQ EFFERV TAB PO ONE (09:12)
--- NOTE | 2025-03-02 10:46 | P.PN ---
Subjective Date of Service: 03/02/25 Chief Complaint: COPD exacerbation altered mental status Subjective: On vent, agitated, trying to get up. Objective: General appearance: agitated CVS: Normal S1 and S2 Lungs: Lungs are clear today Abdomen: Soft, bowel sounds present, no tenderness Extremities: No lower extremity edema Physical Examination - Vital Signs Temperature: 97.7 F Blood Pressure: 97/68 Pulse: 70 Respirations: 15 Pulse Ox (%): 100 Assessment And Plan - Plan 1. Acute metabolic encephalopathy: CT head negative, monitor closely. 2. COPD exacerbation: Continue nebs, steroids, antibiotics - WBC trending down today 3. Acute hypoxic and hypercapnic respiratory failure: Currently on vent, pulmonary is on board, appreciate recommendations 4. Marijuana use, benzodiazepine abuse: Continue to monitor for withdrawal. 5. Severe protein calorie malnutrition 6. Leukocytosis: CT head negative, CT chest abdomen pelvis negative as well, monitor closely, on antibiotics to cover for COPD/ ?pneumonia. 7. Mild hypernatremia: Monitor closely, continue D5 fluids 8. Hypokalemia: Replaced, monitor. 9. Microscopic hematuria: Follow-up with PCP with repeat urinalysis. Plan discussed with the patient's and nursing staff at bedside. Critically ill patient, total time spent today greater than 42 minutes of critical care time.
--- NOTE | 2025-03-02 12:15 | P.PN ---
Subjective Date of Service: 03/02/25 Chief Complaint: COPD exacerbation altered mental status Patient remains very agitated on a ventilator blood pressure is decreased Review of Systems is unable to be obtained Physical Examination - Vital Signs Temperature: 97.7 F Blood Pressure: 97/68 Pulse: 70 Respirations: 15 Pulse Ox (%): 100 - Physical Exam General: Delirious, Unresponsive Respiratory: Clear to auscultation bilaterally, Diminished Cardiovascular: No edema, Regular rate/rhythm, Normal S1 S2 Gastrointestinal: Normal bowel sounds, Soft and benign - Studies Laboratory Data (last 24 hrs) 03/02/25 03/02/25 03/01/25 07:36 07:36 16:52 WBC 14.00 H Hgb 12.4 Hct 37.6 Plt Count 308 Sodium 149 H Cancelled Potassium 3.6 Cancelled BUN 25 H Cancelled Creatinine 0.69 Cancelled Glucose 191 H Cancelled Phosphorus 2.6 Magnesium 2.3 Total Bilirubin 0.4 AST 18 ALT < 14 Alkaline Phosphatase 47 Assessment And Plan - Current Problems (Diagnosis) (1) COPD exacerbation Current Visit: Yes Status: Acute Plan: Patient was intubated yesterday due to respiratory distress still continues to remain very agitated otherwise hemodynamically stable blood pressure is declined I suspect is from the propofol chest x-ray review hyperinflated endotracheal tube satisfactory position plan to extubate patient is hypernatremic changed to D5 water blood gases satisfactory minimal oxygen requirement we will plan to extubate her today
--- NOTE | 2025-03-02 12:39 | EKG ---
Test Date: 2025-02-28 Test Time: 22:33:59 Director Of Online Merchandising: [employer] MEASUREMENT RESULTS: Intervals: Rate: 120 OH: 118 QRSD: 76 QT: 314 QTc: 443 [place]: P: 85 OH: 118 QRS: 91 T: -78 INTERPRETIVE STATEMENTS: Sinus tachycardia Biatrial enlargement Rightward axis Pulmonary disease pattern Left ventricular hypertrophy Marked ST abnormality, possible inferior subendocardial injury Abnormal ECG Compared to ECG 09/17/2024 23:20:24 Right-axis deviation now present Left ventricular hypertrophy now present ST (T wave) deviation still present Electronically Signed On 03-02-25 12:36:54 CDT by Jaya Rodgers
[2025-03-02] MEDS: D5W 1,000 ML IV SCH (14:24)
[2025-03-02] MEDS: METHYLPREDNISOLONE 40 MG INJ IV SCH (20:15)
[2025-03-02] MEDS: MIRTAZAPINE 15 MG TAB PO SCH (20:15)
[2025-03-03] MEDS: FENTANYL CITR 100 MCG/2 ML IV PRN (02:27)
[2025-03-03 04:51] VITALS: BMI 15.5
[2025-03-03 06:09] LABS: Absolute Monocytes 0.7 K/uL (0.1-1.3); Absolute Neutrophil 13.1 K/uL (1.8-8.0); Basophils % 0.1 % (0-1.3); Hematocrit 35.7 % (36.0-45.0); Hemoglobin 11.8 g/dL (12.0-15.0); Lymphocytes % 6.8 % (15.3-44.8); MCH 31.6 pg (27.0-35.0); MCHC 33.1 g/dL (32.0-36.0); MCV 95.4 fL (80-100); MPV 8.3 fL (7.6-11.3); Monocytes % 4.6 % (3.3-12.3); Neutrophils % 88.5 % (41.7-73.7); Nucleated Red Blood Cells % 0.1 % (0-0); Platelets 306 thou/uL (152-406); RBC Red Blood Cell Count 3.74 M/uL (3.86-4.86); Red Cell Distribution Width 15.8 % (12.1-15.2)
[2025-03-03 06:22] LABS: Anion Gap 8.3 mEq/L (5.0-15.0); Phosphorus 2.4 mg/dL (2.5-4.9); Potassium 3.3 mEq/L (3.5-5.1)
[2025-03-03] MEDS: POTASS/SODIUM PHOSPHATE 1 PKT POWD.PACK PO SCH (07:30)
[2025-03-03] MEDS: POTASSIUM CL SA 10 MEQ TAB PO ONE (08:16)
[2025-03-03] MEDS: THIAMINE HCL 100 MG TABLET PO SCH (09:00)
[2025-03-03] MEDS: DULERA 200/5 (MOMETASONE/FORMOTEROL) INHALER IH SCH (12:36)
[2025-03-03] MEDS ORDERED: ALBUTEROL 2.5 MG/3 ML NEB SOL NEB PRN (12:37)
--- NOTE | 2025-03-03 12:37 | P.PN ---
Subjective Date of Service: 03/03/25 Chief Complaint: COPD exacerbation Patient was extubated yesterday is doing much better more alert responsive cooperative does not recall the events that precipitated her admission uses albuterol on a as needed basis Review of Systems 10-point ROS is otherwise unremarkable General: Weakness Respiratory: Shortness of Breath Physical Examination - Vital Signs Temperature: 98.6 F Blood Pressure: 158/88 Pulse: 87 Respirations: 16 Pulse Ox (%): 99 - Physical Exam General: Alert, Oriented x3 Respiratory: Clear to auscultation bilaterally, Diminished Cardiovascular: No edema, Regular rate/rhythm Assessment And Plan - Current Problems (Diagnosis) (1) COPD exacerbation Current Visit: Yes Status: Acute Plan: Patient is 54 years of age admitted with respiratory failure COPD exacerbation was extubated yesterday today patient is back to her baseline very alert responsive answering appropriately oriented x 3 denies any significant history of weight loss nausea or vomiting denies excessive use of Xanax patient's white count is declining continue with Rocephin bronchodilators will need home bronchodilators changeover operator to p.o. prednisone patient's blood pressure is little elevated continue with mirtazapine probably underlying significant depression hyponatremia has resolved DC IV fluid transferred to the floor discharge tomorrow on prednisone 10 mg twice a day for 10 days continue with some cefuroxime consider changing to mirtazapine will stimulate her appetite and for depression DC citalopram Discharge Plan: Home Plan to discharge in: 24 Hours
--- NOTE | 2025-03-03 13:41 | P.PN ---
Subjective Date of Service: 03/03/25 Chief Complaint: COPD exacerbation Subjective: No chest pain or shortness of breath. No nausea or vomiting. No abdominal pain. No obvious bleeding. Looks comfortable in the bed. Extubated. Objective: General appearance: Alert and comfortable. CVS: Normal S1 and S2 Lungs: Lungs are clear today Abdomen: Soft, bowel sounds present, no tenderness Extremities: No lower extremity edema NURSERY RN: Alert, oriented, moves all 4 extremities with commands Physical Examination - Vital Signs Temperature: 98.6 F Blood Pressure: 157/95 Pulse: 105 Respirations: 16 Pulse Ox (%): 94 Assessment And Plan - Plan 1. Acute metabolic encephalopathy: CT head negative, improved, monitor closely. 2. COPD exacerbation: Continue nebs, steroids, antibiotics - WBC trending down today 3. Acute hypoxic and hypercapnic respiratory failure: S/p extubation, pulmonary is on board, appreciate recommendations 4. Marijuana use, benzodiazepine abuse: Continue to monitor for withdrawal. 5. Severe protein calorie malnutrition 6. Leukocytosis: CT head negative, CT chest abdomen pelvis negative as well, monitor closely, on antibiotics to cover for COPD/ ?pneumonia. 7. Mild hypernatremia: Resolved with D5 fluids 8. Hypokalemia: Replaced, monitor. 9. Microscopic hematuria: Follow-up with PCP with repeat urinalysis. Plan discussed with the patient, and nursing staff at bedside.
[2025-03-03] MEDS: PROPRANOLOL HCL 10 MG TAB PO SCH (15:26)
[2025-03-03] MEDS: ENSURE ENLIVE 237 ML CAN PO SCH (16:05)
[2025-03-03] MEDS: ACETAMINOPHEN 500 MG TAB PO PRN (20:40)
[2025-03-03] MEDS: predniSONE 20 MG TAB PO SCH (20:41)
[2025-03-03] MEDS: CEFUROXIME 250 MG TAB PO SCH (20:42)
[2025-03-04 04:57] LABS: Absolute Basophils 0.1 K/uL (0-0.5); Absolute Lymphocytes (CBC) 1.3 K/uL (0.7-4.9); Absolute Monocytes 0.7 K/uL (0.1-1.3); Basophils % 0.5 % (0-1.3); Hematocrit 37.1 % (36.0-45.0); Hemoglobin 12.5 g/dL (12.0-15.0); Lymphocytes % 11.1 % (15.3-44.8); MCH 31.7 pg (27.0-35.0); MCHC 33.7 g/dL (32.0-36.0); MCV 94.2 fL (80-100); MPV 8.1 fL (7.6-11.3); Monocytes % 5.5 % (3.3-12.3); Neutrophils % 82.9 % (41.7-73.7); Nucleated Red Blood Cells % 0.1 % (0-0); Platelets 314 thou/uL (152-406); RBC Red Blood Cell Count 3.94 M/uL (3.86-4.86); Red Cell Distribution Width 15.9 % (12.1-15.2)
[2025-03-04 06:05] LABS: Anion Gap 7.4 mEq/L (5.0-15.0); Potassium 3.4 mEq/L (3.5-5.1)
[2025-03-04 08:44] VITALS: O2SAT 96
[2025-03-04] MEDS: PROPRANOLOL HCL 10 MG TAB PO SCH (08:50)
[2025-03-04] MEDS: POTASSIUM CL SA 10 MEQ TAB PO ONE (08:51)
--- NOTE | 2025-03-04 10:33 | P.DS ---
Admission Date: 03/02/25 Discharge Date: 03/04/25 Disposition: DC HOME/HOME HEALTH CARE Discharge Condition: GOOD Reason for Admission: COPD exacerbation Hospital Course: Discharge diagnosis: 1. Acute metabolic encephalopathy: CT head negative, improved 2. COPD exacerbation: Continue nebs, steroids, antibiotics - WBC trending down 3. Acute hypoxic and hypercapnic respiratory failure: S/p extubation 4. Marijuana use, benzodiazepine abuse: advised to stop 5. Severe protein calorie malnutrition 6. Leukocytosis: CT head negative, CT chest abdomen pelvis negative as well, monitor closely, on antibiotics to cover for COPD/ ?pneumonia, WBC improving. 7. Mild hypernatremia: Resolved with D5 fluids 8. Hypokalemia: Replaced, monitor. 9. Microscopic hematuria: Follow-up with PCP with repeat urinalysis. 10. Hypertension: increased propranolol, need f/u with PCP Plan discussed with the patient, and answered all questions, DC home today. Hospital course: 54-year-old patient admitted with encephalopathy and COPD exacerbation, she was started on steroids, nebs and antibiotics, her respiratory status was getting worse, she was transferred to ICU, pulmonary was consulted, she was intubated, when she was clinically stable, she was extubated, pulmonary recommend to finish the course of antibiotics and oral steroids, when I see the patient today she is doing well without any acute problems, feels ready to go home, she is not on requiring oxygen, otherwise no other acute issues going on so I am planning to discharge her to go home. She was using marijuana and benzodiazepines, I strongly advised her to quit using these. Subjective: No chest pain or shortness of breath. No nausea or vomiting. No abdominal pain. No obvious bleeding. Looks comfortable in the bed. Feels ready to go home. Objective: General appearance: Alert and comfortable. CVS: Normal S1 and S2 Lungs: Lungs are clear b/l Abdomen: Soft, bowel sounds present, no tenderness Extremities: No lower extremity edema Vital Signs/Physical Exam: Temp Pulse Resp BP Pulse Ox 98.3 F 95 H 20 168/104 H 98 03/04/25 08:00 03/04/25 08:50 03/04/25 08:00 03/04/25 08:50 03/04/25 08:00 Cardiovascular: Normal S1 S2 Laboratory Data at Discharge: WBC 12.10 thou/uL (4.3-10.9) H 03/04/25 04:26 Hgb 12.5 g/dL (12.0-15.0) 03/04/25 04: Hct 37.1 % (36.0-45.0) 03/04/25 04: Plt Count 314 thou/uL (152-406) 03/04/25 04:26 PT 12.0 SECONDS (10-13.0) 02/28/25 22: INR 1.06 02/28/25 22: APTT 35.4 SECONDS (27.2-37.4) 02/28/25 22:25 Sodium 139 mEq/L (136-145) D 03/04/25 04: Potassium 3.4 mEq/L (3.5-5.1) L 03/04/25 04:26 BUN 14 mg/dL (7-18) 03/04/25 04: Creatinine 0.46 mg/dL (0.55-1.02) L 03/04/25 04:26 Glucose 103 mg/dL (74-106) 03/04/25 04:26 Phosphorus 2.4 mg/dL (2.5-4.9) L 03/03/25 05:09 Magnesium 2.0 mg/dL (1.6-2.4) 03/03/25 05:09 Total Bilirubin 0.4 mg/dL (0.2-1.0) 03/02/25 07:36 AST 18 U/L (15-37) 03/02/25 07:36 ALT < 14 U/L (13-56) 03/02/25 07:36 Alkaline Phosphatase 47 U/L (45-117) 03/02/25 07:36 Home Medications: Atorvastatin Calcium [Lipitor*] 10 mg PO DAILY 05/22/16 Citalopram [Celexa*] 40 mg PO DAILY 05/22/16 Clopidogrel Bisulfate [Plavix*] 75 mg PO DAILY 05/22/16 Albuterol Sulfate [Proair Digihaler] 90 mcg IH Q4H PRN 30 Days #1 aer 03/04/25 Mometasone/Formoterol [Dulera 200 Mcg/5 Mcg Inhaler] 2 puff IH BID 30 Days #1 inhaler 03/04/25 Propranolol [Inderal*] 20 mg PO BID #60 tab 03/04/25 Tiotropium [place] [Spiriva] 1 spray IH DAILY 30 Days #1 inh 03/04/25 cefuroxime axetiL [Cefuroxime] 500 mg PO BID #4 tab 03/04/25 predniSONE [Prednisone*] 20 mg PO DAILY #5 tab 03/04/25 New Medications: cefuroxime axetiL [Cefuroxime] 500 mg PO BID #4 tab Mometasone/Formoterol [Dulera 200 Mcg/5 Mcg Inhaler] 2 puff IH BID 30 Days #1 inhaler Propranolol [Inderal*] 20 mg PO BID #60 tab predniSONE [Prednisone*] 20 mg PO DAILY #5 tab Albuterol Sulfate [Proair Digihaler] 90 mcg IH Q4H PRN 30 Days #1 aer PRN Reason: Shortness Of Breath Tiotropium [place] [Spiriva] 1 spray IH DAILY 30 Days #1 inh Diet: AHA Activity: Ad alisia Followup: Gopal Loredo MD [ACTIVE - CAN ADMIT] - (f/u in 1 week) Grace Flor NP [Primary Care Provider] - 1 Week (f/u in 1 week with CBC, CMP and UA) Time spent managing pt's care (in minutes): 32
[2025-03-04 13:11] VITALS: BP 168/108; TEMP 97.6
== END 2025-03-04 13:22 | disposition home health service (06) | DRG 70 ==
LOC: ER 21:48 → ERHOLD 03-01 03:24 → 3RD-ICU 03-01 04:08 → OBSVTOIN 03-02 11:23 → 2ND 03-03 16:40
PROVIDERS: ADMIT Family Medicine; ATTEND Hospitalist
PROC: 5A1935Z Respiratory Ventilation, Less than 24 Consecutive Hours (ICD-10-PCS; principal; 2025-03-01)
PROC: 0BH17EZ Insertion of Endotracheal Airway into Trachea, Via Natural or Artificial Opening (ICD-10-PCS; 2025-03-01)
PROC: 5A09357 Assistance with Respiratory Ventilation, Less than 24 Consecutive Hours, Continuous Positive Airway Pressure (ICD-10-PCS; 2025-03-01)
DX: G93.41 Metabolic encephalopathy (principal); E43 Unspecified severe protein-calorie malnutrition; J96.01 Acute respiratory failure with hypoxia; J96.02 Acute respiratory failure with hypercapnia; J18.9 Pneumonia, unspecified organism; J44.1 Chronic obstructive pulmonary disease with (acute) exacerbation; F05 Delirium due to known physiological condition; Z68.1 Body mass index [BMI] 19.9 or less, adult; E87.0 Hyperosmolality and hypernatremia; E87.1 Hypo-osmolality and hyponatremia; J44.0 Chronic obstructive pulmonary disease with (acute) lower respiratory infection; E86.0 Dehydration; E87.6 Hypokalemia; I10 Essential (primary) hypertension; F43.10 Post-traumatic stress disorder, unspecified; K21.9 Gastro-esophageal reflux disease without esophagitis; F17.200 Nicotine dependence, unspecified, uncomplicated; R31.29 Other microscopic hematuria; Z88.5 Allergy status to narcotic agent; Z79.02 Long term (current) use of antithrombotics/antiplatelets; Z86.73 Personal history of transient ischemic attack (TIA), and cerebral infarction without residual deficits; Z79.899 Other long term (current) drug therapy
CPT/HCPCS: 36415; 70450; 71045; 71250; 74018; 74176; 80048; 80053; 80076; 80143; 80179; 80307; 81001; 82077; 82805; 82947; 83605; 83735; 84100; 84439; 84443; 85025; 85610; 85730; 86140; 87040; 93005; 94002; 94003; 94640; 94660; 97116; 97161; 99285; G0378; J0360; J0696; J1630; J1650; J1938; J2250; J2704; J2919; J3010; J3411; J3480; J3535; J7030; J7040; J7512; J7613; J7644; J7799; P9047